=== PATIENT | female | born 1955 | race Caucasian/White ===

== ENCOUNTER 2017-05-05 11:17 | Observation (INO) | payer BC ==
[2017-05-05] MEDS ORDERED: NS 0.9% 1000 ML* 1,000 ML IV ONE (12:22)
--- NOTE | 2017-05-05 12:48 | RAD ---
INDICATION: Code ng. COMPARISON: Correlation is made with a prior MRI of the brain from November 15, 2014. TECHNIQUE: Contiguous axial sections of the brain were obtained from the skull base to the vertex without contrast. FINDINGS: The ventricles, cisterns and sulci are within normal limits. There are small areas of decreased density in the subcortical and periventricular white matter suggestive of mild chronic small vessel ischemic changes. No other focal abnormality or mass effect is seen. There is no evidence for hemorrhage. No significant focal osseous abnormality is seen. The visualized portion of the paranasal sinuses and mastoid air cells appear clear. The results of this exam were called to the referring clinician at 1240 hours. IMPRESSION: 1. NO EVIDENCE FOR GROSS ACUTE INFARCT, MASS EFFECT OR HEMORRHAGE. 2. FINDINGS SUGGESTIVE OF MILD CHRONIC SMALL VESSEL ISCHEMIC CHANGES.
[2017-05-05] MEDS ORDERED: Acetaminophen TAB* 325 MG PO ONE (12:51)
--- NOTE | 2017-05-05 13:02 | RAD ---
HISTORY: Neurological changes COMPARISONS: February 28, 2013 VIEWS:1: Single frontal portable view of the chest at 12:30 PM FINDINGS: LINES AND TUBES: None. CARDIOMEDIASTINAL SILHOUETTE: The cardiomediastinal silhouette is normal for portable technique. PLEURA: The costophrenic angles are sharp. No pleural abnormalities are noted. LUNG PARENCHYMA: The lungs are clear. ABDOMEN: The upper abdomen is clear. There is no subphrenic gas. BONES AND SOFT TISSUES: No bone or soft tissue abnormalities are noted. IMPRESSION: NO ACTIVE CARDIOPULMONARY DISEASE.
[2017-05-05 13:03] LABS: Hematocrit 34 % (35-47); Hemoglobin 11.3 g/dl (12.0-16.0); Mean Corpuscular HGB Conc 33 g/dl (31-36); Mean Corpuscular Hemoglobin 32 pg (27-31); Mean Corpuscular Volume 97 fL (80-97); Mean Platelet Volume 8 um3 (7.4-10.4); Red Blood Count 3.51 10^6/ul (4.0-5.4); Red Cell Distribution Width 13 % (10.5-15); White Blood Count 7.9 10^3/ul (3.5-10.8)
[2017-05-05 13:24] LABS: Albumin 3.8 g/dL (3.2-5.2); BUN/Creatinine Ratio 33.9 (8-20); EGFR African American 61.7 (>60); Globulin 2.9 g/dL (2-4); HDL Cholesterol 98.5 mg/dL; Potassium 5.8 mmol/L (3.5-5.0); Total Bilirubin 0.6 mg/dL (0.2-1.0); Total Protein 6.7 g/dL (6.4-8.9); Troponin I 0.07 ng/mL (<0.04)
[2017-05-05] MEDS ORDERED: rOPINIRole TAB* 1 MG PO ONE (14:02)
[2017-05-05] MEDS ORDERED: Hydrocortisone TAB* 5 MG PO ONE (14:33)
[2017-05-05] MEDS ORDERED: Omeprazole CAP* 20 MG PO ONE (14:33)
[2017-05-05] MEDS ORDERED: Hydrocortisone TAB* 10 MG PO ONE (14:48)
[2017-05-05] MEDS ORDERED: Acetaminophen TAB* 325 MG PO PRN (14:49)
[2017-05-05] MEDS ORDERED: Levalbuterol HFA INHALER* 1 PUFF MDI INH PRN (14:50)
[2017-05-05] MEDS ORDERED: LORazepam TAB(*) 1 MG PO PRN (14:50)
[2017-05-05] MEDS ORDERED: Ibuprofen TAB* 200 MG PO ONE (14:55)
--- NOTE | 2017-05-05 16:12 | ED ---
I, Oh,Sojalen, scribed for Willem Jack MD on 05/05/17 at 1221 . Dizziness - HPI Summary HPI Summary: This 62 y/o female presents to ED for acute room dizziness today 0900 AM. Dizziness makes pt's balance unsteady and still persists since the time of onset. Positive nausea, diaphoresis, and right sided ABDI. She also reports that her ABDI is recurrent. Pt was changing infusion for her insulin pump at the time of onset. PMHx includes Tho, COPD, DM type 1, HTN, and hyperthyroid. Plan of care involving CT scan and blood work is discussed with pt, and she is agreeable. - History Of Current Complaint Chief Complaint: EDDizziness Stated Complaint: GENERAL ILLNESS Time Seen by Provider: 05/05/17 11:59 Hx Obtained From: Patient Timing: Constant Character: Dizzy - unsteady balance Aggravating Factor(s): Nothing Alleviating Factor(s): Nothing Associated Signs And Symptoms: Positive: Nausea, Diaphoresis, Unsteady Gait. Negative: Fever - Allergies/Home Medications Allergies/Adverse Reactions: Allergies Allergy/AdvReac Type Severity Reaction Status Date / Time Ofloxacin Allergy Severe Swelling Verified 11/10/16 09:30 Ramipril Allergy Mild Coughing Verified 11/10/16 09:30 Home Medications: Home Medications Aclidinium [place] [Tudorza Pressair] 1 puff INH BID 05/05/17 [History Confirmed 05/05/17] Aspirin EC Low Dose* [Ecotrin EC Low Dose 81 MG*] 81 mg PO DAILY 05/05/17 [ History Confirmed 05/05/17] Cholecalciferol TAB* [Vitamin D TAB*] 2,000 units PO DAILY 05/05/17 [History Confirmed 05/05/17] Cranberry (Vaccinium Macrocarp [Cranberry] 4,200 mg PO BID 05/05/17 [History Confirmed 05/05/17] Escitalopram (NF) [Lexapro 10 mg (NF)] 10 mg PO DAILY 05/05/17 [History Confirmed 05/05/17] Escitalopram (NF) [Lexapro 5 mg (NF)] 5 mg PO DAILY 05/05/17 [History Confirmed 05/05/17] Fluticas/Salmet 115/21 HFA(NF) [Advair HFA 115/21 (NF)] 2 puff INH BID 05/05/17 [History Confirmed 05/05/17] Furosemide TAB* [Lasix TAB*] 20 mg PO DAILY PRN 05/05/17 [History Confirmed ] Glucagon (Rdna) [Glucagon Emergency Kit] 1 mg INJ ONCE PRN 05/05/17 [History Confirmed 05/05/17] Insulin Lispro [Humalog Kwikpen] 0 - 30 unit SUBCUT . DIRECTED MDD 30 units [History Confirmed 05/05/17] Insulin Lispro [Humalog Kwikpen] 0 - 80 unit SUBCUT . DIRECTED MDD 80 units [History Confirmed 05/05/17] LORazepam TAB(*) [Ativan 1 MG TAB (*)] 1 mg PO BEDTIME PRN 05/05/17 [History Confirmed 05/05/17] Levalbuterol HFA INHALER* [Xopenex Hfa Inhaler*] 1 puff INH Q6H PRN 05/05/17 [ History Confirmed 05/05/17] Levothyroxine TAB* [Synthroid TAB*] 175 mcg PO DAILY 05/05/17 [History Confirmed 05/05/17] Lidocaine PATCH 5%* [Lidoderm 5% Patch*] 1 patch TRANSDERM DAILY 05/05/17 [ History Confirmed 05/05/17] Losartan TAB* [Cozaar TAB*] 50 mg PO DAILY 05/05/17 [History Confirmed 05/05/17] Melatonin 1 mg PO BEDTIME PRN 05/05/17 [History Confirmed 05/05/17] Nitroglycerin TAB 0.4 MG* 0.4 mg SL Q5M PRN 05/05/17 [History Confirmed 05/05/17 ] Omeprazole CAP* [Prilosec CAP* 20 MG] 40 mg PO 1500 05/05/17 [History Confirmed 05/05/17] Ropinirole TAB* [Requip TAB*] 0.5 mg PO BEDTIME 05/05/17 [History Confirmed ] Ropinirole TAB* [Requip TAB*] 1 mg PO 2000 05/05/17 [History Confirmed 05/05/17] Simvastatin (NF) [Zocor (NF)] 40 mg PO DAILY 05/05/17 [History Confirmed 07/25/ 17] rOPINIRole TAB* [Requip TAB*] 0.5 mg PO 1500 05/05/17 [History Confirmed ] PMH/Surg Hx/FS Hx/Imm Hx Endocrine/Hematology History: Reports: Hx Diabetes Cardiovascular History: Reports: Hx Hypertension Denies: Hx Pacemaker/ICD Respiratory History: Reports: Hx Chronic Obstructive Pulmonary Disease (COPD) Denies: Hx Asthma History: Denies: Hx Dialysis, Hx Renal Disease Musculoskeletal History: Denies: Hx Osteoporosis Sensory History: Denies: Hx Hearing Aid Psychiatric History: Denies: Hx Panic Disorder - Cancer History Hx Chemotherapy: No Hx Radiation Therapy: No - Surgical History Surgery Procedure, Year, and Place: C SECTION X2, CATARACTS BILATERAL, APPENDECTOMY, TONSILECTOMY,EAR TUBES PRESENTLY Infectious Disease History: Yes Infectious Disease History: Denies: Traveled Outside the [place] in Last 30 Days - Family History Known Family History: Negative: Other - Breast CA - Social History Alcohol Use: Weekly Alcohol Amount: 2 beers /week Hx Substance Use: No Substance Use Type: Reports: None Hx Tobacco Use: Yes Smoking Status (MU): Former Smoker Type: Cigarettes Have You Smoked in the Last Year: No Review of Systems Positive: Skin Diaphoresis. Negative: Fever Positive: Nausea Neurological: Other - Positive for dizziness. Steady balance Positive: Headache - right sided ABDI All Other Systems Reviewed And Are Negative: Yes Physical Exam - Summary Physical Exam Summary: Well-appearing, no pain distress, BMI > 30 = obese Warm, dry, color reflects adequate perfusion. LUE upper arm ecchymosis Nml head/face Nml eyes Nml ENT Supple, non-tender CTA, breath sound present RRR Abd soft, non-tender, Bowel sounds + Nml musculoskeletal Nml neuro. NEGATIVE PRONATOR DRIFT. NORMAL [id number] test. WIDE BASE GAIT. UNSTEADY RHOMBERG. SUSTAINED LEFT NYSTAGMUS Nml psychiatric, affect/mood appropriate Triage Information Reviewed: Yes Vital Signs On Initial Exam: Initial Vitals Temp Pulse Resp BP Pulse Ox 97.2 F 79 19 152/66 100 05/05/17 11:22 05/05/17 11:22 05/05/17 11:22 05/05/17 11:22 05/05/17 11:22 Vital Signs Reviewed: Yes - [place] Coma Scale Coma Scale Total: 15 Diagnostics - Vital Signs Vital Signs Temp Pulse Resp BP Pulse Ox 05/05/17 11:22 97.2 F 79 19 152/66 100 - Laboratory Lab Results: Lab Results 05/05/17 05/05/17 05/05/17 Range/Units 12:41 12:41 12:41 WBC 7.9 (3.5-10.8) 10^3/ul RBC 3.51 L (4.0-5.4) 10^6/ul Hgb 11.3 L (12.0-16.0) g/dl Hct 34 L (35-47) % MCV 97 (80-97) fL MCH 32 H (27-31) pg MCHC 33 (31-36) g/dl RDW 13 (10.5-15) % Plt Count 313 (150-450) 10^3/ul MPV 8 (7.4-10.4) um3 Neut % (Auto) 75.0 (38-83) % Lymph % (Auto) 14.7 L (25-47) % Turner % (Auto) 9.3 H (1-9) % Eos % (Auto) 0.8 (0-6) % Baso % (Auto) 0.2 (0-2) % Absolute Neuts (auto) 5.9 (1.5-7.7) 10^3/ul Absolute Lymphs (auto) 1.2 (1.0-4.8) 10^3/ul Absolute Monos (auto) 0.7 (0-0.8) 10^3/ul Absolute Eos (auto) 0.1 (0-0.6) 10^3/ul Absolute Basos (auto) 0 (0-0.2) 10^3/ul Absolute Nucleated RBC 0 10^3/ul Nucleated RBC % 0 INR (Anticoag Therapy) 0.81 L (0.89-1.11) APTT 25.3 L (26.0-36.3) seconds Sodium 130 L (133-145) mmol/L Potassium 5.8 H (3.5-5.0) mmol/L Chloride 101 (101-111) mmol/L Carbon Dioxide 23 (22-32) mmol/L Anion Gap 6 (2-11) mmol/L BUN 39 H (6-24) mg/dL Creatinine 1.15 H (0.51-0.95) mg/dL Est GFR ( Amer) 61.7 (>60) Est GFR (Non-Af Amer) 48.0 (>60) BUN/Creatinine Ratio 33.9 H (8-20) Glucose 209 H (70-100) mg/dL Lactic Acid (0.5-2.0) mmol/L Calcium 10.0 (8.6-10.3) mg/dL Total Bilirubin 0.60 (0.2-1.0) mg/dL AST 22 (13-39) U/L ALT 28 (7-52) U/L Alkaline Phosphatase 75 (34-104) U/L Troponin I 0.07 H* (<0.04) ng/mL Total Protein 6.7 (6.4-8.9) g/dL Albumin 3.8 (3.2-5.2) g/dL Globulin 2.9 (2-4) g/dL Albumin/Globulin Ratio 1.3 (1-3) Triglycerides 76 mg/dL Cholesterol 211 mg/dL LDL Cholesterol 97 mg/dL HDL Cholesterol 98.5 mg/dL Blood Type Antibody Screen 05/05/17 05/05/17 Range/Units 12:41 12:41 WBC (3.5-10.8) 10^3/ul RBC (4.0-5.4) 10^6/ul Hgb (12.0-16.0) g/dl Hct (35-47) % MCV (80-97) fL MCH (27-31) pg MCHC (31-36) g/dl RDW (10.5-15) % Plt Count (150-450) 10^3/ul MPV (7.4-10.4) um3 Neut % (Auto) (38-83) % Lymph % (Auto) (25-47) % Turner % (Auto) (1-9) % Eos % (Auto) (0-6) % Baso % (Auto) (0-2) % Absolute Neuts (auto) (1.5-7.7) 10^3/ul Absolute Lymphs (auto) (1.0-4.8) 10^3/ul Absolute Monos (auto) (0-0.8) 10^3/ul Absolute Eos (auto) (0-0.6) 10^3/ul Absolute Basos (auto) (0-0.2) 10^3/ul Absolute Nucleated RBC 10^3/ul Nucleated RBC % INR (Anticoag Therapy) (0.89-1.11) APTT (26.0-36.3) seconds Sodium (133-145) mmol/L Potassium (3.5-5.0) mmol/L Chloride (101-111) mmol/L Carbon Dioxide (22-32) mmol/L Anion Gap (2-11) mmol/L BUN (6-24) mg/dL Creatinine (0.51-0.95) mg/dL Est GFR ( Amer) (>60) Est GFR (Non-Af Amer) (>60) BUN/Creatinine Ratio (8-20) Glucose (70-100) mg/dL Lactic Acid 1.7 (0.5-2.0) mmol/L Calcium (8.6-10.3) mg/dL Total Bilirubin (0.2-1.0) mg/dL AST (13-39) U/L ALT (7-52) U/L Alkaline Phosphatase (34-104) U/L Troponin I (<0.04) ng/mL Total Protein (6.4-8.9) g/dL Albumin (3.2-5.2) g/dL Globulin (2-4) g/dL Albumin/Globulin Ratio (1-3) Triglycerides mg/dL Cholesterol mg/dL LDL Cholesterol mg/dL HDL Cholesterol mg/dL Blood Type O Negative Antibody Screen Negative Result Diagrams: 05/05/17 12:41 05/05/17 12:41 Lab Statement: Any lab studies that have been ordered have been reviewed, and results considered in the medical decision making process. - Radiology CXR Xray Interpretation: No Acute Changes Radiology Interpretation Completed By: Radiologist - CT Brain CT Interpretation: No Acute Changes - 1. NO EVIDENCE FOR GROSS ACUTE INFARCT, MASS EFFECT OR HEMORRHAGE. 2. FINDINGS SUGGESTIVE OF MILD CHRONIC SMALL VESSEL ISCHEMIC CHANGES. CT Interpretation Completed By: Radiologist - EKG 1252 Cardiac Rate: NL - NSR with 82 bpm EKG Rhythm: Sinus Rhythm Dizzy Course/Dx - Course Course Of Treatment: Consultation with Dr. Espinosa (Neurologist) at 1225 PM -- will see pt in ED. Consultation with Dr. Levine (Hospitalist) at [address] Krause (Primary care provider) at 1415 PM Assessment/Plan: Ms. Perales was unsteady on her feet with a week romberg so a Code Ben was called when I saw her. Dr. Espinosa felt that she should be W/U as her findings were subtle. Her CT was fine and her trop returnde at 0.07. It is unclear what happenned. This could have been a near syncopal episode, hypoglycemia or a tia. She will be admitted and monitored. - Diagnoses Provider Diagnoses: Near syncope During the Visit The Following Alert/Code Occurred: Code Contreras - at 1219 PM - Provider Notifications Discussed Care Of Patient With: Coy Espinosa Time Discussed With Above Provider: 12:25 - Critical Care Time Critical Care Time: 30-74 min Discharge - Discharge Plan Condition: Stable Disposition: ADMITTED TO [facility] The documentation as recorded by the Hermilo freitas Soohyun accurately reflects the service I personally performed and the decisions made by me, Willem Jack MD.
--- NOTE | 2017-05-05 16:18 | CONS ---
NEUROLOGY CONSULTATION: DATE OF CONSULT: 05/05/17 She is in the emergency room. REFERRING PROVIDER: Dr. Willem Jack. PRIMARY CARE PHYSICIAN: Dr. Hector Krause. CHIEF COMPLAINT: Dizziness, headache, nausea. HISTORY OF PRESENT ILLNESS: Justice Perales is a 62-year-old woman who was in her usual state of health at 9 this morning, changing some of the components of her insulin pump. She suddenly got very sweaty and felt dizzy. She developed a headache. She spoke to her on the phone, was able to speak clearly. He advised that she go to the emergency room and so she called an ambulance, was brought in. She feels better now, but has a dull bifrontal headache and a little bit of nausea. The dizziness is at this point very mild and much better. There was never any change in vision, double vision, difficulty speaking, or new numbness. She has chronic numbness in her feet attributed to diabetic neuropathy. She did not check her blood sugar this morning when this started, but her fingerstick here in the emergency room is 207. She did not lose consciousness. Dr. Jack evaluated the patient and subsequently called a deya ng. PAST MEDICAL HISTORY: There is no prior history of cerebrovascular events. She has a history of juvenile onset diabetes and panhypopituitarism. There is no history of heart disease according to the patient, but she has a history of hypertension. She has had episodes of hypoglycemia in the past according to our record review. She has a history of hypothyroidism in addition to Tho' s disease. MEDICATIONS AT HOME: Consist of: 1. Insulin pump with Humalog insulin. 2. Hydrocortisone 5 mg tablets taken 2 in the morning, 1-1/2 at 3 p.m., and 0.5 in the evening. 3. Losartan 50 mg p.o. daily. 4. Levoxyl 175 mcg p.o. daily. 5. Advair inhaler 2 puffs b.i.d. 6. Xopenex inhaler p.r.n. 7. Lexapro 15 mg p.o. q.h.s. 8. Omeprazole 40 mg p.o. q.h.s. 9. Simvastatin 40 mg p.o. daily, which was just increased according to the patient. 10. Ropinirole 0.5 mg 1 at 3 p.m., 2 at 8 p.m., 1 at bedtime. 11. Aspirin 81 mg p.o. daily. 12. Vitamin D3 2000 units p.o. daily. 13. Lorazepam 1 mg p.o. q.h.s. p.r.n. insomnia. 14. Furosemide 20 mg p.r.n. edema. 15. Glucagon pen as needed. 16. Nitroglycerin 0.4 mg p.r.n. FAMILY HISTORY: Noncontributory. SOCIAL HISTORY: She is a nonsmoker. REVIEW OF SYSTEMS: Notable for diabetic retinopathy, detached retina, resultant poor vision in both eyes, but worse on the left. She has numbness in her feet, but no pain in her feet. She has not had any recent falls. No history of seizures or strokes. She has a history of gastroesophageal reflux, but no history of intestinal bleeding. No numbness of her face or upper extremities. She has a history of migraine headaches which she said she used to get as a child, but not in recent times; however, she also said that she was getting headaches every day for a while and Dr. Krause had her stopped taking nonsteroidals because of risks of renal disease. She takes Tylenol when she gets a headache currently, but it does not help very much. PHYSICAL EXAM: She is well nourished and well hydrated. Temperature is 97.2 temporally, blood pressure 150/60, heart rates in the 70s on the monitor and seems regular. Oxygen saturation is 100% on room air. Heart is in a regular rhythm without murmurs heard. Neck is supple. Carotid pulses are symmetrical and there are no cervical bruits. Lungs are clear anterolaterally. Oral mucosa is moist and atraumatic. Neurological Exam: Pupils react equally from 3 to 2.5 mm. She has retinal scars fairly extensively in both eyes and pale. Sharp optic discs. Eye movements are normal. Visual petty are full on the right eye, but she has diminished vision in the left eye. Facial musculature is symmetric. Facial sensation to light touch is symmetric as well. Tongue protrudes in the midline and palate rises symmetrically. Speech is clear without dysarthria. Hearing is intact. Neck strength is normal. Motor exam reveals atrophy of foot intrinsics, but normal tone and strength in the upper and lower extremities. There is no drift of the upper or lower extremities. Sensory exam is notable for distal loss to light touch in the toes. The rest of the sensory exam is normal. Reflexes are brisk at the knees, absent at the ankles, normal at the biceps. Plantar responses are flexor bilaterally. [id number] maneuver and [id number]-me-[id number] maneuver are normal bilaterally. Finger taps are normal in both hands. Language is fluent. She is a good historian with intact memory. She is oriented and attention and concentration seem intact. DIAGNOSTIC STUDIES/LAB DATA: CT of the brain is reviewed and reveals some patchy hypodensity in the deep white matter suggestive of chronic ischemic disease, but there are no hemorrhages, masses, or evidence of prior infarctions otherwise. EKG reveals a possible left axis deviation, but is otherwise unremarkable. All of her blood tests are still pending. IMPRESSION: Ms. Perales presents with a sudden onset of diaphoresis and feeling dizzy and headache. Her symptoms are fairly nonspecific for a stroke. Conceivably she could have a brainstem transient ischemic attack or stroke, but her exam is completely nonlocalizing and her symptoms are fairly nonspecific. She might have been hypoglycemic as an alternative or she could have had a cardiac event. I do not recommend TPA at the point that I initially evaluated her which was approximately 3 hours and 30 to 45 minutes after onset of symptoms. I recommend continued evaluation. Her blood tests are still pending and her fingerstick glucose currently is in good shape. Her EKG looks stable, but all the other labs are pending. If she continues to feel ill and lab test are unrevealing, then I had recommended MRI of the brain to look for evidence of brainstem ischemia. I have discussed my initial impression with Dr. Jack. [id number]/[facility] #: [id number] JUNIOR
--- NOTE | 2017-05-05 17:15 | RAD ---
Indication: Nausea and dizziness this morning. Gait abnormality. Diabetic. Comparison: CT of the same date and November 15, 2014 MRI. Technique: bMenua 1.5 Belkis [id number] with GEM suite. MRI brain without contrast. Report: Diffusion series is negative for acute or subacute ischemia. Susceptibility series is negative for stigmata of hemosiderin deposition to indicate previous hemorrhage. Unremarkable cerebral sulci, ventricles, basal cisterns. Unchanged small burden of nonspecific T2 hyperintensities within the periventricular and subcortical white matter of the cerebral hemispheres compared with the 2015 exam. Negative for associated mass effect. Negative for intra or extra-axial fluid collection. Preserved major intracranial flow-voids. Unremarkable orbital contents. Unremarkable calvarium and skull base. Grossly clear paranasal sinuses and mastoid air spaces. Unremarkable scalp. IMPRESSION: 1. No evidence for acute or subacute ischemia. 2. Negative for mass effect. 3. Nonspecific cerebral white matter hyperintensities without change compared with the 2015 exam most likely representing chronic small vessel ischemic disease however the differential includes demyelinating disease and white matter signal abnormalities seen in association with migraine headaches and prior foci of inflammation.
--- NOTE | 2017-05-05 17:18 | RAD ---
Indication: Dizziness, gait abnormality. Diabetic. Comparison: MRI of the same date. Technique: Corrigo [place] 1.5 Belkis [id number] with GEM suite. MR angiography 3-D [id number] data was obtained with rotational display of the [place] and posterior fossa arteries. Report: Negative for central intracranial aneurysm or vascular malformation. Unremarkable intracranial internal carotid arteries as well as the M1 and M2 segments of the middle cerebral arteries and the A1 and A2 segments of the anterior cerebral arteries. Small patent anterior communicating artery visualized. Unremarkable vertebral or and basilar arteries as well as the cerebellar artery origins. Patent posterior cerebral arteries are supplied primarily by the posterior circulation with normal variant hypoplastic posterior communicating arteries visualized. IMPRESSION: Negative MRA of the [place].
[2017-05-05 18:05] LABS: Troponin I 0.06 ng/mL (<0.04)
[2017-05-05 19:34] LABS: BUN/Creatinine Ratio 28.2 (8-20); Calcium 9.5 mg/dL (8.6-10.3); EGFR African American 60.5 (>60); Potassium 4.6 mmol/L (3.5-5.0)
[2017-05-05] MEDS: Mometasone/Formoter 200/5 MDI INH SCH (20:13)
[2017-05-05] MEDS: Aclidinium POWDER MDI(NF) INH SCH (20:16)
[2017-05-05] MEDS: Hydrocortisone TAB* 5 MG PO SCH (20:50)
[2017-05-05] MEDS: Heparin VIAL(*) 5000 UNITS/ML VIAL (FIVE THOUSAND) SUBCUT SCH (20:51)
[2017-05-05] MEDS: Ropinirole TAB* 0.5 MG TAB PO SCH (20:51)
[2017-05-05] MEDS: rOPINIRole TAB* 1 MG PO SCH (20:51)
[2017-05-05] MEDS: Lidocaine Patch REMOVE* 1 NOTE MISC PATCH OFF SCH (21:10)
--- NOTE | 2017-05-05 21:31 | HP ---
HISTORY AND PHYSICAL: DATE OF ADMISSION: 05/05/17 PRIMARY CARE PHYSICIAN: Dr. Hector Krause. CHIEF COMPLAINT: Presyncope. HISTORY OF PRESENT ILLNESS: Ms. Perales is a 62-year-old female with a history of Oliver's disease, type 1 diabetes with insulin pump, hypertension, COPD, hypothyroidism, restless leg syndrome who presents to the hospital with presyncopal symptoms. The patient states she woke up this morning and felt well. She had her morning pills and then ate breakfast. She noted her insulin pump was empty so she was standing up refilling it when suddenly she felt acute onset diaphoresis, lightheadedness, headache, nausea, some abdominal discomfort followed by loose stool. The patient states she had been standing up for about 10 minutes. She denies any chest pain, associated shortness of breath, but did feel some palpitations. Her happened to call around that time and she told him what was going on. He recommended she call the 911. She denies any focal weakness and she says her did not mention that she seemed to have any speech issues on the phone. The patient states when EMS arrived, her lightheadedness had seemed to improve, but her nausea and headache were still present and she still feels to some degree at this time. The patient's blood sugar when she checked at home was 174. She does state that over the past few days, she has noticed when she is bending down to pick something up and she stands back up, she feels very lightheaded, also noticed some urinary urgency that had been on for about 5 days. Denies any dysuria and she states the urgency symptoms resolved 2 to 3 days ago. PAST MEDICAL HISTORY: Type 1 diabetes, Tho's disease, hypertension, COPD, hypothyroidism, restless leg syndrome, GERD, hyperlipidemia, neuropathy, retinopathy and anxiety. PAST SURGICAL HISTORY: x2. HOME MEDICATIONS: 1. Ropinirole 0.5 mg at 3 p.m., 1 mg at 8 p.m., 0.5 mg by mouth at bedtime. 2. Omeprazole 40 mg by mouth at 3 p.m. 3. Hydrocortisone 10 mg by mouth in the morning, 7.5 mg by mouth in the afternoon, 2.5 mg by mouth at bedtime. 4. Melatonin 1 mg by mouth at bedtime as needed for sleep. 5. Cranberry 4200 mg by mouth 2 times daily. 6. Aspirin 81 mg by mouth daily. 7. Xopenex 1 puff inhaled every 6 hours as needed for shortness of breath or wheezing. 8. Tudorza 1 puff inhaled 2 times daily. 9. Advair 2 puffs inhaled 2 times daily. 10. Humalog insulin pump. 11. Simvastatin 40 mg by mouth daily. 12. Ativan 1 mg by mouth at bedtime as needed for insomnia. 13. Nitroglycerin 0.4 mg by mouth every 5 minutes as needed for chest pain. 14. Losartan 50 mg by mouth daily. 15. Lidocaine 1 patch transdermal daily. 16. Synthroid 175 mcg by mouth daily. 17. Lasix 20 mg by mouth daily as needed for lower extremity edema. 18. Lexapro 15 mg by mouth daily. 19. Vitamin D 2000 units by mouth daily. ALLERGIES: Reports allergies to RAMIPRIL and OFLOXACIN. FAMILY HISTORY: Significant for mother with thyroid problem, sister with hypertension. SOCIAL HISTORY: The patient is a half pack per day smoker for about 36 years, will have 2 beers a few times a week with her niece. She denies any illicit drug use. REVIEW OF SYSTEMS: A 12-point review of systems negative except for that as noted in the HPI. PHYSICAL EXAMINATION GENERAL: The patient is a pleasant, middle-aged female, lying in bed , in no apparent distress. VITAL SIGNS: On admission, temperature 97.2, heart rate of 79, respiratory rate of 19, O2 saturation 100% on room air, blood pressure 152/66. HEENT: Head: Normocephalic, atraumatic. Eyes: Pupils are equal, round, and reactive to light and accommodation. Anicteric sclerae. ENT: Moist mucous membranes. No cervical adenopathy. Posterior oropharynx is clear. LUNGS: Clear to auscultation bilaterally. No wheezes, rales, or rhonchi. CARDIOVASCULAR: Regular rate and rhythm. S1 and S2 present. No murmurs, gallops, or rubs. ABDOMEN: Soft, nontender, and nondistended. Bowel sounds positive. EXTREMITIES: No cyanosis, clubbing, or edema. NEUROLOGIC: The patient is alert and oriented x3. Strength is 5/5 throughout bilaterally in upper and lower extremities. Sensation intact and symmetric. Cranial nerves grossly intact. SKIN: Warm, dry, and well-perfused. DIAGNOSTIC STUDIES/LAB DATA: White blood cell count of 7.9, hematocrit of 34, platelets of 313, INR was 0.81. Sodium 130, potassium 5.8, chloride of 101, carbon dioxide of 23, BUN of 39, creatinine of 1.15, glucose of 209, lactic acid of 1.7. LFTs are within normal limits. Troponin of 0.07. EKG personally reviewed, shows normal sinus rhythm, no acute ST changes, no peaked T-wave. CT of the brain shows no evidence for gross acute infarct, mass effect, or hemorrhage. Chest x-ray, personally reviewed, shows no acute cardiac disease. ASSESSMENT AND PLAN: Presyncope, mild troponin elevation in a 62-year-old female with a past medical history of Oliver's disease, type 1 diabetes, hypertension, hypothyroidism. 1. Presyncope. With the patient's symptoms of nausea, diaphoresis, diarrhea, this sounds like a vasovagal episode, although it is not clear what may have triggered this. We will check the patient's orthostatic vital signs. UA is pending to evaluate for evidence of infection. The patient does have a mild troponin elevation of 0.07. We will continue to trend this for now and monitor the patient on telemetry to evaluate for any underlying arrhythmias. I appreciate Neurology's assistance. Dr. Espinosa does not feel this presentation was consistent with a stroke. However, he did recommend an MRI to rule out any posterior pathology. 2. History of Oliver's disease. With the patient's recent symptoms as well as her mild hyponatremia and hyperkalemia, will double the patient's home hydrocortisone dosing after discussing this with Dr. Krause. I will recheck a BMP later today to watch her potassium. She has no peaked T-waves on her EKG presently. 3. Hypertension. Blood pressures were a bit elevated when she came in, but have been trending down since then. We will hold off on her home losartan for now. 4. Chronic obstructive pulmonary disease. Continue Xopenex p.r.n. We will write for Dulera instead of the patient's Advair while she is hospitalized. 5. Diabetes. We will allow the patient to manage her insulin pump while hospitalized. We will check BGs q.a.c. and h.s. 6. Restless leg syndrome. Continue home ropinirole. 7. Hypothyroidism. Continue home Synthroid. We will add on TSH. 8. DVT prophylaxis. Heparin subcu. 9. Code status. The patient is a full code. TIME SPENT: Total time spent on this admission 60 minutes with over half the time spent [id number] with the patient in counseling and coordinating care. [id number]/CPS #: [id number] MTDD
[2017-05-06] MEDS: Levothyroxine TAB* 175 MCG TAB PO SCH (06:04)
[2017-05-06] MEDS: Heparin VIAL(*) 5000 UNITS/ML VIAL (FIVE THOUSAND) SUBCUT SCH ×3 (06:04→21:42)
[2017-05-06 06:37] LABS: Urine Bilirubin Negative (Negative); Urine Glucose Negative (Negative); Urine Nitrite Negative (Negative)
[2017-05-06] MEDS ORDERED: D5W 1000 ML BAG* 1,000 ML IV SCH (07:00)
[2017-05-06 07:54] LABS: Hematocrit 33 % (35-47); Hemoglobin 11.2 g/dl (12.0-16.0); Mean Corpuscular HGB Conc 34 g/dl (31-36); Mean Corpuscular Hemoglobin 33 pg (27-31); Mean Corpuscular Volume 96 fL (80-97); Mean Platelet Volume 7 um3 (7.4-10.4); Red Blood Count 3.41 10^6/ul (4.0-5.4); Red Cell Distribution Width 13 % (10.5-15); White Blood Count 5.4 10^3/ul (3.5-10.8)
--- NOTE | 2017-05-06 08:35 | PN ---
Subjective - Subjective Reason for Note: Discharge Note History: Discharge Summary Fredo Perales presented yesterday with an acute episode. She had completed b' fast (cereal, milk, coffee). She had stood for 15 mins doing the dishes - went up stairs to change her insulin pump set. She felt her stomach was "bad" - she needed to go to the bathroom. She had loose BM. At that time she developed bright lights as a halo around both eyes - she has had episodes like this before - and developed a headache. She was nauseated, but didn't vomit. She had abdominal discomfort. She felt light headed and need to sit down as she felt faint, but there was no syncope. The whole episode lasted 10 - 15 mins. Her called and suggested she call 911. She had no recent travel/long car journeys. She denies tick bites or other intercurrent illness. She has had no particular problems with her glycemic control. She hadn't missed her hydrocortisone for her primary adrenal insufficiency. Subsequent to this she has had a headache that continues - it is mostly right sided, she has slight photophobia. She is hungry this morning and feels normal. She had a hypoglycemic episode in the early hours. T1D on insulin pump: Basal rates; Midnight 1.65, 3 am 1./75, 6 pm 1.85 Insulin: carb ratio 1:10 Sensitivity 12 She has had no chest pain, dyspnea, palpitations or edema. She has a slight cough. Active Problems: Active Problems Diarrhea (Acute) R19.7 Elevated troponin I level (Acute) R74.8 Hypoglycemia (Acute) E16.2 Migraine (Acute) G43.909 Nausea (Acute) R11.0 Near syncope (Acute) Adrenal insufficiency (Tho's disease) (Chronic) E27.1 COPD (chronic obstructive pulmonary disease) (Chronic) J44.9 GERD (gastroesophageal reflux disease) (Chronic) K21.9 Hypercholesteremia (Chronic) E78.[address] (Chronic) Z96.41 Type 1 diabetes mellitus with nephropathy (Chronic) E10.21 Type 1 diabetes, controlled, with neuropathy (Chronic) E10.40 Current Medications: Current Medications Acetaminophen (Tylenol Tab*) 650 mg PO Q4H PRN PRN Reason: FEVER/PAIN Aclidinium [place] (Tudorza Press Mdi(Nf)) 1 puff INH BID KELLY Last Admin: 05/05/17 20:16 Dose: Not Given Aspirin (Aspirin Ec Low Dose*) 81 mg PO DAILY [facility] Atorvastatin Calcium (Lipitor*) 20 mg PO DAILY [facility] Cholecalciferol (Vitamin D Tab*) 2,000 units PO DAILY [facility] Citalopram Hydrobromide (Celexa Tab*) 30 mg PO DAILY [facility] PRN Reason: Protocol Heparin Sodium (Porcine) (Heparin Vial(*)) 5,000 units SUBCUT Q8HR [facility] Last Admin: 05/06/17 06:04 Dose: 5,000 units Hydrocortisone (Cortef Tab*) 15 mg PO 1500 [facility] Hydrocortisone (Cortef Tab*) 20 mg PO QAM [facility] Hydrocortisone (Cortef Tab*) 5 mg PO BEDTIME [facility] Last Admin: 05/05/17 20:50 Dose: 5 mg Dextrose (D5w 1000 Ml Bag*) 1,000 mls @ 100 mls/hr IV PER RATE [facility] Levalbuterol HCl (Xopenex Hfa Inhaler*) 1 puff INH Q6H PRN PRN Reason: SHORTNESS OF BREATH Levothyroxine Sodium (Synthroid Tab*) 175 mcg PO DAILY@0600 [facility] Last Admin: 05/06/17 06:04 Dose: 175 mcg Lidocaine (Lidoderm 5% Patch*) 1 patch TRANSDERM DAILY [facility] Lorazepam (Ativan Tab(*)) 1 mg PO BEDTIME PRN PRN Reason: SLEEP Mometasone Furoate/Formoterol Fumar (Dulera 200/5 Mdi*) 2 puff INH BID [facility] PRN Reason: Protocol Last Admin: 05/05/17 20:13 Dose: 2 puff Omeprazole (Prilosec Cap*) 40 mg PO 1500 [facility] Pharmacy Profile Note (Lidocaine Patch Remove*) 1 note PATCH OFF 2100 [facility] Last Admin: 05/05/17 21:10 Dose: Not Given Ropinirole HCl (Requip Tab*) 0.5 mg PO BEDTIME [facility] Last Admin: 05/05/17 20:51 Dose: 0.5 mg Ropinirole HCl (Requip Tab*) 1 mg PO 2000 [facility] Last Admin: 05/05/17 20:51 Dose: 1 mg Ropinirole HCl (Requip Tab*) 0.5 mg PO 1500 [facility] Home Medications: Home Medications Medication Instructions Recorded Confirmed Type Hydrocortisone 2.5 mg PO BEDTIME 11/13/14 05/05/17 History Hydrocortisone [Cortef] 7.5 mg PO 1500 11/10/16 05/05/17 History Hydrocortisone [Cortef] 10 mg PO QAM 11/10/16 05/05/17 History Aclidinium [place] [Tudorza 1 puff INH BID 05/05/17 05/05/17 History Pressair] Aspirin EC Low Dose* [Ecotrin EC 81 mg PO DAILY 05/05/17 05/05/17 History Low Dose 81 MG*] Cholecalciferol TAB* [Vitamin D 2,000 units PO DAILY 05/05/17 05/05/17 History TAB*] Cranberry (Vaccinium Macrocarp 4,200 mg PO BID 05/05/17 05/05/17 History [Cranberry] Escitalopram (NF) [Lexapro 10 mg 10 mg PO DAILY 05/05/17 05/05/17 History (NF)] Escitalopram (NF) [Lexapro 5 mg 5 mg PO DAILY 05/05/17 05/05/17 History (NF)] Fluticas/Salmet 115/21 HFA(NF) 2 puff INH BID 05/05/17 05/05/17 History [Advair HFA 115/21 (NF)] Furosemide TAB* [Lasix TAB*] 20 mg PO DAILY PRN 05/05/17 05/05/17 History Glucagon (Rdna) [Glucagon 1 mg INJ ONCE PRN 05/05/17 05/05/17 History Emergency Kit] Insulin Lispro [Humalog Kwikpen] 0 - 30 unit SUBCUT . DIRECTED 05/05/17 History MDD 30 units Insulin Lispro [Humalog Kwikpen] 0 - 80 unit SUBCUT . DIRECTED 05/05/17 History MDD 80 units LORazepam TAB(*) [Ativan 1 MG TAB 1 mg PO BEDTIME PRN 05/05/17 05/05/17 History (*)] Levalbuterol HFA INHALER* [Xopenex 1 puff INH Q6H PRN 05/05/17 05/05/17 History Hfa Inhaler*] Levothyroxine TAB* [Synthroid TAB*] 175 mcg PO DAILY 05/05/17 05/05/17 History Lidocaine PATCH 5%* [Lidoderm 5% 1 patch TRANSDERM DAILY 05/05/17 05/05/17 History Patch*] Losartan TAB* [Cozaar TAB*] 50 mg PO DAILY 05/05/17 05/05/17 History Melatonin 1 mg PO BEDTIME PRN 05/05/17 05/05/17 History Nitroglycerin TAB 0.4 MG* 0.4 mg SL Q5M PRN 05/05/17 05/05/17 History Omeprazole CAP* [Prilosec CAP* 20 40 mg PO 1500 05/05/17 05/05/17 History MG] Ropinirole TAB* [Requip TAB*] 0.5 mg PO BEDTIME 05/05/17 05/05/17 History Ropinirole TAB* [Requip TAB*] 1 mg PO 2000 05/05/17 05/05/17 History Simvastatin (NF) [Zocor (NF)] 40 mg PO DAILY 05/05/17 05/05/17 History rOPINIRole TAB* [Requip TAB*] 0.5 mg PO 1500 05/05/17 05/05/17 History Allergies: Allergies Allergy/AdvReac Type Severity Reaction Status Date / Time Ofloxacin Allergy Severe Swelling Verified 11/10/16 09:30 Ramipril Allergy Mild Coughing Verified 11/10/16 09:30 Objective - Vital Signs Vital Signs: Vital Signs 05/05/17 05/05/17 05/05/17 14:15 14:36 15:27 Temperature 98.4 F Pulse Rate 81 82 Respiratory 22 18 27 Rate Blood Pressure 98/78 123/75 (mmHg) O2 Sat by Pulse 98 96 Oximetry 05/05/17 05/05/17 05/05/17 15:30 15:40 15:50 Temperature Pulse Rate Respiratory 19 8 11 Rate Blood Pressure (mmHg) O2 Sat by Pulse Oximetry 05/05/17 05/05/17 05/05/17 17:24 17:30 17:40 Temperature Pulse Rate Respiratory 20 12 25 Rate Blood Pressure (mmHg) O2 Sat by Pulse Oximetry 05/05/17 05/05/17 05/05/17 17:50 18:00 18:10 Temperature Pulse Rate Respiratory 17 22 17 Rate Blood Pressure (mmHg) O2 Sat by Pulse Oximetry 05/05/17 05/05/17 05/05/17 18:20 18:30 18:40 Temperature Pulse Rate Respiratory 18 24 16 Rate Blood Pressure (mmHg) O2 Sat by Pulse Oximetry 05/05/17 05/05/17 05/05/17 18:50 19:00 19:10 Temperature Pulse Rate Respiratory 14 21 12 Rate Blood Pressure (mmHg) O2 Sat by Pulse Oximetry 05/05/17 05/05/17 05/05/17 19:20 19:30 19:38 Temperature 98.5 F Pulse Rate 77 Respiratory 17 16 20 Rate Blood Pressure 118/48 (mmHg) O2 Sat by Pulse 98 Oximetry 05/05/17 05/05/17 05/05/17 19:40 19:50 20:00 Temperature Pulse Rate Respiratory 13 16 11 Rate Blood Pressure (mmHg) O2 Sat by Pulse 98 Oximetry 05/05/17 05/05/17 05/05/17 20:10 20:20 20:30 Temperature Pulse Rate Respiratory 15 15 15 Rate Blood Pressure (mmHg) O2 Sat by Pulse Oximetry 05/05/17 05/05/17 05/05/17 20:40 20:50 21:00 Temperature Pulse Rate Respiratory 10 12 15 Rate Blood Pressure (mmHg) O2 Sat by Pulse Oximetry 05/05/17 05/05/17 05/05/17 21:10 21:20 21:30 Temperature Pulse Rate Respiratory 13 13 14 Rate Blood Pressure (mmHg) O2 Sat by Pulse Oximetry 05/05/17 05/05/17 05/05/17 21:40 21:50 22:00 Temperature Pulse Rate Respiratory 13 15 14 Rate Blood Pressure (mmHg) O2 Sat by Pulse Oximetry 05/05/17 05/05/17 05/05/17 22:10 22:20 22:30 Temperature Pulse Rate Respiratory 20 14 14 Rate Blood Pressure (mmHg) O2 Sat by Pulse Oximetry 05/05/17 05/05/17 05/05/17 22:40 22:46 22:50 Temperature 98.4 F Pulse Rate 77 Respiratory 14 16 14 Rate Blood Pressure 126/49 (mmHg) O2 Sat by Pulse 97 Oximetry 05/05/17 05/05/17 05/05/17 23:00 23:10 23:12 Temperature Pulse Rate Respiratory 0 6 14 Rate Blood Pressure (mmHg) O2 Sat by Pulse Oximetry 05/05/17 05/05/17 05/05/17 23:20 23:30 23:40 Temperature Pulse Rate Respiratory 14 14 16 Rate Blood Pressure (mmHg) O2 Sat by Pulse Oximetry 05/05/17 05/06/17 05/06/17 23:50 00:00 00:10 Temperature Pulse Rate Respiratory 14 13 14 Rate Blood Pressure (mmHg) O2 Sat by Pulse Oximetry 05/06/17 05/06/17 05/06/17 00:20 00:30 00:40 Temperature Pulse Rate Respiratory 14 13 15 Rate Blood Pressure (mmHg) O2 Sat by Pulse Oximetry 05/06/17 05/06/17 05/06/17 00:50 01:00 01:10 Temperature Pulse Rate Respiratory 13 13 15 Rate Blood Pressure (mmHg) O2 Sat by Pulse Oximetry 05/06/17 05/06/17 05/06/17 01:20 01:30 01:40 Temperature Pulse Rate Respiratory 18 14 13 Rate Blood Pressure (mmHg) O2 Sat by Pulse Oximetry 05/06/17 05/06/17 05/06/17 01:50 02:00 02:10 Temperature Pulse Rate Respiratory 13 12 12 Rate Blood Pressure (mmHg) O2 Sat by Pulse Oximetry 05/06/17 05/06/17 05/06/17 02:20 02:30 02:40 Temperature Pulse Rate Respiratory 13 13 14 Rate Blood Pressure (mmHg) O2 Sat by Pulse Oximetry 05/06/17 05/06/17 05/06/17 02:50 03:00 03:07 Temperature 98.3 F Pulse Rate 75 Respiratory 14 15 16 Rate Blood Pressure 124/53 (mmHg) O2 Sat by Pulse 97 Oximetry 05/06/17 05/06/17 05/06/17 03:10 03:20 03:30 Temperature Pulse Rate Respiratory 14 12 17 Rate Blood Pressure (mmHg) O2 Sat by Pulse Oximetry 05/06/17 05/06/17 05/06/17 03:40 03:50 04:00 Temperature Pulse Rate Respiratory 15 15 14 Rate Blood Pressure (mmHg) O2 Sat by Pulse Oximetry 05/06/17 05/06/17 05/06/17 04:10 04:20 04:30 Temperature Pulse Rate Respiratory 15 14 15 Rate Blood Pressure (mmHg) O2 Sat by Pulse Oximetry 05/06/17 05/06/17 05/06/17 04:40 04:50 05:00 Temperature Pulse Rate Respiratory 15 15 15 Rate Blood Pressure (mmHg) O2 Sat by Pulse Oximetry 05/06/17 05/06/17 05/06/17 05:10 05:20 05:30 Temperature Pulse Rate Respiratory 15 15 16 Rate Blood Pressure (mmHg) O2 Sat by Pulse Oximetry 05/06/17 05/06/17 05/06/17 05:40 05:50 06:00 Temperature Pulse Rate Respiratory 16 16 12 Rate Blood Pressure (mmHg) O2 Sat by Pulse Oximetry 05/06/17 05/06/17 05/06/17 06:10 06:20 06:30 Temperature Pulse Rate Respiratory 24 31 16 Rate Blood Pressure (mmHg) O2 Sat by Pulse Oximetry 05/06/17 05/06/17 05/06/17 06:40 06:50 07:00 Temperature Pulse Rate Respiratory 12 14 14 Rate Blood Pressure (mmHg) O2 Sat by Pulse Oximetry 05/06/17 05/06/17 05/06/17 07:10 07:18 07:20 Temperature 97.6 F Pulse Rate 75 Respiratory 14 18 Rate Blood Pressure 112/46 (mmHg) O2 Sat by Pulse 98 98 Oximetry - Intake and Output Intake and Output: Intake & Output 05/03/17 05/04/17 05/05/17 05/06/17 11:59 11:59 11:59 11:59 Intake Total 370 Output Total 0 Balance 370 Weight 188 lb 12.8 oz Intake: Oral 370 Output: Urine 0 Other: Estimated Void Large # Bowel Movements 0 # Voids 1 ADLs: Meal Record Start: 05/05/17 14: 36 Freq: DAILY@0900,1400,1800 Status: Active Created 05/05/17 14:36 System (Rec: 05/05/17 14:36 System [email or web address]) Document 05/05/17 18:00 [id number] (Rec: 05/05/17 20:32 [id number]) Intake and Output Start: 05/05/17 11: 22 Freq: Status: Active Created 05/05/17 11:22 System (Rec: 05/05/17 11:22 System [id number]) Intake and Output Start: 05/05/17 14: 36 Freq: DAILY@0600,1400,2200 Status: Active Created 05/05/17 14:36 System (Rec: 05/05/17 14:36 System [email or web address]) Document 05/05/17 21:55 [id number] (Rec: 05/05/17 21:56 [id number]) Document 05/06/17 05:48 [id number] (Rec: 05/06/17 05:49 [id number]) - Physical Exam General Physical Exam Comment: Warm and well perfused, in no distress. She has a headache. BP 118/80 standing - this did not decline after 5 mins General: No Cyanosis, No Anemia, No Jaundice, No Clubbing Lungs and Chest: Yes: Chest Expansion Full, Chest Expansion Symetrica, Percussion Note Resonant, Vessicular Breath Sounds. No: Crackles, Wheezes Heart Rate and Rhythm: Regular JVP: Not Elevated Additional Cardiovascular: Yes: Normal Heart Sounds, Heart Murmur - 2/6 aortic systolic murmur. No: Pedal Edema Abdominal Exam: Yes: Soft, Bowel Sounds Present. No: Distention, Abdominal Mass , Hepatomegaly, Abdominal Tenderness - Extremities Cranial Nerves II-XII Intact: Yes Limbs: Normal Power, Normal Tone - Neuro Orientation: A/O x3 Speech: Normal Results - Results Lab Results: Laboratory Results - last 24 hr 05/05/17 05/05/17 05/05/17 15:41 17:24 17:27 WBC RBC Hgb Hct MCV MCH MCHC RDW Plt Count MPV Neut % (Auto) Lymph % (Auto) Lamb % (Auto) Eos % (Auto) Baso % (Auto) Absolute Neuts (auto) Absolute Lymphs (auto) Absolute Monos (auto) Absolute Eos (auto) Absolute Basos (auto) Absolute Nucleated RBC Nucleated RBC % Sodium 131 L Potassium 4.6 Chloride 104 Carbon Dioxide 23 Anion Gap 4 BUN 33 H Creatinine 1.17 H Est GFR ( Amer) 60.5 Est GFR (Non-Af Amer) 47.0 BUN/Creatinine Ratio 28.2 H Glucose 119 H POC Glucose (mg/dL) 189 H Calcium 9.5 Troponin I 0.06 H* TSH 0.16 L Urine Color Urine Appearance Urine pH Ur Specific [place] Urine Protein Urine Ketones Urine Blood Urine Nitrate Urine Bilirubin Urine Urobilinogen Ur Leukocyte Esterase Urine Glucose 05/05/17 05/05/17 05/06/17 20:20 20:21 06:02 WBC RBC Hgb Hct MCV MCH MCHC RDW Plt Count MPV Neut % (Auto) Lymph % (Auto) Lamb % (Auto) Eos % (Auto) Baso % (Auto) Absolute Neuts (auto) Absolute Lymphs (auto) Absolute Monos (auto) Absolute Eos (auto) Absolute Basos (auto) Absolute Nucleated RBC Nucleated RBC % Sodium Potassium Chloride Carbon Dioxide Anion Gap BUN Creatinine Est GFR ( Amer) Est GFR (Non-Af Amer) BUN/Creatinine Ratio Glucose POC Glucose (mg/dL) 248 H 43 L Calcium Troponin I 0.06 H* TSH Urine Color Urine Appearance Urine pH Ur Specific [place] Urine Protein Urine Ketones Urine Blood Urine Nitrate Urine Bilirubin Urine Urobilinogen Ur Leukocyte Esterase Urine Glucose 05/06/17 05/06/17 05/06/17 06:18 06:25 07:30 WBC RBC Hgb Hct MCV MCH MCHC RDW Plt Count MPV Neut % (Auto) Lymph % (Auto) Lamb % (Auto) Eos % (Auto) Baso % (Auto) Absolute Neuts (auto) Absolute Lymphs (auto) Absolute Monos (auto) Absolute Eos (auto) Absolute Basos (auto) Absolute Nucleated RBC Nucleated RBC % Sodium Potassium Chloride Carbon Dioxide Anion Gap BUN Creatinine Est GFR ( Amer) Est GFR (Non-Af Amer) BUN/Creatinine Ratio Glucose POC Glucose (mg/dL) 72 L 131 H Calcium Troponin I TSH Urine Color Straw Urine Appearance Clear Urine pH 5.0 Ur Specific [place] 1.006 L Urine Protein Negative Urine Ketones Negative Urine Blood Negative Urine Nitrate Negative Urine Bilirubin Negative Urine Urobilinogen Negative Ur Leukocyte Esterase Negative Urine Glucose Negative 05/06/17 07:41 WBC 5.4 RBC 3.41 L Hgb 11.2 L Hct 33 L MCV 96 MCH 33 H MCHC 34 RDW 13 Plt Count 285 MPV 7 L Neut % (Auto) 61.6 Lymph % (Auto) 23.5 L Lamb % (Auto) 10.6 H Eos % (Auto) 3.9 Baso % (Auto) 0.4 Absolute Neuts (auto) 3.4 Absolute Lymphs (auto) 1.3 Absolute Monos (auto) 0.6 Absolute Eos (auto) 0.2 Absolute Basos (auto) 0 Absolute Nucleated RBC 0.01 Nucleated RBC % 0.1 Sodium Potassium Chloride Carbon Dioxide Anion Gap BUN Creatinine Est GFR ( Amer) Est GFR (Non-Af Amer) BUN/Creatinine Ratio Glucose POC Glucose (mg/dL) Calcium Troponin I TSH Urine Color Urine Appearance Urine pH Ur Specific [place] Urine Protein Urine Ketones Urine Blood Urine Nitrate Urine Bilirubin Urine Urobilinogen Ur Leukocyte Esterase Urine Glucose Radiology Results: Patient Name: FREDO PERALES Medical Record#: [id number] Ordering Physician: Ignacio Levine MD Acct.#: [id number] : 1955 Age: 62 Sex: F Location: [address] [place] [address] MEDICAL/TELEMETRY Exam Date: 05/05/17 162 ADM Status: ADM Mikal Order Information: MRI BRAIN W/O Accession Number: [id number] CPT: 98298 Indication: Nausea and dizziness this morning. Gait abnormality. Diabetic. Comparison: CT of the same date and November 15, 2014 MRI. Technique: [employer] 1.5 Belkis [id number] with GEM suite. MRI brain without contrast. Report: Diffusion series is negative for acute or subacute ischemia. Susceptibility series is negative for stigmata of hemosiderin deposition to indicate previous hemorrhage. Unremarkable cerebral sulci, ventricles, basal cisterns. Unchanged small burden of nonspecific T2 hyperintensities within the periventricular and subcortical white matter of the cerebral hemispheres compared with the 2015 exam. Negative for associated mass effect. Negative for intra or extra-axial fluid collection. Preserved major intracranial flow-voids. Unremarkable orbital contents. Unremarkable calvarium and skull base. Grossly clear paranasal sinuses and mastoid air spaces. Unremarkable scalp. IMPRESSION: 1. No evidence for acute or subacute ischemia. 2. Negative for mass effect. 3. Nonspecific cerebral white matter hyperintensities without change compared with the 2014 exam most likely representing chronic small vessel ischemic disease however the differential includes demyelinating disease and white matter signal abnormalities seen in association with migraine headaches and prior foci of inflammation. <Electronically signed by Phil Colbert MD in OV> 05/05/171710 Dictated By: Phil Colbert MD Dictated Date/Time: 05/05/171710 Transcribed Date/Time: 05/05/171705 Copy to: CC:Hector Krause MD; Ignacio Levine MD Imaging - [facility] Imaging - [facility] [address] [address] ph [phone]) ph [phone]) ph ([phone]) 1 of 1 Patient Name: FREDO PERALES Medical Record#: [id number] Ordering Physician: Ignacio Levine MD Acct.#: [id number] : 1955 Age: 62 Sex: F Location: [address] [place] [address]/TELEMETRY Exam Date: 05/05/17 145 ADM Status: ADM Mikal Order Information: MRA HEAD W/O Accession Number: [id number] CPT: 51195 Indication: Dizziness, gait abnormality. Diabetic. Comparison: MRI of the same date. Technique: [employer] 1.5 Belkis [id number] with GEM suite. MR angiography 3-D time- of-flight data was obtained with rotational display of the port [place] of [place] and posterior fossa arteries. Report: Negative for central intracranial aneurysm or vascular malformation. Unremarkable intracranial internal carotid arteries as well as the M1 and M2 segments of the middle cerebral arteries and the A1 and A2 segments of the anterior cerebral arteries. Small patent anterior communicating artery visualized. Unremarkable vertebral or and basilar arteries as well as the cerebellar artery origins. Patent posterior cerebral arteries are supplied primarily by the posterior circulation with normal variant hypoplastic posterior communicating arteries visualized. IMPRESSION: Negative MRA of the port [place] of [place]. <Electronically signed by Phil Colbert MD in OV> 05/05/171714 Dictated By: Phil Colbert MD Dictated Date/Time: 05/05/171714 Transcribed Date/Time: 05/05/171711 Copy to: CC:Hector Krause MD; Ignacio Levine MD Imaging - [facility] - [facility] [address] [address] [place], [place] [id number] [place] [address] ph [phone]) ph [phone]) ph ([phone]) 1 of 1 Patient Name: FREDO PERALES Medical Record#: [id number] Ordering Physician: Willem Jack MD Acct.#: [id number] : 1955 Age: 62 Sex: F Location: EMERGENCY DEPARTMENT Exam Date: 05/05/17 122 ADM Status: REG ER Order Information: CHEST AP PORTABLE Accession Number: [id number] CPT: 05116 HISTORY: Neurological changes COMPARISONS: February 28, 2013 VIEWS:1: Single frontal portable view of the chest at 12:30 PM FINDINGS: LINES AND TUBES: None. CARDIOMEDIASTINAL SILHOUETTE: The cardiomediastinal silhouette is normal for portable technique. PLEURA: The costophrenic angles are sharp. No pleural abnormalities are noted. LUNG PARENCHYMA: The lungs are clear. ABDOMEN: The upper abdomen is clear. There is no subphrenic gas. BONES AND SOFT TISSUES: No bone or soft tissue abnormalities are noted. IMPRESSION: NO ACTIVE CARDIOPULMONARY DISEASE. <Electronically signed by Jerzy Robbins MD in OV> 05/05/17 1259 Dictated By: Jerzy Robbins MD Dictated Date/Time: 05/05/17 1259 Transcribed Date/Time: 05/05/17 1258 Copy to: CC:Hector Krause MD; Willem Jack MD Imaging - [facility] Imaging [facility] [address] [place] [address] ph [phone]) ph [phone]) ph [phone]) Patient Name: FREDO PERALES Medical Record#: [id number] Ordering Physician: Willem Jack MD Acct.#: [id number] : 1955 Age: 62 Sex: F Location: EMERGENCY DEPARTMENT Exam Date: 05/05/171221 ADM Status: REG ER Order Information: CT BRAIN WO Accession Number: [id number] CPT: 88590 INDICATION: Code ng. COMPARISON: Correlation is made with a prior MRI of the brain from November. TECHNIQUE: Contiguous axial sections of the brain were obtained from the skull base to the vertex without contrast. FINDINGS: The ventricles, cisterns and sulci are within normal limits. There are small areas of decreased density in the subcortical and periventricular white matter suggestive of mild chronic small vessel ischemic changes. No other focal abnormality or mass effect is seen. There is no evidence for hemorrhage. No significant focal osseous abnormality is seen. The visualized portion of the paranasal sinuses and mastoid air cells appear clear. The results of this exam were called to the referring clinician at 1240 hours. IMPRESSION: 1. NO EVIDENCE FOR GROSS ACUTE INFARCT, MASS EFFECT OR HEMORRHAGE. 2. FINDINGS SUGGESTIVE OF MILD CHRONIC SMALL VESSEL ISCHEMIC CHANGES. <Electronically signed by Zeyad Keenan MD in OV> 05/05/17 1245 Dictated By: Zeyad Keenan MD Dictated Date/Time: 05/05/17 1245 Transcribed Date/Time: 05/05/17 1231 Copy to: CC:Hector Krause MD; Willem Jack MD Imaging - [facility] - [facility] [address] [place] [address] ph [phone]) ph [phone]) ph [phone]) EKG Report: EKG SR 82 IL 150 QTc 425 QRSD 96 QRS axis -19. Septal T wave changes, poor R wave progression septal leads. 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 This lasted 15 mins. She was not hypoglycemic. She has indeterminate troponin I levels. Differential diagnosis is wide - vasovagal episode, acute migraine, myocardial ischemia (lack of chest symptoms due to neuropathy), PE. I note that she has had no CVA as the MRI/MRA/CT scans of her brain were normal. She has a persistent headache today. She has had recently had more headaches and they have been many times per week. In addition, she has scintillating scotomas associated with some of them. She may also have insufficient mineralocorticoid replacement. I will add a Troponin I. I note she had a normal [place] lexiscan stress test 07/27/2015 - her EKG is likely normal, though there may be some subtle septal lead changes. Hypoglycemia (Acute) This occured early this morning. I will reduce her basal rate overnight Adrenal insufficiency (Tho's disease) (Chronic) I have doubled her hydrocortisone. Since her sodium was low on admission, I will start her on a small dose of fludrocortisone. 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 I will discharge her if this is normal. I will also check a d-dimer - if it is negative it will be reassuring. If it is positive, I will consider if we need another test to rule out PE. I discussed this with the patient - she agrees with the plan
[2017-05-06] MEDS: Aspirin EC Low Dose* 81 MG TAB.EC PO SCH (08:38)
[2017-05-06] MEDS: Atorvastatin* 20 MG TAB PO SCH (08:38)
[2017-05-06] MEDS: Lidocaine PATCH 5%* 1 PATCH TRANSDERM SCH (08:38)
[2017-05-06] MEDS: Cholecalciferol TAB* 1000 UNITS PO SCH (08:38)
[2017-05-06] MEDS: Citalopram TAB* 10 MG PO SCH (08:38)
[2017-05-06] MEDS: Mometasone/Formoter 200/5 MDI INH SCH ×2 (08:48→20:00)
[2017-05-06] MEDS: Aclidinium POWDER MDI(NF) INH SCH ×2 (08:49→20:02)
[2017-05-06] MEDS ORDERED: Hydrocortisone TAB* 10 MG PO SCH (09:00)
[2017-05-06] MEDS ORDERED: Escitalopram (NF) 10 MG TAB PO SCH (09:00)
[2017-05-06 10:11] LABS: Troponin I 0.06 ng/mL (<0.04)
[2017-05-06] MEDS ORDERED: Iodixanol* (CONTRAST) 320 MG/ML 100 ML SDV IV ONE (13:25)
[2017-05-06 13:40] LABS: EGFR African American 64.3 (>60)
--- NOTE | 2017-05-06 14:26 | RAD ---
INDICATION: Elevated d-dimer. Presyncope. COMPARISON: May 05, 2017 chest radiograph TECHNIQUE: Multidetector CT images were obtained from the lung apices to the upper abdomen with 81 mL Visipaque 320 IV contrast. Pulmonary angiogram protocol. Multiplanar reformation including with maximum intensity projection. REPORT: Minimal dependent atelectasis. No suspicious focal pulmonary lesion or alveolar consolidation concerning for pneumonia. Negative for pleural effusion or pneumothorax. Negative for thoracic lymphadenopathy. Upper normal heart size. Negative for pericardial effusion. Normal diameter thoracic aorta with mild atherosclerotic plaque. Negative for aortic dissection. No filling defects are identified from the main to the subsegmental pulmonary arteries to indicate presence of a pulmonary embolism. Unremarkable Limited images through the upper abdomen. Negative for suspicious thoracic osseous lesions. IMPRESSION: 1. No evidence for pulmonary embolism. 2. No acute intrathoracic disease evident.
[2017-05-06] MEDS: Omeprazole CAP* 20 MG PO SCH (14:55)
[2017-05-06] MEDS: Ropinirole TAB* 0.5 MG TAB PO SCH ×2 (14:56→20:32)
[2017-05-06] MEDS ORDERED: Hydrocortisone TAB* 5 MG PO SCH (15:00)
[2017-05-06] MEDS: rOPINIRole TAB* 1 MG PO SCH (20:32)
[2017-05-06] MEDS: Lidocaine Patch REMOVE* 1 NOTE MISC PATCH OFF SCH (20:33)
[2017-05-06] MEDS: Hydrocortisone TAB* 5 MG PO SCH (21:42)
[2017-05-07] MEDS: Levothyroxine TAB* 175 MCG TAB PO SCH (05:19)
[2017-05-07] MEDS: Heparin VIAL(*) 5000 UNITS/ML VIAL (FIVE THOUSAND) SUBCUT SCH ×2 (05:19→13:56)
[2017-05-07] MEDS: Mometasone/Formoter 200/5 MDI INH SCH ×2 (07:58→19:57)
[2017-05-07] MEDS: Aclidinium POWDER MDI(NF) INH SCH ×2 (07:58→19:57)
--- NOTE | 2017-05-07 08:27 | PN ---
Subjective - Subjective Reason for Note: Discharge Note History: Contingent discharge summary She has had no chest discomfort, nausea, vomiting, abdo pain, diarrhea, diaphoresis. Her D-Dimer was positive and her CTA chest was negative for PE. She is due for a NM stress test today. 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 COPD (chronic obstructive pulmonary disease) (Chronic) J44.9 GERD (gastroesophageal reflux disease) (Chronic) K21.9 Hypercholesteremia (Chronic) E78.[address] (Chronic) Z96.41 Type 1 diabetes mellitus with nephropathy (Chronic) E10.21 Type 1 diabetes, controlled, with neuropathy (Chronic) E10.40 Current Medications: Current Medications Acetaminophen (Tylenol Tab*) 650 mg PO Q4H PRN PRN Reason: FEVER/PAIN Aclidinium [place] (Tudorza Press Mdi(Nf)) 1 puff INH BID [facility] Last Admin: 05/07/17 07:58 Dose: Not Given Aspirin (Aspirin Ec Low Dose*) 81 mg PO DAILY [facility] Last Admin: 05/06/17 08:38 Dose: 81 mg Atorvastatin Calcium (Lipitor*) 20 mg PO DAILY [facility] Last Admin: 05/06/17 08:38 Dose: 20 mg Cholecalciferol (Vitamin D Tab*) 2,000 units PO DAILY [facility] Last Admin: 05/06/17 08:38 Dose: 2,000 units Citalopram Hydrobromide (Celexa Tab*) 30 mg PO DAILY [facility] PRN Reason: Protocol Last Admin: 05/06/17 08:38 Dose: 30 mg Fludrocortisone Acetate (Florinef Tab*) 0.1 mg PO DAILY [facility] Heparin Sodium (Porcine) (Heparin Vial(*)) 5,000 units SUBCUT Q8HR [facility] Last Admin: 05/07/17 05:19 Dose: 5,000 units Hydrocortisone (Cortef Tab*) 15 mg PO 1500 [facility] Last Admin: 05/06/17 14:56 Dose: 15 mg Hydrocortisone (Cortef Tab*) 20 mg PO QAM [facility] Last Admin: 05/06/17 08:38 Dose: 20 mg Hydrocortisone (Cortef Tab*) 5 mg PO BEDTIME [facility] Last Admin: 05/06/17 21:42 Dose: 5 mg Levalbuterol HCl (Xopenex Hfa Inhaler*) 1 puff INH Q6H PRN PRN Reason: SHORTNESS OF BREATH Levothyroxine Sodium (Synthroid Tab*) 175 mcg PO DAILY@0600 [facility] Last Admin: 05/07/17 05:19 Dose: 175 mcg Lidocaine (Lidoderm 5% Patch*) 1 patch TRANSDERM DAILY [facility] Last Admin: 05/06/17 08:38 Dose: Not Given Lorazepam (Ativan Tab(*)) 1 mg PO BEDTIME PRN PRN Reason: SLEEP Mometasone Furoate/Formoterol Fumar (Dulera 200/5 Mdi*) 2 puff INH BID [facility] PRN Reason: Protocol Last Admin: 05/07/17 07:58 Dose: Not Given Omeprazole (Prilosec Cap*) 40 mg PO 1500 [facility] Last Admin: 05/06/17 14:55 Dose: 40 mg Pharmacy Profile Note (Lidocaine Patch Remove*) 1 note PATCH OFF 2100 [facility] Last Admin: 05/06/17 20:33 Dose: Not Given Ropinirole HCl (Requip Tab*) 0.5 mg PO BEDTIME [facility] Last Admin: 05/06/17 20:32 Dose: 0.5 mg Ropinirole HCl (Requip Tab*) 1 mg PO 2000 [facility] Last Admin: 05/06/17 20:32 Dose: 1 mg Ropinirole HCl (Requip Tab*) 0.5 mg PO 1500 [facility] Last Admin: 05/06/17 14:56 Dose: 0.5 mg Home Medications: Home Medications Medication Instructions Recorded Confirmed Type Hydrocortisone 2.5 mg PO BEDTIME 11/13/14 05/05/17 History Hydrocortisone [Cortef] 7.5 mg PO 1500 11/10/16 05/05/17 History Hydrocortisone [Cortef] 10 mg PO QAM 11/10/16 05/05/17 History Aclidinium [place] [Tudorza 1 puff INH BID 05/05/17 05/05/17 History Pressair] Aspirin EC Low Dose* [Ecotrin EC 81 mg PO DAILY 05/05/17 05/05/17 History Low Dose 81 MG*] Cholecalciferol TAB* [Vitamin D 2,000 units PO DAILY 05/05/17 05/05/17 History TAB*] Cranberry (Vaccinium Macrocarp 4,200 mg PO BID 05/05/17 05/05/17 History [Cranberry] Escitalopram (NF) [Lexapro 10 mg 10 mg PO DAILY 05/05/17 05/05/17 History (NF)] Escitalopram (NF) [Lexapro 5 mg 5 mg PO DAILY 05/05/17 05/05/17 History (NF)] Fluticas/Salmet 115/21 HFA(NF) 2 puff INH BID 05/05/17 05/05/17 History [Advair HFA 115/21 (NF)] Furosemide TAB* [Lasix TAB*] 20 mg PO DAILY PRN 05/05/17 05/05/17 History Glucagon (Rdna) [Glucagon 1 mg INJ ONCE PRN 05/05/17 05/05/17 History Emergency Kit] Insulin Lispro [Humalog Kwikpen] 0 - 30 unit SUBCUT . DIRECTED 05/05/17 History MDD 30 units Insulin Lispro [Humalog Kwikpen] 0 - 80 unit SUBCUT . DIRECTED 05/05/17 History MDD 80 units LORazepam TAB(*) [Ativan 1 MG TAB 1 mg PO BEDTIME PRN 05/05/17 05/05/17 History (*)] Levalbuterol HFA INHALER* [Xopenex 1 puff INH Q6H PRN 05/05/17 05/05/17 History Hfa Inhaler*] Levothyroxine TAB* [Synthroid TAB*] 175 mcg PO DAILY 05/05/17 05/05/17 History Lidocaine PATCH 5%* [Lidoderm 5% 1 patch TRANSDERM DAILY 05/05/17 05/05/17 History Patch*] Losartan TAB* [Cozaar TAB*] 50 mg PO DAILY 05/05/17 05/05/17 History Melatonin 1 mg PO BEDTIME PRN 05/05/17 05/05/17 History Nitroglycerin TAB 0.4 MG* 0.4 mg SL Q5M PRN 05/05/17 05/05/17 History Omeprazole CAP* [Prilosec CAP* 20 40 mg PO 1500 05/05/17 05/05/17 History MG] Ropinirole TAB* [Requip TAB*] 0.5 mg PO BEDTIME 05/05/17 05/05/17 History Ropinirole TAB* [Requip TAB*] 1 mg PO 2000 05/05/17 05/05/17 History Simvastatin (NF) [Zocor (NF)] 40 mg PO DAILY 05/05/17 05/05/17 History rOPINIRole TAB* [Requip TAB*] 0.5 mg PO 1500 05/05/17 05/05/17 History Allergies: Allergies Allergy/AdvReac Type Severity Reaction Status Date / Time Ofloxacin Allergy Severe Swelling Verified 11/10/16 09:30 Ramipril Allergy Mild Coughing Verified 11/10/16 09:30 Objective - Vital Signs Vital Signs: Vital Signs 05/06/17 05/06/17 05/06/17 08:30 08:40 08:50 Temperature Pulse Rate Respiratory 10 45 36 Rate Blood Pressure (mmHg) O2 Sat by Pulse Oximetry 05/06/17 05/06/17 05/06/17 09:00 09:10 09:20 Temperature Pulse Rate Respiratory 15 14 17 Rate Blood Pressure (mmHg) O2 Sat by Pulse Oximetry 05/06/17 05/06/17 05/06/17 09:30 09:40 09:50 Temperature Pulse Rate Respiratory 17 13 9 Rate Blood Pressure (mmHg) O2 Sat by Pulse Oximetry 05/06/17 05/06/17 05/06/17 10:00 10:10 10:20 Temperature Pulse Rate Respiratory 17 13 11 Rate Blood Pressure (mmHg) O2 Sat by Pulse Oximetry 05/06/17 05/06/17 05/06/17 10:30 10:40 10:50 Temperature Pulse Rate Respiratory 15 18 13 Rate Blood Pressure (mmHg) O2 Sat by Pulse Oximetry 05/06/17 05/06/17 05/06/17 11:00 11:08 11:10 Temperature 98.0 F Pulse Rate 79 Respiratory 88 16 23 Rate Blood Pressure 134/54 (mmHg) O2 Sat by Pulse 100 Oximetry 05/06/17 05/06/17 05/06/17 11:20 11:30 11:40 Temperature Pulse Rate Respiratory 35 17 20 Rate Blood Pressure (mmHg) O2 Sat by Pulse Oximetry 05/06/17 05/06/17 05/06/17 11:50 12:00 12:10 Temperature Pulse Rate Respiratory 53 16 13 Rate Blood Pressure (mmHg) O2 Sat by Pulse Oximetry 05/06/17 05/06/17 05/06/17 12:20 12:30 12:40 Temperature Pulse Rate Respiratory 20 20 17 Rate Blood Pressure (mmHg) O2 Sat by Pulse Oximetry 05/06/17 05/06/17 05/06/17 12:50 13:00 13:10 Temperature Pulse Rate Respiratory 16 15 22 Rate Blood Pressure (mmHg) O2 Sat by Pulse Oximetry 05/06/17 05/06/17 05/06/17 13:20 13:30 14:04 Temperature Pulse Rate Respiratory 12 43 30 Rate Blood Pressure (mmHg) O2 Sat by Pulse Oximetry 05/06/17 05/06/17 05/06/17 14:10 14:20 14:30 Temperature Pulse Rate Respiratory 21 21 9 Rate Blood Pressure (mmHg) O2 Sat by Pulse Oximetry 05/06/17 05/06/17 05/06/17 14:40 14:50 15:00 Temperature Pulse Rate Respiratory 18 26 16 Rate Blood Pressure (mmHg) O2 Sat by Pulse Oximetry 05/06/17 05/06/17 05/06/17 15:10 15:20 15:30 Temperature Pulse Rate Respiratory 24 15 15 Rate Blood Pressure (mmHg) O2 Sat by Pulse Oximetry 05/06/17 05/06/17 05/06/17 15:50 15:52 16:00 Temperature 98.3 F Pulse Rate 79 Respiratory 17 16 16 Rate Blood Pressure 136/58 (mmHg) O2 Sat by Pulse 97 Oximetry 05/06/17 05/06/17 05/06/17 16:20 16:40 16:50 Temperature Pulse Rate Respiratory 13 16 10 Rate Blood Pressure (mmHg) O2 Sat by Pulse Oximetry 05/06/17 05/06/17 05/06/17 17:00 17:10 17:20 Temperature Pulse Rate Respiratory 23 13 15 Rate Blood Pressure (mmHg) O2 Sat by Pulse Oximetry 05/06/17 05/06/17 05/06/17 17:30 17:40 17:50 Temperature Pulse Rate Respiratory 22 16 14 Rate Blood Pressure (mmHg) O2 Sat by Pulse Oximetry 05/06/17 05/06/17 05/06/17 18:00 18:10 18:20 Temperature Pulse Rate Respiratory 15 17 14 Rate Blood Pressure (mmHg) O2 Sat by Pulse Oximetry 05/06/17 05/06/17 05/06/17 18:30 18:40 18:50 Temperature Pulse Rate Respiratory 49 16 8 Rate Blood Pressure (mmHg) O2 Sat by Pulse Oximetry 05/06/17 05/06/17 05/06/17 19:00 19:10 19:20 Temperature Pulse Rate Respiratory 17 16 16 Rate Blood Pressure (mmHg) O2 Sat by Pulse Oximetry 05/06/17 05/06/17 05/06/17 19:30 19:40 20:00 Temperature 98.7 F Pulse Rate 78 Respiratory 14 16 Rate Blood Pressure 135/57 (mmHg) O2 Sat by Pulse 98 98 Oximetry 05/06/17 05/07/17 05/07/17 23:20 03:43 07:44 Temperature 98.2 F 98.1 F 98.6 F Pulse Rate 75 74 70 Respiratory 16 16 16 Rate Blood Pressure 128/54 133/58 133/62 (mmHg) O2 Sat by Pulse 97 98 99 Oximetry 05/07/17 07:45 Temperature Pulse Rate Respiratory Rate Blood Pressure (mmHg) O2 Sat by Pulse 98 Oximetry - Intake and Output Intake and Output: Intake & Output 05/04/17 05/05/17 05/06/17 05/07/17 11:59 11:59 11:59 11:59 Intake Total 370 1560 Output Total 0 910 Balance 370 650 Weight 188 lb 12.8 oz 188 lb Intake: Oral 370 1560 Output: Urine 0 910 Other: Estimated Void Large Large # Bowel Movements 0 0 # Voids 1 1 ADLs: Meal Record Start: 05/05/17 14: 36 Freq: DAILY@0900,1400,1800 Status: Active Created 05/05/17 14:36 System (Rec: 05/05/17 14:36 System [id number]) Document 05/05/17 18:00 [id number] (Rec: 05/05/17 20:32 [id number]) Document 05/06/17 08:52 [id number] (Rec: 05/06/17 08:52 [id number] TELE-C01) Document 05/06/17 13:20 [id number] (Rec: 05/06/17 13:21 [id number] TELE-C01) Document 05/06/17 18:00 [id number] (Rec: 05/06/17 21:06 [id number]) Intake and Output Start: 05/05/17 11: 22 Freq: Status: Active Created 05/05/17 11:22 System (Rec: 05/05/17 11:22 System [id number]) Intake and Output Start: 05/05/17 14: 36 Freq: DAILY@0600,1400,2200 Status: Active Created 05/05/17 14:36 System (Rec: 05/05/17 14:36 System [email or web address]) Document 05/05/17 21:55 [id number] (Rec: 05/05/17 21:56 [id number] TELE-C07) Document 05/06/17 05:48 [id number] (Rec: 05/06/17 05:49 [id number] TELE-C07) Document 05/06/17 13:20 [id number] (Rec: 05/06/17 13:21 [id number] TELE-C01) Document 05/06/17 22:00 [id number] (Rec: 05/06/17 22:33 [id number] TELE-C05) Document 05/07/17 06:00 [id number] (Rec: 05/07/17 06:47 [id number]) - Physical Exam General Physical Exam Comment: Warm and well perfused. General: No Cyanosis, No Anemia, No Jaundice, No Clubbing Skin: Normal: Rash Lungs and Chest: Yes: Chest Expansion Full, Chest Expansion Symetrica, Percussion Note Resonant, Vessicular Breath Sounds. No: Crackles, Wheezes Heart Rate and Rhythm: Regular JVP: Not Elevated Additional Cardiovascular: Yes: Normal Heart Sounds. No: Heart Murmur, Pedal Edema Abdominal Exam: Yes: Soft, Bowel Sounds Present. No: Distention, Abdominal Tenderness - Extremities Cranial Nerves II-XII Intact: Yes Limbs: Normal Power, Normal Tone - Neuro Orientation: A/O x3 Psychiatric: Normal Speech: Normal Results - Results Lab Results: Laboratory Results - last 24 hr 05/06/17 05/06/17 05/06/17 07:41 10:16 11:48 D-Dimer, Quantitative 552 H BUN 29 H Creatinine 1.11 H Est GFR ( Amer) 64.3 Est GFR (Non-Af Amer) 50.0 POC Glucose (mg/dL) 158 H Troponin I 0.06 H* 05/06/17 05/06/17 16:48 20:35 D-Dimer, Quantitative BUN Creatinine Est GFR ( Amer) Est GFR (Non-Af Amer) POC Glucose (mg/dL) 185 H 233 H Troponin I Assessment - Problem List Assessment: Patient Problems Diarrhea (Acute) Elevated troponin I level (Acute) Hypoglycemia (Acute) Migraine (Acute) Nausea (Acute) Near syncope (Acute) Adrenal insufficiency (Frio's disease) (Chronic) COPD (chronic obstructive pulmonary disease) (Chronic) GERD (gastroesophageal reflux disease) (Chronic) Hypercholesteremia (Chronic) Insulin pump in place (Chronic) 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 She will have cardiac risk stratification with a NM stress test today. If all is well, I will discharge her. Cardiology will consult if it is positive. 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 Though it may also be a migraine headache with some autonomic components. 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 I will work on prophylaxis as an outpatient. Her MRI/MRA brain were normal Adrenal insufficiency (Frio's disease) (Chronic) I will bring down her hydrocortisone to usual dose and maintain fludrocortisone as an outpatient COPD (chronic obstructive pulmonary disease) (Chronic) secondary diagnosis GERD (gastroesophageal reflux disease) (Chronic) secondary diagnosis Hypercholesteremia (Chronic) secondary diagnosis Insulin pump in place (Chronic) I have cut down her overnight basal rate. I discussed the above with the patient and she agrees with the plan. I will follow up with her as an outpatient in 4 - 5 days if she is cleared for discharge.
[2017-05-07] MEDS ORDERED: Hydrocortisone TAB* 5 MG PO SCH ×3 (09:00→18:00)
[2017-05-07] MEDS ORDERED: Fludrocortisone Acetate TAB* 0.1 MG PO SCH (09:00)
[2017-05-07] MEDS: Citalopram TAB* 10 MG PO SCH (09:36)
[2017-05-07] MEDS: Aspirin EC Low Dose* 81 MG TAB.EC PO SCH (09:37)
[2017-05-07] MEDS: Atorvastatin* 20 MG TAB PO SCH (09:38)
[2017-05-07] MEDS: Cholecalciferol TAB* 1000 UNITS PO SCH (09:38)
[2017-05-07] MEDS: Lidocaine PATCH 5%* 1 PATCH TRANSDERM SCH (09:39)
[2017-05-07] MEDS ORDERED: Regadenoson* 0.4 MG/5 ML SYRINGE ONE (11:29)
--- NOTE | 2017-05-07 14:33 | RAD ---
INDICATION: Elevated troponin. COMPARISON: Correlation is made with a prior myocardial perfusion study from December 18, 2006. Technique: A single day myocardial perfusion stress study was performed. Initially the resting study was performed. The patient was given an intravenous injection of 10.8 mCi of technetium 99m tetrofosmin and and the heart was imaged in multiple projections. The patient returned later in the day and under the direction of Dr. Sanchez, the patient was given intervenous injection of Lexiscan. Subsequently the patient was given intravenous injection of 25.0 mCi of technetium 99m tetrofosmin and the heart was imaged in multiple projections. Images were reconstructed in the axial, sagittal and coronal planes and in a 3-D format. FINDINGS: There appears to be normal wall motion and myocardial thickening. The left ventricular ejection fraction was calculated to be 65%. Review of the images demonstrates normal distribution of radiopharmaceutical without evidence for focal abnormality. The transient ischemic dilatation ratio is elevated at 1.29 suggest the possibility of multivessel coronary disease. The results of this exam were discussed with the referring clinicians nurse. IMPRESSION: ELEVATION OF THE TID RATIO SUGGESTING THE POSSIBILITY OF MULTIVESSEL CORONARY ARTERY DISEASE.
[2017-05-07] MEDS: Ropinirole TAB* 0.5 MG TAB PO SCH (15:33)
[2017-05-07] MEDS: Omeprazole CAP* 20 MG PO SCH (15:33)
[2017-05-07 15:52] VITALS: BP 133/56
== END 2017-05-07 17:45 | disposition home or self-care (01) ==
LOC: ED 11:17 → MEDTELE 14:11
PROVIDERS: ADMIT Hospitalist; ATTEND Internal Medicine
DX: R55 Syncope and collapse (principal); E10.40 Type 1 diabetes mellitus with diabetic neuropathy, unspecified; E10.319 Type 1 diabetes mellitus with unspecified diabetic retinopathy without macular edema; Z79.4 Long term (current) use of insulin; Z96.41 Presence of insulin pump (external) (internal); E27.1 Primary adrenocortical insufficiency; I10 Essential (primary) hypertension; R42 Dizziness and giddiness; G25.81 Restless legs syndrome; K21.9 Gastro-esophageal reflux disease without esophagitis; F41.9 Anxiety disorder, unspecified; R06.00 Dyspnea, unspecified; Z79.899 Other long term (current) drug therapy; Z88.8 Allergy status to other drugs, medicaments and biological substances; J44.9 Chronic obstructive pulmonary disease, unspecified; F17.210 Nicotine dependence, cigarettes, uncomplicated
CPT/HCPCS: 36415; 70450; 70544; 70551; 71010; 71275; 78452; 80048; 80053; 80061; 81003; 82565; 83605; 84443; 84484; 84520; 85025; 85379; 85610; 85730; 86803; 86850; 86900; 86901; 93005; 93017; 94640; 96360; 96372; 99291; A9270-GY; A9502; G0378; J1644; J2785; Q9967

== ENCOUNTER 2017-12-30 07:22 | Inpatient (IN) | payer BC ==
[2017-12-30] MEDS ORDERED: Magnesium Hydroxide LIQ* 30 ML UDC PO PRN (13:18)
[2017-12-30] MEDS ORDERED: Senna TAB PO PRN (13:18)
--- OUTSIDE RECORDS SUMMARY | 2017-12-30 13:22 | XMS REPORT ---
:1955 External Reference #:[id number] Author Organization [facility] Address [address] [address] Phone [phone] Care Team Providers Name Role Phone Hector Krause MD Primary Care Physician Unavailable Payers Type Date Identification Numbers Payment Provider Subscriber Health Maintenance Policy Number: [place] [facility] Justice Pre[facility] (O) [id number] PayID: [id number] [address] [address] CONNIE Shelton [address] [employer] Expires: 12/09/2017 Policy Number: [place] [facility] Davidson Cordero Diaz [id number] Group Number: [id number] [address] [id number] PayID: [id number] CONN[place] Shelton [address] Problems Date Description Provider Status Onset: 04/26/2015 Diabetic polyneuropathy Lanie Martinez M.D. Active Onset: 04/26/2015 Common peroneal neuropathy Lanie Martinez M.D. Active Onset: 04/26/2015 Restless legs Lanie Martinez M.D. Active Onset: 01/02/2016 Carpal tunnel syndrome Lanie Martinez M.D. Active Onset: 05/08/2017 Malaise and fatigue Caitlin Cool DNP, RN, MIKIE-RAMEZ Active Onset: 05/08/2017 Hypoxemia Caitlin Cool DNP, RN, MIKIE-RAMEZ Active Onset: 05/08/2017 Organic sleep apnea Caitlin Cool DNP, RN, SKIDDER OPERATOR-BC Active Family History Date Family Member(s) Problem(s) Comments Father Emphysema Mother Thyroid Disease s/p thyroidectomy Social History Type Date Description Comments Marital Status Lives With Alone Occupation Retired Cigarette Use Former Cigarette Smoker ETOH Use consumes 2-3 beers per week Smoking Patient is a former smoker smoked on and off from age 18yrs to 45yrs, 1PPD or less Recreational Drug Use Denies Drug Use Daily Caffeine Consumes on average 3 cups of regular coffee per day Exercise Type/Frequency Exercises regularly Allergies, Adverse Reactions, Alerts Date Description Reaction Status Severity Comments 02/21/2014 Ramipril Cough active 01/02/2016 Ofloxacin active 11/08/2007 NKDA inactive Medications Medication Date Status Form Strength Qnty SIG Indications Ordering Provider Hydrocortisone 04/26 Active Tablets 5mg 90tab take 2 . /2014 s tablets Stackman, every M.D. morning, 1 tablet every noon and half tab qhs Ketostix 04/26 Active Strips prn Lanie . Ramon Martinez Furosemide 04/26 Active Tablets 20mg 1 by Lanie Traci mouth Stackman, every M.D. morning prn Losartan 04/26 Active Tablets 50mg 30tab 1 by Lanie Traci s mouth Stackman, every day M.D. Afo 04/26 Active 2unit correct G57.90 . s current narendra Martinez M.D. for new Tudorza Pressair 08/23 Active Aerosol 400mcg/Ac 60uni 1 puff Traci t ts bid Ramon Martinez Ropinirole HCL 08/24 Active Tablets 0.25mg 360ta one tab bs by mouth Ramon Goyal at 15:00, two tabs by mouth at 20:00 and one tab by mouth at 22:00 Insulin 11/08 Active Misc 1ML/28G 100un use as Phil Antelmo. Syringe/1ML/28G /2007 its directed Ramon Srinivasan X /" Lancets 11/08 Active Misc 100un microlet Phil Iglesias /2008 its bid aRmon Srinivasan Accu-Chek Katiana 11/08 Active 100un use qd or Phil Iglesias Test Strips /2007 its as Ramon Srinivasan directed DxIDDM Aspirin Active Tablets 81mg 1 PO Unknown /0000 twice a day Advair HFA Active Aerosol 115-21mcg 3unit 2 puff Unknown /0000 /Act s bid Levoxyl Active Tablets 175mcg 1 by Unknown /0000 mouth every day Xopenex Active 45mcg 2 puffs Unknown /0000 q4hprn Vitamin D3 Super Active Tablets 2000Unit daily Unknown Strength /0000 Glucagon Active Kit 1mg 2unit use as Unknown Emergency /0000 s directed Humalog Active Solution 100Unit/M sliding Unknown /0000 L scale in insulin pump Lexapro Active Tablets 5mg 1 by Unknown /0000 mouth every day Fludrocortisone Active Tablets 0.1mg 1 by Unknown Acetate /0000 mouth every day Temazepam Active Capsules 15mg 1 tablet Unknown /0000 at bedtime mdd 1 Metoprolol Active Tablets 25mg 1 by Unknown Tartrate /0000 mouth twice a day Multivitamin Active Tablets 1 by Unknown Adult /0000 mouth every day Vitamin C Active daily Unknown /0000 Zinc Active daily Unknown /0000 Mirtazapine Active Tablets 15mg one tab Unknown /0000 at hs Miralax Active Powder 3350NF 17 gm Unknown /0000 every day mixed w/ 8 oz water/jui ce prn Hydrocodone Active Tablets 10-325mg prn Unknown Bitartrate/Aceta /0000 minophen Lorazepam 04/26 Hx Tablets 1mg 40tab 1 by Lanie Daniel /2014 s mouth a Michelle, - day as M.DTraci 10/12 Melatonin 04/26 Hx Capsules 1mg 90cap 1 tab qhs Lanie Daniel /2014 s prn Michelle - Win.D. 10/12 Cranberry 04/26 Hx Tablets 400mg 120ta 1 by Lanie Daniel /2014 bs mouth one Michelle, - time a MRaeann Lipitor 06/15 Hx Tablets 10mg 30tab 1 po qhs Phil Iglesias /2007 s please Ramon Srinivasan - ask 08/23 to call for an appointme nt,. Levoxyl 11/11 Hx Tablets 150mcg 90tab 1 po qd Phil E. /2007 james Srinivasan M.D. - 02/21 Lipitor Hx Tablets 10mg 30tab 1 po qhs Phil E. /0000 james Srinivasan M.D. - 06/15 Levoxyl Hx Tablets 125mcg 90tab 1 po qd Phil E. /0000 james Srinivasan M.D. - 11/11 Hyzaar Hx Tablets 50-12.5 90tab 1 po qd Phil E. /0000 james Srinivasan M.D. - 02/21 Prandin Hx Tablets 0.5mg 180ta 1 po tid Phil E. / reno Srinivasan M.D. - 08/23 Caltrate With D Hx 600mg. 1 PO qd Unknown /0000 - 02/09 Multi-Vitamin Hx Tablets 1 PO qd Unknown / - 02/22 Humulin N 00 Hx Suspension 100Unit/M 2unit as Phil E. /0000 L james Srinivasan M.D. - 07/12 Humulin R 00 Hx U-100 2unit 6 am 4 Phil E. / s units, Sheeba Srinivasan M.D. - pm 4-6 07/12 units, 10pm up to 4 units Vitamin D Hx Capsules 2000Unit 1 po qd Unknown /0000 Amlodipine Hx Tablets 2.5mg 30tab 1 po qd Unknown Besylate /0000 s - 07/12 Simvastatin 00 Hx Tablets 20mg 90tab 1 po qd Hector Krause, / s MD - 10/12 Hyzaar Hx Tablets 100-12.5m 1 by Unknown / g mouth - every day 07/12 Ketorolac Hx Solution 0.5% 1 drop r Unknown Tromethamine /0000 and l eye - . twice a Nitroglycerin Hx Tablets 0.4mg 50tab 1 sl Unknown / Sub s q5mins x3 - as needed 10/12 for chest /2018 pain Omeprazole Hx Capsules 40mg 1 by /0000 DR mouth - every day 10/12 Depomedrol 40MG Active Injection Armando F /0000 MD Crystal Medications Administered in Office Medication Date Status Form Strength Qnty SIG Indications Ordering Provider Inj, Administered Injection Antoine S. Regadenoson, 015 Sanchez, DO 0.1 MG FACC Inj, Administered Injection Kimberly Bundy, Regadenoson, 015 PA 0.1 MG Technetium TC Administered Injection Antoine S. 99M 015 Sanchez, DO Tetrofosmin, FACC Per Unit Dose Up To 40 Millicuries Technetium TC Administered Injection Kimberly Bundy, 99M 015 PA Tetrofosmin, Per Unit Dose Up To 40 Millicuries Immunizations CPT Code Status Date Vaccine Lot # [id number] Given 07/21/2016 Influenza Virus 3Yrs & Over 31279 Given 06/15/2008 Pneumonia Vaccine [id number] Given 11/15/2003 Td (History By Patient) Vital Signs Date Vital Result Comment 12/10/2017 Height 67.5 inches 5'7.50" Weight 193.00 lb per pt Heart Rate 70 /min reg Respiratory Rate 16 /min Pain Level 6 left knee and down BMI (Body Mass Index) 29.8 kg/m2 05/08/2017 Height 67.5 inches 5'7.50" Weight 185.00 lb Heart Rate 80 /min BP Systolic Sitting 126 mmHg BP Diastolic Sitting 58 mmHg Respiratory Rate 14 /min O2 % BldC Oximetry 98 % room air BMI (Body Mass Index) 28.5 kg/m2 Neck Circumference in inches 15.5 03/31/2017 Height 67.5 inches 5'7.50" Weight 186.38 lb Heart Rate 80 /min BP Systolic Sitting 124 mmHg BP Diastolic Sitting 68 mmHg Respiratory Rate 14 /min BMI (Body Mass Index) 28.8 kg/m2 08/12/2016 Height 67.5 inches 5'7.50" Weight 187.00 lb Heart Rate 88 /min BP Systolic Sitting 126 mmHg BP Diastolic Sitting 64 mmHg BMI (Body Mass Index) 28.9 kg/m2 01/02/2016 Height 67.5 inches 5'7.50" Weight 180.00 lb Heart Rate 72 /min BP Systolic Sitting 124 mmHg BP Diastolic Sitting 68 mmHg Respiratory Rate 14 /min BMI (Body Mass Index) 27.8 kg/m2 04/26/2015 Height 67.5 inches 5'7.50" Weight 176.00 lb Heart Rate 80 /min BP Systolic Sitting 130 mmHg BP Diastolic Sitting 90 mmHg Respiratory Rate 14 /min BMI (Body Mass Index) 27.2 kg/m2 08/10/2014 Height 67.5 inches 5'7.50" Weight 179.00 lb Heart Rate 84 /min BP Systolic Sitting 138 mmHg BP Diastolic Sitting 60 mmHg Respiratory Rate 16 /min BMI (Body Mass Index) 27.6 kg/m2 02/21/2014 Height 67.5 inches 5'7.50" Weight 182.00 lb Heart Rate 88 /min BP Systolic Sitting 136 mmHg BP Diastolic Sitting 60 mmHg Respiratory Rate 16 /min BMI (Body Mass Index) 28.1 kg/m2 08/23/2013 Heart Rate 83 /min BP Systolic Sitting 138 mmHg BP Diastolic Sitting 64 mmHg Respiratory Rate 18 /min 02/22/2013 Heart Rate 68 /min BP Systolic Sitting 138 mmHg BP Diastolic Sitting 58 mmHg Respiratory Rate 16 /min 12/18/2008 Height 67.5 inches 5'7.50" Weight 179.00 lb Heart Rate 100 /min BP Systolic Sitting 158 mmHg BP Diastolic Sitting 84 mmHg BMI (Body Mass Index) 27.6 kg/m2 06/15/2008 Height 67.5 inches 5'7.50" Weight 178.00 lb Heart Rate 80 /min BP Systolic Sitting 130 mmHg BP Diastolic Sitting 60 mmHg BMI (Body Mass Index) 27.5 kg/m2 11/08/2007 Height 67.5 inches 5'7.50" Weight 176.00 lb Heart Rate 72 /min BP Systolic Sitting 146 mmHg BP Diastolic Sitting 74 mmHg BMI (Body Mass Index) 27.2 kg/m2 04/28/2007 Height 67.5 inches 5'7.50" Weight 174.00 lb Heart Rate 84 /min BP Systolic Sitting 138 mmHg BP Diastolic Sitting 72 mmHg BMI (Body Mass Index) 26.8 kg/m2 Results Test Date Test Result H/L Range Note Laboratory test finding 02/21/2014 Vitamin B12 580 pg/mL 180-914 1 Basic Metabolic Panel 12/18/2008 Sodium 133 mmol/L Low 135-145 2 Potassium 5.3 mmol/L High 3.5-5.0 2 Chloride 99 mmol/L Low 101-111 2 Co2 (Carbon Dioxide) 28.0 mmol/L 22-32 2 Anion Gap 6.0 mmol/L 2-11 2, 3 Glucose 308 mg/dL High 70-100 2, 4 BUN 16 mg/dL 6-24 2 Creatinine 0.90 mg/dL 0.50-1.40 2 One Over Creatinine 1.10 2 BUN/Creatinine Ratio 17.8 8-20 2 Calcium 10.3 mg/dL High 8.1-9.9 2, 5 Laboratory test finding 12/18/2008 Hemoglobin A1c 7.9 % High <6.0 2, 6 CBC With Electronic Diff 06/19/2008 White Blood Count 4.3 CUMM Low 4.8- 10.8 2 Red Cell Count 3.73 CUMM Low 4.2-5.4 2 Hemoglobin 12.6 g/dL 12.0-16.0 2 Hematocrit 35 % 35-47 2 Mean Corpuscular Volume 94 um3 79-97 2 Mean Corpuscular Hemoglob 34 pg High 27-31 2 Mean Corpuscular HGB Cone 36 g/dL 32-36 2 Redcell Distribution WDTH 13 % 10.5-15 2 Platelet Count 299 CUMM 150-450 2 Mean Platelet Volume 7.6 um3 7.4-10.4 2 Gran % 62.7 % 38-83 2 Lymph % 24.5 % 20-45 2 Mononuclear % 7.8 % 1-9 2 Eosinophil % 4.7 % 0-6 2 Basophil % 0.3 % 0-2 2 Abs Lymphs 1.1 1.0-4.8 2 Abs Mononuclear 0.3 0-0.8 2 Absolute Neutrophil Count 2.7 1.5-7.7 2 Abs Eosinophils 0.2 0-0.6 2 Abs Basophils 0 0-0.2 2 Comp Metabolic Panel 06/19/2008 Sodium 137 mmol/L 135-145 2 Potassium 4.6 mmol/L 3.5-5.0 2 Chloride 104 mmol/L 101-111 2 Co2 (Carbon Dioxide) 28.0 mmol/L 22-32 2 Anion Gap 5.0 mmol/L 2-11 2, 7 Glucose 301 mg/dL High 70-100 2, 8 BUN 23 mg/dL 6-24 2 Creatinine 1.0 mg/dL 0.5-1.4 2 One Over Creatinine 1.00 2 BUN/Creatinine Ratio 23.0 High 8-20 2 Calcium 10.0 mg/dL High 8.1-9.9 2, 9 Total Protein 6.9 GM/DL 6.2-8.1 2 Albumin 4.0 GM/DL 3.6-5.4 2 Globulin 2.9 GM/DL 2-4 2 Albumin/Globulin Ratio 1.4 1-3 2 Bilirubin Total 1.1 mg/dL 0.4-1.5 2 Alkaline Phosphatase 63 U/L 30-110 2 Alt (SGPT) 27 U/L 14-54 2 Ast (Sgot) 29 U/L 12-42 2 Lipid Profile (Trig/Chol/HDL) 06/19/2008 Triglyceride 73 mg/dL 40-200 2 Cholesterol 202 mg/dL High Less Than 200 2, 10 High Density Lipoprotein 91 mg/dL High 40-60 2, 11 Cholesterol/HDL Ratio 2.22 AVERAGE 1-4.44 2 Low Density Lipoprotein 96 mg/dL Less Than 100 2, 12 Laboratory test finding 06/19/2008 TSH 1.10 MIU/ML 0.34-5.60 2 Hemoglobin A1c 6.8 % High <6.0 2, 13 Laboratory test finding 12/16/2007 TSH 1.83 MIU/ML 0.34-5.60 Basic Metabolic Panel 11/08/2007 One Over Creatinine 1.00 Anion Gap 4.0 mmol/L 2-11 14 BUN 16 mg/dL 6-24 Calcium 10.0 mg/dL 8.7-10.2 Chloride 97 mmol/L Low 101-111 Co2 (Carbon Dioxide) 28.0 mmol/L 22-32 Glucose 261 mg/dL High 70-105 Potassium 5.5 mmol/L High 3.5-5.0 Sodium 129 mmol/L Low 135-145 BUN/Creatinine Ratio 16.0 8-20 Creatinine 1.0 mg/dL 0.5-1.4 Laboratory test finding 11/08/2007 TSH 6.21 MIU/ML High 0.34-5.60 CBC With Electronic Diff 11/08/2007 White Blood Count 4.9 CUMM 4.8-10.8 Abs Basophils 0 0-0.2 Abs Eosinophils 0.1 0-0.6 Absolute Neutrophil Count 2.8 1.5-7.7 Abs Lymphs 1.4 1.0-4.8 Abs Mononuclear 0.6 0-0.8 Basophil % 0.6 % 0-2 Hematocrit 39 % 35-47 Hemoglobin 13.7 g/dL 12.0-16.0 Eosinophil % 2.5 % 0-6 Gran % 57.8 % 38-83 Lymph % 27.6 % 20-45 Mean Corpuscular HGB Cone 35 g/dL 32-36 Mean Corpuscular Hemoglob 33 pg High 27-31 Mean Corpuscular Volume 94 um3 79-97 Mean Platelet Volume 9.1 um3 7.4-10.4 Mononuclear % 11.5 % High 1-9 Platelet Count 301 CUMM 150-450 Red Cell Count 4.11 CUMM Low 4.2-5.4 Redcell Distribution WDTH 13 % 10.5-15 Laboratory test finding 11/08/2007 Hemoglobin A1c 7.4 % High <6.0 15 Laboratory test finding 11/08/2007 Free Thyroxine 1.02 NG/ML 0.61-1.24 16 CBC With Electronic Diff 05/03/2007 White Blood Count 4.6 CUMM Low 4.8- 10.8 2 Abs Basophils 0 0-0.2 2 Abs Eosinophils 0.2 0-0.6 2 Absolute Neutrophil Count 2.7 1.5-7.7 2 Abs Lymphs 1.2 1.0-4.8 2 Abs Mononuclear 0.5 0-0.8 2 Basophil % 0.4 % 0-2 2 Hematocrit 33 % Low 35-47 2 Hemoglobin 11.4 g/dL Low 12.0-16.0 2 Eosinophil % 3.5 % 0-6 2 Gran % 60.2 % 38-83 2 Lymph % 25.5 % 20-45 2 Mean Corpuscular HGB Cone 35 g/dL 32-36 2 Mean Corpuscular Hemoglob 32 pg High 27-31 2 Mean Corpuscular Volume 92 um3 79-97 2 Mean Platelet Volume 8.2 um3 7.4-10.4 2 Mononuclear % 10.4 % High 1-9 2 Platelet Count 340 CUMM 150-450 2 Red Cell Count 3.58 CUMM Low 4.2-5.4 2 Redcell Distribution WDTH 14 % 10.5-15 2 Thyroxine Free 05/03/2007 Free Thyroxine 1.07 NG/ML 0.61-1.24 2, 17 Comp Metabolic Panel 05/03/2007 One Over Creatinine 1.00 2 Anion Gap 6.0 mmol/L 2-11 2, 18 Albumin/Globulin Ratio 1.4 1-3 2 Albumin 3.7 GM/DL 3.6-5.4 2 Alkaline Phosphatase 41 U/L 30-110 2 Alt (SGPT) 29 U/L 14-54 2 Ast (Sgot) 37 U/L 12-42 2 BUN 17 mg/dL 6-24 2 Calcium 9.2 mg/dL 8.7-10.2 2 Chloride 102 mmol/L 101-111 2 Co2 (Carbon Dioxide) 26.0 mmol/L 22-32 2 Globulin 2.7 GM/DL 2-4 2 Glucose 191 mg/dL High 70-105 2 Potassium 4.6 mmol/L 3.5-5.0 2 Sodium 134 mmol/L Low 135-145 2 Bilirubin Total 0.8 mg/dL 0.4-1.5 2 Total Protein 6.4 GM/DL 6.2-8.1 2 BUN/Creatinine Ratio 17.0 8-20 2 Creatinine 1.0 mg/dL 0.5-1.4 2 Lipid Profile 05/03/2007 Cholesterol/HDL Ratio 2.30 AVERAGE 1-4.44 2 (Trig/Chol/HDL) Cholesterol 184 mg/dL Less Than 200 2, 19 Triglyceride 60 mg/dL 40-200 2 High Density Lipoprotein 80 mg/dL High 40-60 2, 20 Low Density Lipoprotein 92 mg/dL Less Than 100 2, 21 Iron & Iron Binding Capacity 05/03/2007 Iron Total 47 g/dL 28-170 2 Unsaturated Iron Binding 291 g/dL 2 Total Iron Binding Capacity 338 g/dL 250-450 2 % Iron Saturation 14 % Low 15-55 2 Laboratory test finding 05/03/2007 TSH 5.94 MIU/ML High 0.34-5.60 2 Vitamin B12 774 pg/mL 180-914 2 Folic Acid 18.3 NG/ML 2.2-18.3 2 Hemoglobin A1c 7.2 % High <6.0 2, 22 1 Normal Range 180 to 914 Indeterminate Range 145 to 180 Deficient Range <145 2 PATIENT MAY HAVE RESULTS PER DOCTOR'S AUTHORIZATION. Questions regarding this report should be directed to your doctor. 3 Anion gap measurement may be of limited value in the presence of any alkalosis, especially in a combined acid base disorder. . 4 Note change in reference range as of 06/01/08. The change was based on recommendations from the [place] [employer]. 5 Please note change in reference range effective 08 . 6 THERAPEUTIC TARGET FOR THE TREATMENT OF DIABETES MELLITUS PATIENTS IS <7% HBA1C, AND IN SELECTIVE PATIENTS <6.0%. PLEASE REFER TO [employer] DIABETIC CARE GUIDELINES FOR FURTHER INFORMATION. 7 Anion gap measurement may be of limited value in the presence of any alkalosis, especially in a combined acid base disorder. . 8 Note change in reference range as of 06/01/08. The change was based on recommendations from the [place] [employer]. 9 Please note change in reference range effective 08 . 10 CHOLESTEROL INTERPRETATION: Desirable: Less than 200 MG/DL Borderline-High Risk: 200-239 MG/DL High-Risk: 240 MG/DL and over 11 HDL INTERPRETATION: Undesirable: High Risk: Less than 40 MG/DL Desirable: Low Risk: Greater than 60 MG/DL 12 LDL INTERPRETATION: Low Risk Optimal Level: LDL Less than 100 MG/DL Near or Above Optimal: LDL 100-129 MG/DL Borderline High Risk: LDL 130-159 MG/DL High Risk: LDL 160-189 MG/DL Very High Risk: LDL Greater than 189 MG/DL 13 THERAPEUTIC TARGET FOR THE TREATMENT OF DIABETES MELLITUS PATIENTS IS <7% HBA1C, AND IN SELECTIVE PATIENTS <6.0%. PLEASE REFER TO [employer] DIABETIC CARE GUIDELINES FOR FURTHER INFORMATION. 14 Anion gap measurement may be of limited value in the presence of any alkalosis, especially in a combined acid base disorder. . 15 THERAPEUTIC TARGET FOR THE TREATMENT OF DIABETES MELLITUS PATIENTS IS <7% HBA1C, AND IN SELECTIVE PATIENTS <6.0%. PLEASE REFER TO [employer] DIABETIC CARE GUIDELINES FOR FURTHER INFORMATION. 16 PLEASE NOTE NEW REFERENCE RANGES. 17 PLEASE NOTE NEW REFERENCE RANGES. 18 Anion gap measurement may be of limited value in the presence of any alkalosis, especially in a combined acid base disorder. . 19 Classification: Desirable . 20 Classification: High . 21 CALCULATED LDL APPROXIMATES THE VALUE OF A DIRECT LDL MEASUREMENT. Classification: Optimal Level . 22 THERAPEUTIC TARGET FOR THE TREATMENT OF DIABETES MELLITUS PATIENTS IS <7% HBA1C, AND IN SELECTIVE PATIENTS <6.0%. PLEASE REFER TO [employer] DIABETIC CARE GUIDELINES FOR FURTHER INFORMATION. Procedures Date CPT Code Description Status 12/10/2017 41414 Inject/Drain Joint/Bursa Major Completed 05/07/2017 52402 Treadmill Interp/Report Only Completed 05/07/2017 19914 Stress Test Supervsn W/Out I/R Completed 05/06/2017 41432 EKG, Interpretation Only Completed 07/27/2015 18624 Stress Test Completed 07/27/2015 95648 Myocardial Perfusion Imaging Tomographic (Spect) Completed Multiple Studies 07/27/2015 94107 Myocardial Perfusion Imaging Tomographic (Spect) Completed Multiple Studies 06/26/2015 38076 Nerve Conduction 03-04 Studies Completed 06/26/2015 51426 Needle Electromyography Each Extremity W/Related Completed Paraspinal Areas Encounters Type Date Location Provider CPT E/M Dx Office Visit 05/08/2017 [facility] Caitlin Cool, 39548 R09.02 11:15a [facility] RN, SKIDDER OPERATOR-BC R06.83 R06.81 R53.83 Z72.821 Office Visit 05/05/2017 2:35p [facility] Coy Espinosa, 22783 R42 Ramon R51 Office Visit 05/05/2017 7:49a [facility] [address] R55 Hospitalists E27.1 E10.40 R74.8 Office Visit 03/31/2017 9:30a [facility] Lanie Martinez 61640 E10.42 [facility] R20.0 G25.81 Office Visit 08/12/2016 9:45a [facility] Lanie Martinez 04308 E10.42 [facility] MaríaDTraci G25.81 G56.03 Office Visit 01/02/2016 9:45a [facility] Lanie Martinez 30674 E10.42 [facility] MaríaDTraci G57.92 G56.01 Office Visit 04/26/2015 10:45a Glen Martinez 84639 333.94 [facility] 357.2 355.8 250.60 355.3 Office Visit 08/10/2014 8:45a Glen Martinez 10474 333.94 Services [facility] Maker M.D. 250.60 357.2 781.2 Office Visit 02/21/2014 8:45a [facility] Lanie Martinez, 98777 781.2 Services [facility] M.D. 333.94 Office Visit 08/23/2013 8:45a [facility] Lanie Martinez, 44154 250.60 [facility] M.D. 357.2 333.94 Office Visit 02/22/2013 8:45a [facility] Lanie Martinez, 41024 333.94 [facility] M.D. 250.60 357.2 Office Visit 08/24/2012 8:45a [facility] Lanie Martinez, 01524 356.9 [facility] M.D. 333.94 Office Visit 12/18/2008 10:00a [facility], 33905 250.01 [facility].D. 244.9 401.1 780.52 Office Visit 06/15/2008 2:30p [facility], 87591 250.01 [facility].D. 272.0 401.1 V03.82 Office Visit 11/08/2007 10:15a [facility], 67467 250.00 [facility].D. 272.0 401.1 Office Visit 04/28/2007 9:45a [facility], 32714 250.91 [facility].D. 401.1 272.2 Plan of Care Future Appointment(s):12/31/2017 9:00 am - Armando Rojas MD at [facility]01/20/2018 11:45 am - Harlan Gergorio MD at [facility] [id number]/10/2017 - Armando Rojas, MDM25.562 Pain in left kneeNew Therapy:Physical Therapy
[2017-12-30] MEDS ORDERED: ALPRAZolam TAB* 0.5 MG PO PRN (13:55)
[2017-12-30] MEDS ORDERED: HYDROcodone/ACETAMIN 5-325 MG* 1 TAB PO PRN (13:56)
[2017-12-30] MEDS ORDERED: Enoxaparin(*) 40 MG/0.4 ML SYR SUBCUT SCH (14:00)
[2017-12-30] MEDS: HYDROcodone/ACETAMIN 5-325 MG* 1 TAB PO PRN ×2 (19:11→23:56)
[2017-12-30] MEDS: Ropinirole TAB* 0.5 MG TAB PO SCH ×2 (19:21→21:37)
[2017-12-30] MEDS: Atorvastatin* 20 MG TAB PO SCH (21:31)
[2017-12-30] MEDS: ACLIDINIUM MDI INH SCH (21:31)
[2017-12-30] MEDS: Docusate CAP* 100 MG PO SCH (21:31)
[2017-12-30] MEDS: Hydrocortisone TAB* 5 MG PO SCH (21:33)
[2017-12-30] MEDS: Metoprolol Tartrate TAB* 25 MG PO SCH (21:34)
[2017-12-30] MEDS: Mirtazapine TAB* 15 MG PO SCH (21:34)
[2017-12-30] MEDS: Mometasone/Formoter 100/5 MDI INH SCH (21:38)
[2017-12-31] MEDS: Levothyroxine TAB* 175 MCG TAB PO SCH (05:54)
--- NOTE | 2017-12-31 06:16 | HP ---
HISTORY AND PHYSICAL: DATE OF ADMISSION: 12/30/17 REASON FOR ADMISSION: Left hip fracture. HISTORY OF PRESENT ILLNESS: Justice Perales is a 62-year-old female. She has a medical history significant for Peck's disease, diabetes, as well as diabetic peripheral neuropathy. She was attending a week-long quilter's retreat in the [facility]. She was walking into the dining room and she tripped on a cord and fell on to her left side. She was taken by ambulance to [facility]. She had x-rays taken and was found to have a left hip fracture of the neck of the femur. She was taken to the operating room on 12/27/17. She underwent a left hemiarthroplasty. She tolerated the procedure well. She was started on Lovenox for DVT prophylaxis. She was felt to have physical therapy and occupational therapy needs. She is now being admitted for inpatient rehab, so she might return to independent living. PAST MEDICAL HISTORY: Significant for diabetes mellitus. She has diabetic peripheral neuropathy, diabetic retinopathy. She has bilateral foot drop as a result of her diabetic neuropathy. She has a history of Peck's disease, asthma as well. According to the patient, she had a small heart attack while she was in [place]. She also has restless leg syndrome. CURRENT MEDICATIONS: Include: 1. Requip. 2. She is also on Advair. 3. She takes Lopressor. 4. Hyzaar. 5. Synthroid. 6. Xopenex inhaler. 7. She takes Cortef for her Peck's disease. 8. She is on hydrocodone for pain relief. 9. She is on Lexapro. 10. Lovenox for DVT prophylaxis. 11. Lipitor, instead of her usual Zocor. 12. She is on Xanax as well. ALLERGIES: OFLOXACIN and RAMIPRIL. SOCIAL HISTORY: She is a nonsmoker, she has about 2 alcoholic beverages a week. She lives alone in a split level house in [place], [place]. REVIEW OF SYSTEMS: The patient reports no current shortness of breath or chest pain. PHYSICAL EXAMINATION VITAL SIGNS: Temperature is 98.1, blood pressure is 185/73, pulse 88, respirations 20. HEENT: Her extraocular movements are intact. Tongue is midline. NECK: Supple. LUNGS: Sounded clear to auscultation bilaterally. HEART: Regular. S1, S2 audible. ABDOMEN: Soft and nontender. EXTREMITIES: Her left hip had a wound, which is clean and dry. She had atrophy in her feet muscles and the intrinsic musculature of her feet bilaterally. NEUROLOGIC: The patient had decreased sensation in her feet. Her muscle strength appeared to be 5/5 except for dorsiflexion and plantar flexion bilaterally. She also had decreased strength around the left hip. FUNCTIONAL EXAM: The patient transfers with contact guard. ASSESSMENT: Left hip fracture in a patient with preexisting diabetic peripheral neuropathy as well as Peck's disease. PLAN: Integrate her into comprehensive therapeutic rehab program with the following goals: 1. Physical Therapy will work with the patient. They are going to work on functional transfer training, ambulation training. 2. Occupational Therapy will see the patient, work on her activities of daily living including toileting and toilet transfers. 3. Lovenox for DVT prophylaxis. 4. For her Peck's disease, we are going to continue her Cortef. We may ask Dr. Krause to see the patient. 5. For her diabetes, we are going to continue her insulin pump. 6. For her coronary artery disease, we are going to continue her Hyzaar as well as Lopressor. We will restart her on an aspirin. 7. For her asthma, continue her Advair as well as her Xopenex inhaler. 8. Adequate analgesia. 9. Her bowels will be regulated. 10. program services assistant will be closely involved to make sure that any services or equipment the patient requires are in place prior to discharge. 11. Continue Requip for restless leg syndrome. 12. Home with appropriate services. ESTIMATED LENGTH OF STAY: Seven to ten days. [id number]/[facility] #: [id number] JUNIOR
[2017-12-31] MEDS: Acetaminophen TAB* 325 MG PO PRN (06:21)
[2017-12-31] MEDS: Hydrocortisone TAB* 10 MG PO SCH ×2 (08:32→12:18)
[2017-12-31] MEDS: Docusate CAP* 100 MG PO SCH ×2 (08:32→21:37)
[2017-12-31] MEDS: HYDROcodone/ACETAMIN 5-325 MG* 1 TAB PO PRN ×4 (08:32→21:22)
[2017-12-31] MEDS: Enoxaparin(*) 40 MG/0.4 ML SYR SUBCUT SCH (08:34)
[2017-12-31] MEDS: Losartan TAB* 25 MG PO SCH (08:34)
[2017-12-31] MEDS: Metoprolol Tartrate TAB* 25 MG PO SCH ×2 (08:34→21:23)
[2017-12-31] MEDS: Furosemide TAB* 20 MG PO SCH (08:34)
[2017-12-31] MEDS: Levalbuterol HFA INHALER* 1 PUFF MDI INH PRN ×2 (08:35→21:27)
[2017-12-31] MEDS: Mometasone/Formoter 100/5 MDI INH SCH ×2 (08:36→21:27)
[2017-12-31] MEDS: ACLIDINIUM MDI INH SCH ×2 (08:40→21:37)
[2017-12-31] MEDS ORDERED: Hydrochlorothiazide TAB* 25 MG PO SCH (09:00)
[2017-12-31] MEDS ORDERED: Escitalopram (NF) 10 MG TAB PO SCH (09:00)
[2017-12-31] MEDS ORDERED: Ropinirole TAB* 0.5 MG TAB PO SCH (15:00)
[2017-12-31] MEDS: Ropinirole TAB* 0.5 MG TAB PO SCH ×3 (15:23→21:23)
--- NOTE | 2017-12-31 20:51 | PN ---
Progress Note Date of Service: 12/31/17 Note: FREDO SCHOFIELD was visited. Therapy notes read and reviewed. She feels tired today after a lot of therapy but feels good. She is getting stronger, using the bathroom. Current Medications: Active Medications Generic Name Dose Route Start Last Admin Trade Name Freq PRN Reason Stop Dose Admin Acetaminophen 650 mg 12/30/17 13:18 12/31/17 06:21 Tylenol Tab* PO 650 mg Q6H PRN Administration FEVER/PAIN Hydrocodone Bitart/Acetaminophen 1 tab 12/30/17 13:56 12/30/17 15:06 [place] 5-325 Tab* PO 1 tab Q4H PRN Administration PAIN - MODERATE TO SEVERE Hydrocodone Bitart/Acetaminophen 2 tab 12/30/17 15:55 12/31/17 16:39 [place] 5-325 Tab* PO 2 tab Q4H PRN Administration PAIN - SEVERE Aclidinium [place] 1 puff 12/30/17 21:00 12/31/17 08:40 Jabari Valladares Mdi(Nf) INH Not Given BID KELLY Alprazolam 1 mg 12/30/17 13:55 Xanax Tab* PO BEDTIME PRN ANXIETY/INSOMNIA Atorvastatin Calcium 20 mg 12/30/17 21:00 12/30/17 21:31 Lipitor* PO 20 mg 2100 KELLY Administration Docusate Sodium 100 mg 12/30/17 21:00 12/31/17 08:32 Colace Cap* PO 100 mg BID KELLY Administration Enoxaparin Sodium 40 mg 12/31/17 09:00 12/31/17 08:34 Lovenox(*) SUBCUT 40 mg Q24H KELLY Administration Escitalopram Oxalate 15 mg 12/31/17 09:00 12/31/17 09:05 Lexapro (Nf) PO Not Given DAILY KELLY Furosemide 20 mg 12/31/17 09:00 12/31/17 08:34 Lasix Tab* PO 20 mg DAILY KELLY Administration Hydrocortisone 10 mg 12/31/17 09:00 12/31/17 12:18 Cortef Tab* PO 10 mg 0900,1200 KELLY Administration Hydrocortisone 2.5 mg 12/30/17 21:00 12/30/17 21:33 Cortef Tab* PO 2.5 mg 2100 KELLY Administration Levalbuterol HCl 2 puff 12/30/17 13:58 12/31/17 08:35 Xopenex Hfa Inhaler* INH 2 puff Q4H PRN Administration SHORTNESS OF BREATH Levothyroxine Sodium 175 mcg 12/31/17 06:00 12/31/17 05:54 Synthroid Tab* PO 175 mcg 0600 KELLY Administration Losartan Potassium 100 mg 12/31/17 09:00 12/31/17 08:34 Cozaar Tab* PO 100 mg DAILY KELLY Administration Magnesium Hydroxide 30 ml 12/30/17 13:18 Milk Of Magnesia Liq* PO Q6H PRN CONSTIPATION Metoprolol Tartrate 25 mg 12/30/17 21:00 12/31/17 08:34 Lopressor Tab* PO 25 mg BID KELLY Administration Mirtazapine 15 mg 12/30/17 21:00 12/30/17 21:34 Remeron Tab* PO 15 mg BEDTIME KELLY Administration Mometasone Furoate/Formoterol Fumar 2 puff 12/30/17 21:00 12/31/17 08:36 Dulera 100/5 Mdi* INH 2 puff BID KELLY Administration Ropinirole HCl 0.5 mg 12/30/17 19:00 12/31/17 18:15 Requip Tab* PO 0.5 mg 1900 KELLY Administration Ropinirole HCl 0.25 mg 12/30/17 22:00 12/31/17 15:23 Requip Tab* PO 0.25 mg 1500,2200 KELLY Administration Senna 2 tab 12/30/17 13:18 Senokot Tab* PO BEDTIME PRN CONSTIPATION Vital Signs: Vital Signs Temp Pulse Resp BP Pulse Ox 98.0 F 68 18 149/68 98 12/31/17 16:48 12/31/17 16:48 12/31/17 16:48 12/31/17 16:48 12/31/17 17:50 Lab Results: Laboratory Results - last 24 hr 12/30/17 12/31/17 12/31/17 17:01 07:38 12:11 POC Glucose (mg/dL) 175 H 74 63 L 12/31/17 12/31/17 16:43 20:17 POC Glucose (mg/dL) 101 H 189 H Exam: LUNGS: Clear HEART: reg rhythm ABDOMEN: Soft EXTREMITIES: Left leg wound clean, some drainage Assessment/Plan: 1. Left hip fracture, S/P HAP: PT/OT 2. Tho's Disease: Cortef 3. Diabetes: Insulin pump 4. CAD/History of [place]: Cozaar/Lasix/Statin 5. COPD: Xopenex/Advair 6. RLS: Requip 7. DPN: Does not like braces. 8. DVT Prophylaxis: Lovenox 9. Analgesia: [place] 12/31/17 20:53
[2017-12-31] MEDS: Mirtazapine TAB* 15 MG PO SCH (21:23)
[2017-12-31] MEDS: Atorvastatin* 20 MG TAB PO SCH (21:23)
[2017-12-31] MEDS: Hydrocortisone TAB* 5 MG PO SCH (21:24)
[2018-01-01] MEDS: Acetaminophen TAB* 325 MG PO PRN ×2 (00:01→06:13)
[2018-01-01] MEDS: HYDROcodone/ACETAMIN 5-325 MG* 1 TAB PO PRN ×4 (02:33→18:54)
[2018-01-01] MEDS: Levothyroxine TAB* 175 MCG TAB PO SCH (05:10)
[2018-01-01 06:23] LABS: Hematocrit 27 % (35-47); Hemoglobin 9.5 g/dl (12.0-16.0); Mean Corpuscular HGB Conc 35 g/dl (31-36); Mean Corpuscular Hemoglobin 34 pg (27-31); Mean Corpuscular Volume 96 fL (80-97); Mean Platelet Volume 8.1 um3 (7.4-10.4); Platelet Count 233 10^3/ul (150-450); Red Blood Count 2.82 10^6/ul (4.0-5.4); Red Cell Distribution Width 15 % (10.5-15); White Blood Count 6.5 10^3/ul (3.5-10.8)
[2018-01-01 06:27] LABS: EGFR Non-African American 51.6 (>60)
[2018-01-01 06:43] LABS: ABS Basophils 0 10^3/ul (0-0.2); ABS Eosinophils 0.2 10^3/ul (0-0.6); ABS Lymphocytes 1.1 10^3/ul (1.0-4.8); ABS Monocytes 0.7 10^3/ul (0-0.8); ABS Neutrophils 4.5 10^3/ul (1.5-7.7)
[2018-01-01 06:46] LABS: Monocytes % 6 % (0-7)
[2018-01-01] MEDS: Enoxaparin(*) 40 MG/0.4 ML SYR SUBCUT SCH (08:23)
[2018-01-01] MEDS: Mometasone/Formoter 100/5 MDI INH SCH ×2 (08:24→20:02)
[2018-01-01] MEDS: Docusate CAP* 100 MG PO SCH ×2 (08:24→20:00)
[2018-01-01] MEDS: Hydrocortisone TAB* 10 MG PO SCH ×2 (08:24→13:06)
[2018-01-01] MEDS: Losartan TAB* 25 MG PO SCH (08:24)
[2018-01-01] MEDS: Furosemide TAB* 20 MG PO SCH (08:24)
[2018-01-01] MEDS: ESCITALOPRAM 10 MG PO SCH (08:24)
[2018-01-01] MEDS: Metoprolol Tartrate TAB* 25 MG PO SCH ×2 (08:24→19:59)
[2018-01-01] MEDS: ACLIDINIUM MDI INH SCH ×2 (08:25→20:02)
--- NOTE | 2018-01-01 12:31 | PMRUTEAM ---
PMRU: Team Meeting Current Status: Nursing: Current Status Skin Deviations [Left Hip] Incision Skin Deviation Description [ cleaned with NS and gauze. telfa and abd pad with Left Hip] cloth tape. Serosanguineous drainage more on the proximal end. 4 small blisters in the middle of the incision. The blisters are smaller than yesterday. Physical Therapy: Current Status Bed Mobility Assistance Mod Assist Transfer Moblility Assistance Contact guard Transfer/Bed Mobility Rolling Walker Recommended Devices Ambulation Assistance Contact guard Ambulation Assistive Devices Rolling Walker Number of Feet Patient 15' and 50' Ambulated Stairs Assistance Not Tested Stairs Recommended Devices Two Rails Number of Stairs 3 Curb Not Tested Occupational Therapy: Current Status Upper Body Dressing Supervision Lower Body Dressing Min Assist Bathing Min Assist Toileting Supervision,Contact Guard Assist Toilet Transfer Supervision Shower Transfer Contact Guard Assist Eating Independent Rec Therapy: Current Status Summary of Assessment and Pt. was open to conversation. Pt. states she Clinical Impression enjoys her life and likes to keep busy. Pt. was interested in continued leisure visits. Treatment Goals Pt. will engage in leisure activities while on the unit. Treatment Plan Provide RT services and encourage involvement. Social Work: Current Status Discharge Plan return home with home care svs and family support Potential for Family Training TBD - pt's family lives out of town Anticipated Discharge Home Destination Discharge With home care svs and family support Speech: Current Status Assessment No further skilled PIZZAMAKER interventions are indicated at this time Goals: Physical Therapy: Initial Goals Bed Mobility Assistance Independent Transfer Mobility Assistance Independent Transfer/Bed Mobility Rolling Walker Recommended Devices Ambulation Independent Ambulation Recommended Devices Rolling Walker Ambulation Distance 150 Stairs Assistance Independent Stair Recommended Devices Two Rails Number of Stairs 1 flight Physical Therapy: Updated Goals Transfer/Bed Mobility Rolling Walker Recommended Devices Occupational Therapy: Initial Goals Goals to be Completed in (Days 7-10 ) Upper Body Bathing Routine Independent Lower Body Bathing Routine Modified Independent with Upper Body Dressing Routine Independent Lower Body Dressing Routine Modified Independent with Toilet Hygeine and Clothing Modified Independent with Management Routine Toilet Transfer Routine Modified Independent with Step-In Shower Transfer Modified Independent with Routine Functional Transfers for ADL Modified Independent with Grooming Routine Independent Feeding Routine Independent Social Work: Goals Discharge Plan return home with home care svs and family support Potential for Family Training TBD - pt's family lives out of town Anticipated Discharge Home Destination Discharge With home care svs and family support Care Plan: Care Plan ADL's - Improve/Maintain Start: 12/31/17 01:07 Freq: DAILY Status: Active Target: Protocol: Activity Type Activity Date Activity User E-Sign Co-Sign Detail Recorded Client Recorded Date Recorded By Document 12/31/17 13:44 [id number] 12/31/17 13:44 [id number] 12/31/17 13:44 PMRU Outcome: ADL's/ADL Transfers Orders/Interventions Occupational Therapy Evaluation & Treatment Device Yes Patient to receive OT 5x/wk for 60-120 Therex min/day Self Care Management Group Therapy UE/LE ADL's with Assist Yes: mod I ADL Transfers with Assist Yes: mod I Toileting: Transfers,Clothing Management Yes: mod I ,Hygeine w/Assist Progression Toward Outcome/Goals Progressing Outcome/Goals Met Pt making gains in consistency of STS transfers without physical assistance. Will benefit from AE training starting tomorrow to maximize independence with distal LB ADLs. Pain much better controlled today. Cardiovascular- Improve/Maintain Start: 12/31/17 01:07 Freq: DAILY Status: Active Target: Protocol: Activity Type Activity Date Activity User E-Sign Co-Sign Detail Recorded Client Recorded Date Recorded By Document 01/01/18 08:00 [id number] 01/01/18 09:40 [id number] 01/01/18 08:00 PMRU Outcome: Cardiovascular Vital Signs q Shift for 48hrs Then BID Yes Daily Weight Ordered No Current Cardiovascular Outcome/Goal Maintain/ Achieve Baseline HR, BP , Perfusion Free of Abnormal Cardiac Symptoms Progression Toward Outcome/Goal Progressing Communication-Improve/Maintain Start: 12/31/17 01:07 Freq: DAILY Status: Active Target: Protocol: Activity Type Activity Date Activity User E-Sign Co-Sign Detail Recorded Client Recorded Date Recorded By Document 01/01/18 01:00 [id number] 01/01/18 01:00 [id number] 01/01/18 01:00 PMRU Outcome: Communication/Cognitive Status Outcome/Goals Use Comm Tools/ Devices Progression Toward Outcomes/Goals Progressing Discharge Planning - Improve/Maintain Start: 12/31/17 01:07 Freq: DAILY Status: Active Target: Protocol: Activity Type Activity Date Activity User E-Sign Co-Sign Detail Recorded Client Recorded Date Recorded By Document 01/01/18 01:00 [id number] 01/01/18 01:00 [id number] 01/01/18 01:00 PMRU Outcome: Discharge Planning Outcome/Goals Demonstrates Understanding of Discharge Plan Progression Toward Outcome/Goals Progressing Education-Improve/Maintain Start: 12/31/17 01:07 Freq: DAILY Status: Active Target: Protocol: Activity Type Activity Date Activity User E-Sign Co-Sign Detail Recorded Client Recorded Date Recorded By Document 01/01/18 08:00 [id number] [email or web address] 01/01/18 09:40 [id number] 01/01/18 08:00 PMRU Outcome: Education Outcome/Goals Demonstrate/ Verbalize Understanding of Written Discharge Instructions Demonstrates Skills Encourage Questions Progression Toward Outcome/Goals Progressing /GI-Improve/Maintain Start: 12/31/17 01:07 Freq: DAILY Status: Active Target: Protocol: Activity Type Activity Date Activity User E-Sign Co-Sign Detail Recorded Client Recorded Date Recorded By Document 01/01/18 08:00 [id number] [email or web address] 01/01/18 09:40 [id number] 01/01/18 08:00 PMRU Outcome: Genitourinary/ Gastrointestinal Genitourinary- Outcome/Goals Maintain/ Achieve Urinary Continence Remain Free of Hospital- Acquired UTI Gastrointestinal-Outcome/Goals Maintain/ Achieve Bowel Regularity in Accordance with Pt's Baseline Prevent Constipation Progression Toward Outcome/Goals - Progressing Progression Toward Outcome/Goals - GI Progressing Outcome/Goals Met Comment pt up to BR Metabolic Status- Improve/Maintain Start: 12/31/17 01:07 Freq: DAILY Status: Active Target: Protocol: Activity Type Activity Date Activity User E-Sign Co-Sign Detail Recorded Client Recorded Date Recorded By Document 01/01/18 08:00 [id number] 01/01/18 09:40 [id number] 01/01/18 08:00 PMRU Outcome: Metabolic Status Have Fingersticks Been Ordered Yes Fingerstick Order Frequency AC & HS Outcome/Goals Maintain/ Improve Metabolic Status Progression Toward Outcome/Goals Progressing Mobility- Improve/Maintain Start: 12/30/17 18:17 Freq: DAILY Status: Active Target: Protocol: Activity Type Activity Date Activity User E-Sign Co-Sign Detail Recorded Client Recorded Date Recorded By Document 12/30/17 18:17 [id number] 12/30/17 18:18 [id number] 12/30/17 18:17 PMRU Outcome: Mobility Physical Therapy Evaluation and Yes Treatment Activity OOB with Assistance Yes WBAT Yes Device Yes Assistance Yes Patient to be seen 5x/wk for 60-120 min/ Therex day for: Mobility Training Gait Training W/C Mobility Balance Outcome/Goals Maintain/ Achieve Baseline Mobility Status Improve Mobility Status Demonstrates Proper Use of Assistive Devices Free from Complications of Immobility Bed Mobility Yes: independent Transfers Yes: independent with rolling walker. Gait x ft Yes: independent with rolling walker 150' Up/Down Stairs Yes: independent up/ down 10 stairs with 2 rails. Neurological- Improve/Maintain Start: 12/31/17 01:07 Freq: DAILY Status: Active Target: Protocol: Activity Type Activity Date Activity User E-Sign Co-Sign Detail Recorded Client Recorded Date Recorded By Document 01/01/18 08:00 [id number] 01/01/18 09:40 01/01/18 08:00 PMRU Outcome: Neurological Weakness/Aphasia Weakness Left Side Outcome/Goals Maintain/ Achieve Baseline Neurological Status Maintain/ Improve Strength/ROM Progression Toward Outcome/Goals Progressing Pain/Comfort- Improve/Maintain Start: 12/31/17 01:07 Freq: DAILY Status: Active Target: Protocol: Activity Type Activity Date Activity User E-Sign Co-Sign Detail Recorded Client Recorded Date Recorded By Document 01/01/18 08:00 [id number] 01/01/18 09:40 01/01/18 08:00 PMRU Outcome: Pain/Comfort Outcome/Goals Demonstrates Knowledge and Use of Available Comfort Measures Achieves Acceptable Comfort/Pain Level as Determined by Patient/Condit Maintain Comfort Level Allowing Patient to Fully Participate in Rehab Progression Toward Outcome/Goals Progressing Safety- Improve/Maintain Start: 12/31/17 01:07 Freq: DAILY Status: Active Target: Protocol: Activity Type Activity Date Activity User E-Sign Co-Sign Detail Recorded Client Recorded Date Recorded By Document 01/01/18 08:00 [id number] 01/01/18 09:40 01/01/18 08:00 PMRU Outcome: Safety Outcome/Goals Remain Free of Injury or Harm Prevent Falls/ Injury Progression Toward Outcome/Goals Progressing Skin- Improve/Maintain Start: 12/31/17 01:07 Freq: DAILY Status: Active Target: Protocol: Activity Type Activity Date Activity User E-Sign Co-Sign Detail Recorded Client Recorded Date Recorded By Document 01/01/18 08:00 [id number] 01/01/18 09:40 01/01/18 08:00 PMRU Outcome: Skin Skin Risk Level Medium Skin Orders Dressing Change Heels Off Bed Outcome/Goals Maintain/ Improve Skin Intergrity Surgical Incisions Healing Progression Toward Outcome/Goals Progressing Medicine Note: Length of Stay: 4 days Anticipated Discharge Destination: Home Tentative Discharge Date: 01/05/18 Discharged to: Home
[2018-01-01] MEDS: Methocarbamol TAB* 500 MG PO PRN ×2 (14:27→20:52)
[2018-01-01] MEDS: Ropinirole TAB* 0.5 MG TAB PO SCH ×3 (14:42→20:53)
--- NOTE | 2018-01-01 18:41 | PN ---
Progress Note Date of Service: 01/01/18 Note: FREDO SCHOFIELD was visited. Therapy notes read and reviewed. She was discussed in interdisciplinary plan of care rounds. She is doing well. Would like to see her AFOs. Current Medications: Active Medications Generic Name Dose Route Start Last Admin Trade Name Freq PRN Reason Stop Dose Admin Acetaminophen 650 mg 12/30/17 13:18 01/01/18 06:13 Tylenol Tab* PO 650 mg Q6H PRN Administration FEVER/PAIN Hydrocodone Bitart/Acetaminophen 1 tab 12/30/17 13:56 12/30/17 15:06 [place] 5-325 Tab* PO 1 tab Q4H PRN Administration PAIN - MODERATE TO SEVERE Hydrocodone Bitart/Acetaminophen 2 tab 12/30/17 15:55 01/01/18 14:27 [place] 5-325 Tab* PO 2 tab Q4H PRN Administration PAIN - SEVERE Aclidinium [place] 1 puff 12/30/17 21:00 01/01/18 08:25 Jabari Valladares Mdi(Nf) INH Not Given BID KELLY Alprazolam 1 mg 12/30/17 13:55 Xanax Tab* PO BEDTIME PRN ANXIETY/INSOMNIA Atorvastatin Calcium 20 mg 12/30/17 21:00 12/31/17 21:23 Lipitor* PO 20 mg 2100 KELLY Administration Docusate Sodium 100 mg 12/30/17 21:00 01/01/18 08:24 Colace Cap* PO 100 mg BID KELLY Administration Enoxaparin Sodium 40 mg 12/31/17 09:00 01/01/18 08:23 Lovenox(*) SUBCUT 40 mg Q24H KELLY Administration Escitalopram Oxalate 15 mg 01/01/18 09:00 01/01/18 08:24 Lexapro (Nf) PO 15 mg DAILY KELLY Administration Furosemide 20 mg 12/31/17 09:00 01/01/18 08:24 Lasix Tab* PO 20 mg DAILY KELLY Administration Hydrocortisone 10 mg 12/31/17 09:00 01/01/18 13:06 Cortef Tab* PO 10 mg 0900,1200 KELLY Administration Hydrocortisone 2.5 mg 12/30/17 21:00 12/31/17 21:24 Cortef Tab* PO 2.5 mg 2100 KELLY Administration Levalbuterol HCl 2 puff 12/30/17 13:58 12/31/17 21:27 Xopenex Hfa Inhaler* INH 2 puff Q4H PRN Administration SHORTNESS OF BREATH Levothyroxine Sodium 175 mcg 12/31/17 06:00 01/01/18 05:10 Synthroid Tab* PO 175 mcg 0600 KELLY Administration Losartan Potassium 100 mg 12/31/17 09:00 01/01/18 08:24 Cozaar Tab* PO 100 mg DAILY KELLY Administration Magnesium Hydroxide 30 ml 12/30/17 13:18 Milk Of Magnesia Liq* PO Q6H PRN CONSTIPATION Methocarbamol 1,000 mg 01/01/18 13:10 01/01/18 14:27 Robaxin Tab* PO 1,000 mg Q6H PRN Administration SPASMS Metoprolol Tartrate 25 mg 12/30/17 21:00 01/01/18 08:24 Lopressor Tab* PO 25 mg BID KELLY Administration Mirtazapine 15 mg 12/30/17 21:00 12/31/17 21:23 Remeron Tab* PO 15 mg BEDTIME KELLY Administration Mometasone Furoate/Formoterol Fumar 2 puff 12/30/17 21:00 01/01/18 08:24 Dulera 100/5 Mdi* INH 2 puff BID KELLY Administration Ropinirole HCl 0.5 mg 12/30/17 19:00 12/31/17 18:15 Requip Tab* PO 0.5 mg 1900 KELLY Administration Ropinirole HCl 0.25 mg 12/30/17 22:00 01/01/18 14:42 Requip Tab* PO 0.25 mg 1500,2200 KELLY Administration Senna 2 tab 12/30/17 13:18 Senokot Tab* PO BEDTIME PRN CONSTIPATION Vital Signs: Vital Signs Temp Pulse Resp BP Pulse Ox 98.1 F 62 18 134/50 97 01/01/18 15:55 01/01/18 15:55 01/01/18 17:16 01/01/18 15:55 01/01/18 17:17 Lab Results: Laboratory Results - last 24 hr 12/31/17 01/01/18 01/01/18 20:17 05:39 05:39 WBC 6.5 RBC 2.82 L Hgb 9.5 L Hct 27 L MCV 96 MCH 34 H MCHC 35 RDW 15 Plt Count 233 MPV 8.1 Neut % (Auto) Not Reportable Lymph % (Auto) Not Reportable [place] % (Auto) Not Reportable Eos % (Auto) Not Reportable Baso % (Auto) Not Reportable Absolute Neuts (auto) 4.5 Absolute Lymphs (auto) 1.1 Absolute Monos (auto) 0.7 Absolute Eos (auto) 0.2 Absolute Basos (auto) 0 Absolute Nucleated RBC Not Reportable Immature Gran % 3 Neutrophils % 74 Lymphocytes % 17 L Monocytes % 6 Eosinophils % 0 Basophils % 0 Myelocytes % 3 H Nucleated RBC % Not Reportable Abs Neuts (Manual) 4.8 Abs Lymphs (Manual) 1.1 Abs Monocytes (Manual) 0.4 Absolute Eos (Manual) 0 Abs Basophils (Manual) 0 Normal RBC Morphology Not Reportable Polychromasia 1+ Sodium 136 Potassium 4.8 Chloride 103 Carbon Dioxide 28 Anion Gap 5 BUN 27 H Creatinine 1.08 H Est GFR ( Amer) 66.3 Est GFR (Non-Af Amer) 51.6 BUN/Creatinine Ratio 25.0 H Glucose 159 H POC Glucose (mg/dL) 189 H Calcium 9.4 Total Bilirubin 0.70 AST 41 H ALT 25 Alkaline Phosphatase 97 Total Protein 5.2 L Albumin 2.9 L Globulin 2.3 Albumin/Globulin Ratio 1.3 01/01/18 01/01/18 01/01/18 07:47 11:52 16:52 WBC RBC Hgb Hct MCV MCH MCHC RDW Plt Count MPV Neut % (Auto) Lymph % (Auto) [place] % (Auto) Eos % (Auto) Baso % (Auto) Absolute Neuts (auto) Absolute Lymphs (auto) Absolute Monos (auto) Absolute Eos (auto) Absolute Basos (auto) Absolute Nucleated RBC Immature Gran % Neutrophils % Lymphocytes % Monocytes % Eosinophils % Basophils % Myelocytes % Nucleated RBC % Abs Neuts (Manual) Abs Lymphs (Manual) Abs Monocytes (Manual) Absolute Eos (Manual) Abs Basophils (Manual) Normal RBC Morphology Polychromasia Sodium Potassium Chloride Carbon Dioxide Anion Gap BUN Creatinine Est GFR ( Amer) Est GFR (Non-Af Amer) BUN/Creatinine Ratio Glucose POC Glucose (mg/dL) 154 H 104 H 119 H Calcium Total Bilirubin AST ALT Alkaline Phosphatase Total Protein Albumin Globulin Albumin/Globulin Ratio Exam: LUNGS: Clear HEART: reg rhythm ABDOMEN: Soft EXTREMITIES: Left leg wound clean, some drainage NEUROLOGIC: limited dorsiflexion Assessment/Plan: 1. Left hip fracture, S/P HAP: PT/OT 2. Coleman's Disease: Cortef 3. Diabetes: Insulin pump 4. CAD/History of [place]: Cozaar/Lasix/Statin 5. COPD: Xopenex/Advair 6. RLS: Requip 7. DPN: Does not like braces. She may do well with a carbon fiber AFO 8. DVT Prophylaxis: Lovenox 9. Analgesia: [place] 01/01/18 18:41
[2018-01-01] MEDS: Atorvastatin* 20 MG TAB PO SCH (19:59)
[2018-01-01] MEDS: Hydrocortisone TAB* 5 MG PO SCH (20:01)
[2018-01-01] MEDS: Mirtazapine TAB* 15 MG PO SCH (20:53)
[2018-01-02] MEDS: HYDROcodone/ACETAMIN 5-325 MG* 1 TAB PO PRN ×2 (01:28→07:41)
[2018-01-02] MEDS: Levothyroxine TAB* 175 MCG TAB PO SCH (05:46)
[2018-01-02] MEDS: ACLIDINIUM MDI INH SCH ×2 (07:40→21:08)
[2018-01-02] MEDS: Furosemide TAB* 20 MG PO SCH (07:41)
[2018-01-02] MEDS: Docusate CAP* 100 MG PO SCH ×2 (07:41→21:09)
[2018-01-02] MEDS: Metoprolol Tartrate TAB* 25 MG PO SCH ×2 (07:41→21:08)
[2018-01-02] MEDS: Hydrocortisone TAB* 10 MG PO SCH ×2 (07:41→11:36)
[2018-01-02] MEDS: Losartan TAB* 25 MG PO SCH (07:41)
[2018-01-02] MEDS: ESCITALOPRAM 10 MG PO SCH (07:42)
[2018-01-02] MEDS: Methocarbamol TAB* 500 MG PO PRN ×3 (07:42→21:06)
[2018-01-02] MEDS: Enoxaparin(*) 40 MG/0.4 ML SYR SUBCUT SCH (07:44)
[2018-01-02] MEDS: Mometasone/Formoter 100/5 MDI INH SCH ×2 (07:45→21:08)
[2018-01-02] MEDS ORDERED: oxyCODONE/Acetamin 5/325 MG* TAB PO PRN (11:16)
--- NOTE | 2018-01-02 11:21 | PN ---
Progress Note Date of Service: 01/02/18 Note: FREDO SCHOFIELD was visited. Therapy notes read and reviewed. She thinks her pain medications aren't strong enough, as she is on what she normally takes for pain ([place]). Will try Percocet Current Medications: Active Medications Generic Name Dose Route Start Last Admin Trade Name Freq PRN Reason Stop Dose Admin Acetaminophen 650 mg 12/30/17 13:18 01/01/18 06:13 Tylenol Tab* PO 650 mg Q6H PRN Administration FEVER/PAIN Aclidinium [place] 1 puff 12/30/17 21:00 01/02/18 07:40 Jabari Valladares Mdi(Nf) INH 1 puff BID KELLY Administration Alprazolam 1 mg 12/30/17 13:55 Xanax Tab* PO BEDTIME PRN ANXIETY/INSOMNIA Atorvastatin Calcium 20 mg 12/30/17 21:00 01/01/18 19:59 Lipitor* PO 20 mg 2100 KELLY Administration Docusate Sodium 100 mg 12/30/17 21:00 01/02/18 07:41 Colace Cap* PO 100 mg BID KELLY Administration Enoxaparin Sodium 40 mg 12/31/17 09:00 01/02/18 07:44 Lovenox(*) SUBCUT 40 mg Q24H KELLY Administration Escitalopram Oxalate 15 mg 01/01/18 09:00 01/02/18 07:42 Lexapro (Nf) PO 15 mg DAILY KELLY Administration Furosemide 20 mg 12/31/17 09:00 01/02/18 07:41 Lasix Tab* PO 20 mg DAILY KELLY Administration Hydrocortisone 10 mg 12/31/17 09:00 01/02/18 07:41 Cortef Tab* PO 10 mg 0900,1200 KELLY Administration Hydrocortisone 2.5 mg 12/30/17 21:00 01/01/18 20:01 Cortef Tab* PO 2.5 mg 2100 KELLY Administration Levalbuterol HCl 2 puff 12/30/17 13:58 12/31/17 21:27 Xopenex Hfa Inhaler* INH 2 puff Q4H PRN Administration SHORTNESS OF BREATH Levothyroxine Sodium 175 mcg 12/31/17 06:00 01/02/18 05:46 Synthroid Tab* PO 175 mcg 0600 KELLY Administration Losartan Potassium 100 mg 12/31/17 09:00 01/02/18 07:41 Cozaar Tab* PO 100 mg DAILY KELLY Administration Magnesium Hydroxide 30 ml 12/30/17 13:18 Milk Of Magnesia Liq* PO Q6H PRN CONSTIPATION Methocarbamol 1,000 mg 01/01/18 13:10 01/02/18 07:42 Robaxin Tab* PO 1,000 mg Q6H PRN Administration SPASMS Metoprolol Tartrate 25 mg 12/30/17 21:00 01/02/18 07:41 Lopressor Tab* PO 25 mg BID KELLY Administration Mirtazapine 15 mg 12/30/17 21:00 01/01/18 20:53 Remeron Tab* PO 15 mg BEDTIME KELLY Administration Mometasone Furoate/Formoterol Fumar 2 puff 12/30/17 21:00 01/02/18 07:45 Dulera 100/5 Mdi* INH 2 puff BID KELLY Administration Oxycodone/Acetaminophen 2 tab 01/02/18 11:15 Percocet 5/325 Tab* PO Q4H PRN PAIN - SEVERE Oxycodone/Acetaminophen 1 tab 01/02/18 11:16 Percocet 5/325 Tab* PO Q4H PRN PAIN - MODERATE TO SEVERE Ropinirole HCl 0.5 mg 12/30/17 19:00 01/01/18 18:53 Requip Tab* PO 0.5 mg 1900 KELLY Administration Ropinirole HCl 0.25 mg 12/30/17 22:00 01/01/18 20:53 Requip Tab* PO 0.25 mg 1500,2200 KELLY Administration Senna 2 tab 12/30/17 13:18 Senokot Tab* PO BEDTIME PRN CONSTIPATION Vital Signs: Vital Signs Temp Pulse Resp BP Pulse Ox 98.6 F 61 18 151/57 99 01/02/18 05:43 01/02/18 05:43 01/02/18 10:06 01/02/18 05:43 01/02/18 05:43 Lab Results: Laboratory Results - last 24 hr 01/01/18 01/01/18 01/01/18 11:52 16:52 20:48 POC Glucose (mg/dL) 104 H 119 H 201 H 01/02/18 07:50 POC Glucose (mg/dL) 180 H Exam: LUNGS: Clear HEART: reg rhythm ABDOMEN: Soft EXTREMITIES: Left leg wound clean, some drainage NEUROLOGIC: limited dorsiflexion Assessment/Plan: 1. Left hip fracture, S/P HAP: PT/OT 2. Tho's Disease: Cortef 3. Diabetes: Insulin pump 4. CAD/History of [place]: Cozaar/Lasix/Statin 5. COPD: Xopenex/Advair 6. RLS: Requip 7. DPN: Does not like braces. She may do well with a carbon fiber AFO 8. DVT Prophylaxis: Lovenox 9. Analgesia: Will d/c [place] and try Percocet 10. Hypothyroidism: Synthroid 01/02/18 11:22
[2018-01-02] MEDS: oxyCODONE/Acetamin 5/325 MG* TAB PO PRN ×3 (11:35→21:06)
[2018-01-02] MEDS: Ropinirole TAB* 0.5 MG TAB PO SCH ×3 (14:34→22:50)
[2018-01-02] MEDS: Mirtazapine TAB* 15 MG PO SCH (21:07)
[2018-01-02] MEDS: Hydrocortisone TAB* 5 MG PO SCH (21:07)
[2018-01-02] MEDS: Atorvastatin* 20 MG TAB PO SCH (21:08)
[2018-01-03] MEDS: oxyCODONE/Acetamin 5/325 MG* TAB PO PRN ×5 (02:05→21:15)
[2018-01-03] MEDS: Methocarbamol TAB* 500 MG PO PRN ×3 (04:49→21:15)
[2018-01-03] MEDS: Levothyroxine TAB* 175 MCG TAB PO SCH (05:03)
[2018-01-03] MEDS: ACLIDINIUM MDI INH SCH ×2 (08:03→20:23)
[2018-01-03] MEDS: ESCITALOPRAM 10 MG PO SCH (08:04)
[2018-01-03] MEDS: Docusate CAP* 100 MG PO SCH ×2 (08:05→21:04)
[2018-01-03] MEDS: Hydrocortisone TAB* 10 MG PO SCH ×2 (08:05→12:09)
[2018-01-03] MEDS: Furosemide TAB* 20 MG PO SCH (08:05)
[2018-01-03] MEDS: Metoprolol Tartrate TAB* 25 MG PO SCH ×2 (08:05→21:04)
[2018-01-03] MEDS: Losartan TAB* 25 MG PO SCH (08:05)
[2018-01-03] MEDS: Mometasone/Formoter 100/5 MDI INH SCH ×2 (08:06→20:21)
[2018-01-03] MEDS: Enoxaparin(*) 40 MG/0.4 ML SYR SUBCUT SCH (08:07)
[2018-01-03] MEDS: Ropinirole TAB* 0.5 MG TAB PO SCH ×3 (14:02→22:11)
--- NOTE | 2018-01-03 16:39 | PN ---
Progress Note Date of Service: 01/03/18 Note: FREDO SCHOFIELD was visited. Nursing notes read and reviewed. She thinks the Percocet is much more effective than the [place]. Her pain is better controlled. Current Medications: Active Medications Generic Name Dose Route Start Last Admin Trade Name Freq PRN Reason Stop Dose Admin Acetaminophen 650 mg 12/30/17 13:18 01/01/18 06:13 Tylenol Tab* PO 650 mg Q6H PRN Administration FEVER/PAIN Aclidinium [place] 1 puff 12/30/17 21:00 01/03/18 08:03 Jabari Valladares Mdi(Nf) INH 1 puff BID KELLY Administration Alprazolam 1 mg 12/30/17 13:55 Xanax Tab* PO BEDTIME PRN ANXIETY/INSOMNIA Atorvastatin Calcium 20 mg 12/30/17 21:00 01/02/18 21:08 Lipitor* PO 20 mg 2100 KELLY Administration Docusate Sodium 100 mg 12/30/17 21:00 01/03/18 08:05 Colace Cap* PO 100 mg BID KELLY Administration Enoxaparin Sodium 40 mg 12/31/17 09:00 01/03/18 08:07 Lovenox(*) SUBCUT 40 mg Q24H KELLY Administration Escitalopram Oxalate 15 mg 01/01/18 09:00 01/03/18 08:04 Lexapro (Nf) PO 15 mg DAILY KELLY Administration Furosemide 20 mg 12/31/17 09:00 01/03/18 08:05 Lasix Tab* PO 20 mg DAILY KELLY Administration Hydrocortisone 10 mg 12/31/17 09:00 01/03/18 12:09 Cortef Tab* PO 10 mg 0900,1200 KELLY Administration Hydrocortisone 2.5 mg 12/30/17 21:00 01/02/18 21:07 Cortef Tab* PO 2.5 mg 2100 KELLY Administration Levalbuterol HCl 2 puff 12/30/17 13:58 12/31/17 21:27 Xopenex Hfa Inhaler* INH 2 puff Q4H PRN Administration SHORTNESS OF BREATH Levothyroxine Sodium 175 mcg 12/31/17 06:00 01/03/18 05:03 Synthroid Tab* PO 175 mcg 0600 KELLY Administration Losartan Potassium 100 mg 12/31/17 09:00 01/03/18 08:05 Cozaar Tab* PO 100 mg DAILY KELLY Administration Magnesium Hydroxide 30 ml 12/30/17 13:18 Milk Of Magnesia Liq* PO Q6H PRN CONSTIPATION Methocarbamol 1,000 mg 01/01/18 13:10 01/03/18 12:10 Robaxin Tab* PO 1,000 mg Q6H PRN Administration SPASMS Metoprolol Tartrate 25 mg 12/30/17 21:00 01/03/18 08:05 Lopressor Tab* PO 25 mg BID KELLY Administration Mirtazapine 15 mg 12/30/17 21:00 01/02/18 21:07 Remeron Tab* PO 15 mg BEDTIME KELLY Administration Mometasone Furoate/Formoterol Fumar 2 puff 12/30/17 21:00 01/03/18 08:06 Dulera 100/5 Mdi* INH 2 puff BID KELLY Administration Oxycodone/Acetaminophen 2 tab 01/02/18 11:15 01/03/18 12:09 Percocet 5/325 Tab* PO 2 tab Q4H PRN Administration PAIN - SEVERE Oxycodone/Acetaminophen 1 tab 01/02/18 11:16 Percocet 5/325 Tab* PO Q4H PRN PAIN - MODERATE TO SEVERE Ropinirole HCl 0.5 mg 12/30/17 19:00 01/02/18 20:30 Requip Tab* PO 0.5 mg 1900 KELLY Administration Ropinirole HCl 0.25 mg 12/30/17 22:00 01/03/18 14:02 Requip Tab* PO 0.25 mg 1500,2200 KELLY Administration Senna 2 tab 12/30/17 13:18 Senokot Tab* PO BEDTIME PRN CONSTIPATION Vital Signs: Vital Signs Temp Pulse Resp BP Pulse Ox 98.4 F 59 16 119/46 97 01/03/18 16:02 01/03/18 16:02 01/03/18 16:02 01/03/18 16:02 01/03/18 16:02 Lab Results: Laboratory Results - last 24 hr 01/02/18 01/02/18 01/03/18 16:45 20:52 08:02 POC Glucose (mg/dL) 203 H 169 H 134 H 01/03/18 11:47 POC Glucose (mg/dL) 173 H Exam: LUNGS: Clear HEART: reg rhythm ABDOMEN: Soft EXTREMITIES: Left leg wound clean, some drainage NEUROLOGIC: limited dorsiflexion Assessment/Plan: 1. Left hip fracture, S/P HAP: PT/OT 2. Edgar's Disease: Cortef 3. Diabetes: Insulin pump 4. CAD/History of [place]: Cozaar/Lasix/Statin 5. COPD: Xopenex/Advair 6. RLS: Requip 7. DPN: Does not like braces. She may do well with a carbon fiber AFO 8. DVT Prophylaxis: Lovenox 9. Analgesia: Percocet 10. Hypothyroidism: Synthroid 01/03/18 16:39
[2018-01-03] MEDS: Atorvastatin* 20 MG TAB PO SCH (21:04)
[2018-01-03] MEDS: Hydrocortisone TAB* 5 MG PO SCH (21:14)
[2018-01-03] MEDS: Mirtazapine TAB* 15 MG PO SCH (21:15)
[2018-01-04] MEDS: Methocarbamol TAB* 500 MG PO PRN ×3 (04:02→19:34)
[2018-01-04] MEDS: oxyCODONE/Acetamin 5/325 MG* TAB PO PRN ×4 (04:02→19:34)
[2018-01-04] MEDS: Levothyroxine TAB* 175 MCG TAB PO SCH (05:23)
[2018-01-04] MEDS ORDERED: Insulin LISPRO* FOR INSULIN PUMP SUBCUT SCH (09:00)
[2018-01-04] MEDS: Mometasone/Formoter 100/5 MDI INH SCH ×2 (09:25→21:45)
[2018-01-04] MEDS: ESCITALOPRAM 10 MG PO SCH (09:25)
[2018-01-04] MEDS: Enoxaparin(*) 40 MG/0.4 ML SYR SUBCUT SCH (09:25)
[2018-01-04] MEDS: Docusate CAP* 100 MG PO SCH ×2 (09:25→21:37)
[2018-01-04] MEDS: Furosemide TAB* 20 MG PO SCH (09:25)
[2018-01-04] MEDS: ACLIDINIUM MDI INH SCH ×2 (09:25→21:45)
[2018-01-04] MEDS: Hydrocortisone TAB* 10 MG PO SCH ×2 (09:25→11:57)
[2018-01-04] MEDS: Metoprolol Tartrate TAB* 25 MG PO SCH ×2 (09:35→21:37)
[2018-01-04] MEDS: Losartan TAB* 25 MG PO SCH (09:35)
[2018-01-04] MEDS: Ropinirole TAB* 0.5 MG TAB PO SCH ×3 (14:40→21:38)
--- NOTE | 2018-01-04 18:45 | PN ---
Progress Note Date of Service: 01/04/18 Note: FREDO SCHOFIELD was visited. Therapy notes read and reviewed. She complains of a lot of knee pain on the left side. I reviewed her records from [facility] and don't find a knee x-ray. I will order Current Medications: Active Medications Generic Name Dose Route Start Last Admin Trade Name Freq PRN Reason Stop Dose Admin Acetaminophen 650 mg 12/30/17 13:18 01/01/18 06:13 Tylenol Tab* PO 650 mg Q6H PRN Administration FEVER/PAIN Aclidinium [place] 1 puff 12/30/17 21:00 01/04/18 09:25 Jabari Valladares Mdi(Nf) INH 1 puff BID KELLY Administration Alprazolam 1 mg 12/30/17 13:55 Xanax Tab* PO BEDTIME PRN ANXIETY/INSOMNIA Atorvastatin Calcium 20 mg 12/30/17 21:00 01/03/18 21:04 Lipitor* PO 20 mg 2100 KELLY Administration Docusate Sodium 100 mg 12/30/17 21:00 01/04/18 09:25 Colace Cap* PO 100 mg BID KELLY Administration Enoxaparin Sodium 40 mg 12/31/17 09:00 01/04/18 09:25 Lovenox(*) SUBCUT 40 mg Q24H KELLY Administration Escitalopram Oxalate 15 mg 01/01/18 09:00 01/04/18 09:25 Lexapro (Nf) PO 15 mg DAILY KELLY Administration Furosemide 20 mg 12/31/17 09:00 01/04/18 09:25 Lasix Tab* PO 20 mg DAILY KELLY Administration Hydrocortisone 10 mg 12/31/17 09:00 01/04/18 11:57 Cortef Tab* PO 10 mg 0900,1200 KELLY Administration Hydrocortisone 2.5 mg 12/30/17 21:00 01/03/18 21:14 Cortef Tab* PO 2.5 mg 2100 KELLY Administration Insulin Human Lispro 0 units 01/04/18 09:00 Humalog* SUBCUT .SEE PROTOCOL KELLY Protocol Levalbuterol HCl 2 puff 12/30/17 13:58 12/31/17 21:27 Xopenex Hfa Inhaler* INH 2 puff Q4H PRN Administration SHORTNESS OF BREATH Levothyroxine Sodium 175 mcg 12/31/17 06:00 01/04/18 05:23 Synthroid Tab* PO 175 mcg 0600 KELLY Administration Losartan Potassium 100 mg 12/31/17 09:00 01/04/18 09:35 Cozaar Tab* PO 100 mg DAILY KELLY Administration Magnesium Hydroxide 30 ml 12/30/17 13:18 Milk Of Magnesia Liq* PO Q6H PRN CONSTIPATION Methocarbamol 1,000 mg 01/01/18 13:10 01/04/18 11:36 Robaxin Tab* PO 1,000 mg Q6H PRN Administration SPASMS Metoprolol Tartrate 25 mg 12/30/17 21:00 01/04/18 09:35 Lopressor Tab* PO 25 mg BID KELLY Administration Mirtazapine 15 mg 12/30/17 21:00 01/03/18 21:15 Remeron Tab* PO 15 mg BEDTIME KELLY Administration Mometasone Furoate/Formoterol Fumar 2 puff 12/30/17 21:00 01/04/18 09:25 Dulera 100/5 Mdi* INH 2 puff BID KELLY Administration Oxycodone/Acetaminophen 2 tab 01/02/18 11:15 01/04/18 12:41 Percocet 5/325 Tab* PO 2 tab Q4H PRN Administration PAIN - SEVERE Oxycodone/Acetaminophen 1 tab 01/02/18 11:16 Percocet 5/325 Tab* PO Q4H PRN PAIN - MODERATE TO SEVERE Ropinirole HCl 0.5 mg 12/30/17 19:00 01/03/18 19:17 Requip Tab* PO 0.5 mg 1900 KELLY Administration Ropinirole HCl 0.25 mg 12/30/17 22:00 01/04/18 14:40 Requip Tab* PO 0.25 mg 1500,2200 KELLY Administration Senna 2 tab 12/30/17 13:18 Senokot Tab* PO BEDTIME PRN CONSTIPATION Vital Signs: Vital Signs Temp Pulse Resp BP Pulse Ox 98.5 F 61 16 123/47 97 01/04/18 15:39 01/04/18 15:39 01/04/18 15:39 01/04/18 15:39 01/04/18 17:55 Lab Results: Laboratory Results - last 24 hr 01/03/18 01/04/18 01/04/18 21:30 07:30 16:23 POC Glucose (mg/dL) 148 H 173 H 142 H Exam: LUNGS: Clear HEART: reg rhythm ABDOMEN: Soft EXTREMITIES: Left leg wound clean. Left knee slightly swollen, some tenderness NEUROLOGIC: limited dorsiflexion Assessment/Plan: 1. Left hip fracture, S/P HAP: PT/OT 2. Morton's Disease: Cortef 3. Diabetes: Insulin pump 4. CAD/History of [place]: Cozaar/Lasix/Statin 5. COPD: Xopenex/Advair 6. RLS: Requip 7. DPN: Does not like braces. She may do well with a carbon fiber AFO 8. DVT Prophylaxis: Lovenox 9. Analgesia: Percocet 10. Hypothyroidism: Synthroid 11. Left knee pain: will order x-rays 01/03/18 16:39 01/04/18 18:46
--- NOTE | 2018-01-04 20:31 | RAD ---
INDICATION: Left knee pain after a fall December 27, 2017 COMPARISON: None TECHNIQUE: 4 view radiograph of the left knee. FINDINGS: The visualized bones are well-corticated and properly aligned. There is a mild degree of height loss of the medial compartment. There is no radiographic evidence of joint effusion. There is no acute fracture, dislocation or other focal bony abnormality. Incidental note is made of atherosclerotic calcification involving the distal SFA and popliteal arteries. IMPRESSION: 1. Mild degenerative changes involving the medial compartment without radiographically apparent acute fracture or dislocation. 2. Incidentally noted is calcified atherosclerosis of the visualized femoral popliteal arteries. Please correlate to any signs or symptoms of arterial deficiency. If the patient's symptoms persist, follow-up imaging is recommended.
[2018-01-04] MEDS: Mirtazapine TAB* 15 MG PO SCH (21:38)
[2018-01-04] MEDS: Hydrocortisone TAB* 5 MG PO SCH (21:38)
[2018-01-04] MEDS: Atorvastatin* 20 MG TAB PO SCH (21:38)
[2018-01-05] MEDS: oxyCODONE/Acetamin 5/325 MG* TAB PO PRN ×3 (01:55→09:43)
[2018-01-05] MEDS: Levothyroxine TAB* 175 MCG TAB PO SCH (05:45)
[2018-01-05] MEDS: ACLIDINIUM MDI INH SCH ×2 (08:15→20:57)
[2018-01-05] MEDS: Losartan TAB* 25 MG PO SCH (08:16)
[2018-01-05] MEDS: Hydrocortisone TAB* 10 MG PO SCH ×2 (08:16→12:59)
[2018-01-05] MEDS: ESCITALOPRAM 10 MG PO SCH (08:16)
[2018-01-05] MEDS: Methocarbamol TAB* 500 MG PO PRN ×2 (08:17→14:17)
[2018-01-05] MEDS: Furosemide TAB* 20 MG PO SCH (08:17)
[2018-01-05] MEDS: Metoprolol Tartrate TAB* 25 MG PO SCH ×2 (08:17→20:55)
[2018-01-05] MEDS: Docusate CAP* 100 MG PO SCH ×2 (08:17→20:55)
[2018-01-05] MEDS: Enoxaparin(*) 40 MG/0.4 ML SYR SUBCUT SCH (08:18)
[2018-01-05] MEDS: Mometasone/Formoter 100/5 MDI INH SCH ×2 (08:18→20:57)
--- NOTE | 2018-01-05 12:48 | PMRUTEAM ---
PMRU: Team Meeting Current Status: Nursing: Current Status Skin Deviations [Left Hip] Incision Skin Deviation Description [ drsg in place Left Hip] Physical Therapy: Current Status Bed Mobility Assistance Supervision,Not Tested Transfer Moblility Assistance Supervision Transfer/Bed Mobility Rolling Walker Recommended Devices Ambulation Assistance Supervision Ambulation Assistive Devices Rolling Walker Number of Feet Patient 75' Ambulated Ambulation Comment Pt. c/o pain L le with movement and WB Stairs Assistance Supervision Stairs Recommended Devices Two Rails Number of Stairs 5 steps Very painful for pt to do stairs. Curb Not Tested Objective Comments continues to work on stair mobitliy this session. patient demosntrate improving stance on LLE and improving weightshift and confidence, but contiues to have difficuty lifting RLE high enough in LLE stance to clear step height. will continue to work this skill. Occupational Therapy: Current Status Upper Body Dressing Independent Lower Body Dressing Ind with Adaptive Equip Bathing Ind with Adaptive Equip Toileting Ind with Adaptive Equip Toilet Transfer Ind with Adaptive Equip Shower Transfer Ind with Adaptive Equip Eating Independent Rec Therapy: Current Status Summary of Assessment and Pt. was open to conversation. Pt. states she Clinical Impression enjoys her life and likes to keep busy. Pt. was interested in continued leisure visits. Treatment Goals Pt. will engage in leisure activities while on the unit. Treatment Plan Provide RT services and encourage involvement. Social Work: Current Status Discharge Plan return home with home care svs and family support Potential for Family Training pt lives alone Anticipated Discharge Home Destination Discharge With home care svs and family support Nutrition: Current Status Monitoring Pt with hx T1DM, s/p L hip fx and s/p L hemiarthroplasty 12/27/17. Visited pt on PMRU. Pt reports good appetite, eating independently, no difficulty chewing/swallowing, no GI complaints. BMs 12/30, 01/02; bowel meds ordered. Variable BG noted as above; pt reports that these values are c /w values she gets at home. Pt also receiving Cortef in this setting. Pt uses an insulin pump at home and continues to use it here, monitoring FSBG and administering insulin as needed. Pt states that her BG can drop quickly if she "gets low," so she errs on the side of hyperglycemia. Pt follows with PCP Dr Krause, so anticipate pt receiving excellent care and monitoring. Reviewed consistent carb diet used here and explained menus . Recommend 3-4 servings (45-60 g) carb per meal. Pt verbalized understanding. No change to current diet intervention; will follow and remain involved as needed. Speech: Current Status Assessment No further skilled PANMAN interventions are indicated at this time Goals: Physical Therapy: Initial Goals Bed Mobility Assistance Independent Transfer Mobility Assistance Independent Transfer/Bed Mobility Rolling Walker Recommended Devices Ambulation Independent Ambulation Recommended Devices Rolling Walker Ambulation Distance 150 Stairs Assistance Independent Stair Recommended Devices Two Rails Number of Stairs 1 flight Physical Therapy: Updated Goals Bed Mobility Assistance Independent Transfer Mobility Assistance Independent Transfer/Bed Mobility Rolling Walker Recommended Devices Ambulation Assistance Independent Ambulation Assistive Devices Rolling Walker Ambulation Distance (ft) 150 Stairs Assistance Independent Stairs Recommended Devices One Rail Number of Stairs 16 Occupational Therapy: Initial Goals Goals to be Completed in (Days 7-10 ) Upper Body Bathing Routine Independent Lower Body Bathing Routine Modified Independent with Upper Body Dressing Routine Independent Lower Body Dressing Routine Modified Independent with Toilet Hygeine and Clothing Modified Independent with Management Routine Toilet Transfer Routine Modified Independent with Step-In Shower Transfer Modified Independent with Routine Functional Transfers for ADL Modified Independent with Grooming Routine Independent Feeding Routine Independent Nutrition: Goals Intervention Goals 1. Intake will remain adequate to meet needs for post-op healing 2. BG will remain adequately controlled within pt' s baseline 3. Pt will maintain regular bowel pattern without constipation r/t pain meds Social Work: Goals Discharge Plan return home with home care svs and family support Potential for Family Training pt lives alone Anticipated Discharge Home Destination Discharge With home care svs and family support Care Plan: Care Plan ADL's - Improve/Maintain Start: 12/31/17 01:07 Freq: DAILY@1200 Status: Active Target: Protocol: Activity Type Activity Date Activity User E-Sign Co-Sign Detail Recorded Client Recorded Date Recorded By Document 01/05/18 11:12 [id number] [email or web address] 01/05/18 11:12 [id number] 01/05/18 11:12 PMRU Outcome: ADL's/ADL Transfers Orders/Interventions Occupational Therapy Evaluation & Treatment Device Yes Patient to receive OT 5x/wk for 60-120 Therex min/day Self Care Management Group Therapy UE/LE ADL's with Assist Yes: mod I ADL Transfers with Assist Yes: mod I Toileting: Transfers,Clothing Management Yes: mod I ,Hygeine w/Assist Progression Toward Outcome/Goals Progressing Outcome/Goals Met Pt has met OT goals. Remains admitted d/t inability to navigate stairs . Cardiovascular- Improve/Maintain Start: 12/31/17 01:07 Freq: DAILY@1200 Status: Active Target: Protocol: Activity Type Activity Date Activity User E-Sign Co-Sign Detail Recorded Client Recorded Date Recorded By Document 01/05/18 11:49 [id number] [email or web address] 01/05/18 11:49 [id number] 01/05/18 11:49 PMRU Outcome: Cardiovascular Vital Signs q Shift for 48hrs Then BID Yes Daily Weight Ordered No Current Cardiovascular Outcome/Goal Maintain/ Achieve Baseline HR, BP , Perfusion Free of Abnormal Cardiac Symptoms Progression Toward Outcome/Goal Progressing Communication-Improve/Maintain Start: 12/31/17 01:07 Freq: DAILY@1200 Status: Active Target: Protocol: Activity Type Activity Date Activity User E-Sign Co-Sign Detail Recorded Client Recorded Date Recorded By Document 01/05/18 11:49 [id number] [email or web address] 01/05/18 11:49 [id number] 01/05/18 11:49 PMRU Outcome: Communication/Cognitive Status Outcome/Goals Makes Needs Known Effectively Progression Toward Outcomes/Goals Progressing Discharge Planning - Improve/Maintain Start: 12/31/17 01:07 Freq: DAILY@1200 Status: Active Target: Protocol: Activity Type Activity Date Activity User E-Sign Co-Sign Detail Recorded Client Recorded Date Recorded By Document 01/05/18 11:49 [id number] [email or web address] 01/05/18 11:49 [id number] 01/05/18 11:49 PMRU Outcome: Discharge Planning Identify Patient Needs yes Update Patient Family No Outcome/Goals Demonstrates Understanding of Discharge Plan Progression Toward Outcome/Goals Progressing Education-Improve/Maintain Start: 12/31/17 01:07 Freq: DAILY@1200 Status: Active Target: Protocol: Activity Type Activity Date Activity User E-Sign Co-Sign Detail Recorded Client Recorded Date Recorded By Document 01/05/18 11:49 [id number] [email or web address] 01/05/18 11:49 [id number] 01/05/18 11:49 PMRU Outcome: Education Outcome/Goals Demonstrate/ Verbalize Understanding of Written Discharge Instructions Demonstrates Skills Encourage Questions Progression Toward Outcome/Goals Progressing /GI-Improve/Maintain Start: 12/31/17 01:07 Freq: DAILY@1200 Status: Active Target: Protocol: Activity Type Activity Date Activity User E-Sign Co-Sign Detail Recorded Client Recorded Date Recorded By Document 01/05/18 11:49 [id number] [email or web address] 01/05/18 11:49 [id number] 01/05/18 11:49 PMRU Outcome: Genitourinary/ Gastrointestinal Genitourinary- Outcome/Goals Maintain/ Achieve Urinary Continence Remain Free of Hospital- Acquired UTI Gastrointestinal-Outcome/Goals Maintain/ Achieve Bowel Regularity in Accordance with Pt's Baseline Prevent Constipation Progression Toward Outcome/Goals - Progressing Progression Toward Outcome/Goals - GI Progressing Metabolic Status- Improve/Maintain Start: 12/31/17 01:07 Freq: DAILY@1200 Status: Complete Target: Protocol: Activity Type Activity Date Activity User E-Sign Co-Sign Detail Recorded Client Recorded Date Recorded By Document 01/04/18 18:07 [id number] [email or web address] 01/04/18 18:08 [id number] 01/04/18 18:07 PMRU Outcome: Metabolic Status Have Fingersticks Been Ordered Yes Fingerstick Order Frequency AC & HS Outcome/Goals Maintain/ Improve Metabolic Status Outcome/Goals Met Maintain/ Improve Metabolic Status Demonstrate Knowledge of Prevention/ Treatment of Metabolic Imbalances Mobility- Improve/Maintain Start: 12/30/17 18:17 Freq: DAILY@1200 Status: Active Target: Protocol: Activity Type Activity Date Activity User E-Sign Co-Sign Detail Recorded Client Recorded Date Recorded By Document 01/04/18 12:32 [id number] [email or web address] 01/04/18 12:32 [id number] 01/04/18 12:32 PMRU Outcome: Mobility Physical Therapy Evaluation and Yes Treatment Activity OOB with Assistance Yes WBAT Yes Device Yes Assistance Yes Patient to be seen 5x/wk for 60-120 min/ Therex day for: Mobility Training Gait Training W/C Mobility Balance Outcome/Goals Maintain/ Achieve Baseline Mobility Status Improve Mobility Status Demonstrates Proper Use of Assistive Devices Free from Complications of Immobility Progression Toward Outcome/Goals Progressing Bed Mobility Yes: independent Transfers Yes: independent with rolling walker. Gait x ft Yes: independent with rolling walker 150' Up/Down Stairs Yes: independent up/ down 10 stairs with 2 rails. Neurological- Improve/Maintain Start: 12/31/17 01:07 Freq: DAILY@1200 Status: Complete Target: Protocol: Activity Type Activity Date Activity User E-Sign Co-Sign Detail Recorded Client Recorded Date Recorded By Document 01/04/18 18:07 [id number] [email or web address] 01/04/18 18:08 [id number] 01/04/18 18:07 PMRU Outcome: Neurological Weakness/Aphasia Weakness Left Side Outcome/Goals Maintain/ Achieve Baseline Neurological Status Maintain/ Improve Strength/ROM Outcome/Goals Met Maintain/ Achieve Baseline Neurological Status Maintain/ Improve Strength/ROM Pain/Comfort- Improve/Maintain Start: 12/31/17 01:07 Freq: DAILY@1200 Status: Active Target: Protocol: Activity Type Activity Date Activity User E-Sign Co-Sign Detail Recorded Client Recorded Date Recorded By Document 01/05/18 11:49 [id number] [email or web address] 01/05/18 11:49 [id number] 01/05/18 11:49 PMRU Outcome: Pain/Comfort Outcome/Goals Demonstrates Knowledge and Use of Available Comfort Measures Achieves Acceptable Comfort/Pain Level as Determined by Patient/Condit Maintain Comfort Level Allowing Patient to Fully Participate in Rehab Progression Toward Outcome/Goals Progressing Outcome/Goals Met Comment Percocet and Robaxin administered as able Safety- Improve/Maintain Start: 12/31/17 01:07 Freq: DAILY@1200 Status: Complete Target: Protocol: Activity Type Activity Date Activity User E-Sign Co-Sign Detail Recorded Client Recorded Date Recorded By Document 01/04/18 18:07 [id number] [email or web address] 01/04/18 18:08 [id number] 01/04/18 18:07 PMRU Outcome: Safety Outcome/Goals Remain Free of Injury or Harm Prevent Falls/ Injury Outcome/Goals Met Remain Free of Injury or Harm Skin- Improve/Maintain Start: 12/31/17 01:07 Freq: DAILY@1200 Status: Active Target: Protocol: Activity Type Activity Date Activity User E-Sign Co-Sign Detail Recorded Client Recorded Date Recorded By Document 01/05/18 11:49 [id number] [email or web address] 01/05/18 11:49 [id number] 01/05/18 11:49 PMRU Outcome: Skin Skin Risk Level Medium Skin Orders Dressing Change Heels Off Bed Outcome/Goals Maintain/ Improve Skin Intergrity Surgical Incisions Healing Progression Toward Outcome/Goals Progressing Medicine Note: Length of Stay: 2 days Anticipated Discharge Destination: Home Tentative Discharge Date: 01/07/18 Discharged to: Home
[2018-01-05] MEDS: oxyCODONE TAB* 5 MG TAB PO PRN ×3 (13:23→21:31)
[2018-01-05] MEDS: Ropinirole TAB* 0.5 MG TAB PO SCH ×3 (14:16→20:56)
--- NOTE | 2018-01-05 16:34 | PN ---
Progress Note Date of Service: 01/05/18 Note: FREDO SCHOFIELD was visited. Therapy notes read and reviewed. She was discussed in interdisciplinary team rounds. She is having pain down her chen which made be blood moving down the leg. Her knee x-ray was unrevealing. Current Medications: Active Medications Generic Name Dose Route Start Last Admin Trade Name Freq PRN Reason Stop Dose Admin Acetaminophen 650 mg 12/30/17 13:18 01/01/18 06:13 Tylenol Tab* PO 650 mg Q6H PRN Administration FEVER/PAIN Aclidinium [place] 1 puff 12/30/17 21:00 01/05/18 08:15 Jabari Valladares Mdi(Nf) INH 1 puff BID KELLY Administration Alprazolam 1 mg 12/30/17 13:55 Xanax Tab* PO BEDTIME PRN ANXIETY/INSOMNIA Atorvastatin Calcium 20 mg 12/30/17 21:00 01/04/18 21:38 Lipitor* PO 20 mg 2100 KELLY Administration Docusate Sodium 100 mg 12/30/17 21:00 01/05/18 08:17 Colace Cap* PO 100 mg BID KELLY Administration Enoxaparin Sodium 40 mg 12/31/17 09:00 01/05/18 08:18 Lovenox(*) SUBCUT 40 mg Q24H KELLY Administration Escitalopram Oxalate 15 mg 01/01/18 09:00 01/05/18 08:16 Lexapro (Nf) PO 15 mg DAILY KELLY Administration Furosemide 20 mg 12/31/17 09:00 01/05/18 08:17 Lasix Tab* PO 20 mg DAILY KELLY Administration Hydrocortisone 10 mg 12/31/17 09:00 01/05/18 12:59 Cortef Tab* PO 10 mg 0900,1200 KELLY Administration Hydrocortisone 2.5 mg 12/30/17 21:00 01/04/18 21:38 Cortef Tab* PO 2.5 mg 2100 KELLY Administration Insulin Human Lispro 0 units 01/04/18 09:00 Humalog* SUBCUT .SEE PROTOCOL KELLY Protocol Levalbuterol HCl 2 puff 12/30/17 13:58 12/31/17 21:27 Xopenex Hfa Inhaler* INH 2 puff Q4H PRN Administration SHORTNESS OF BREATH Levothyroxine Sodium 175 mcg 12/31/17 06:00 01/05/18 05:45 Synthroid Tab* PO 175 mcg 0600 KELLY Administration Losartan Potassium 100 mg 12/31/17 09:00 01/05/18 08:16 Cozaar Tab* PO 100 mg DAILY KELLY Administration Magnesium Hydroxide 30 ml 12/30/17 13:18 Milk Of Magnesia Liq* PO Q6H PRN CONSTIPATION Methocarbamol 1,000 mg 01/01/18 13:10 01/05/18 14:17 Robaxin Tab* PO 1,000 mg Q6H PRN Administration SPASMS Metoprolol Tartrate 25 mg 12/30/17 21:00 01/05/18 08:17 Lopressor Tab* PO 25 mg BID KELLY Administration Mirtazapine 15 mg 12/30/17 21:00 01/04/18 21:38 Remeron Tab* PO 15 mg BEDTIME KELLY Administration Mometasone Furoate/Formoterol Fumar 2 puff 12/30/17 21:00 01/05/18 08:18 Dulera 100/5 Mdi* INH 2 puff BID KELLY Administration Oxycodone HCl 15 mg 01/05/18 12:45 01/05/18 13:23 Roxycodone Tab* PO 15 mg Q4H PRN Administration PAIN - UNRELIEVED Oxycodone/Acetaminophen 2 tab 01/02/18 11:15 01/05/18 09:43 Percocet 5/325 Tab* PO 2 tab Q4H PRN Administration PAIN - SEVERE Oxycodone/Acetaminophen 1 tab 01/02/18 11:16 Percocet 5/325 Tab* PO Q4H PRN PAIN - MODERATE TO SEVERE Ropinirole HCl 0.5 mg 12/30/17 19:00 01/04/18 19:33 Requip Tab* PO 0.5 mg 1900 KELLY Administration Ropinirole HCl 0.25 mg 12/30/17 22:00 01/05/18 14:16 Requip Tab* PO 0.25 mg 1500,2200 KELLY Administration Senna 2 tab 12/30/17 13:18 Senokot Tab* PO BEDTIME PRN CONSTIPATION Vital Signs: Vital Signs Temp Pulse Resp BP Pulse Ox 98.5 F 57 18 146/51 97 01/05/18 16:04 01/05/18 16:04 01/05/18 16:20 01/05/18 16:04 01/05/18 16:04 Lab Results: Laboratory Results - last 24 hr 01/04/18 01/04/18 01/04/18 07:30 16:23 21:38 POC Glucose (mg/dL) 173 H 142 H 170 H 01/05/18 01/05/18 08:01 12:18 POC Glucose (mg/dL) 199 H 205 H Exam: LUNGS: Clear HEART: reg rhythm ABDOMEN: Soft EXTREMITIES: Left leg wound clean. Left knee slightly swollen, some tenderness NEUROLOGIC: limited dorsiflexion Assessment/Plan: 1. Left hip fracture, S/P HAP: PT/OT 2. Sac's Disease: Cortef 3. Diabetes: Insulin pump 4. CAD/History of [place]: Cozaar/Lasix/Statin 5. COPD: Xopenex/Advair 6. RLS: Requip 7. DPN: Does not like braces. She may do well with a carbon fiber AFO 8. DVT Prophylaxis: Lovenox 9. Analgesia: Percocet 10. Hypothyroidism: Synthroid 11. Left knee pain: likely blood moving down leg 01/05/18 16:35
[2018-01-05] MEDS: Atorvastatin* 20 MG TAB PO SCH (20:55)
[2018-01-05] MEDS: Hydrocortisone TAB* 5 MG PO SCH (20:55)
[2018-01-05] MEDS: Mirtazapine TAB* 15 MG PO SCH (21:31)
[2018-01-06] MEDS: oxyCODONE TAB* 5 MG TAB PO PRN ×5 (02:15→21:13)
[2018-01-06] MEDS: Levothyroxine TAB* 175 MCG TAB PO SCH (05:52)
[2018-01-06] MEDS: oxyCODONE/Acetamin 5/325 MG* TAB PO PRN ×2 (05:53→14:51)
[2018-01-06] MEDS: ESCITALOPRAM 10 MG PO SCH (08:16)
[2018-01-06] MEDS: Metoprolol Tartrate TAB* 25 MG PO SCH ×2 (08:16→21:10)
[2018-01-06] MEDS: Furosemide TAB* 20 MG PO SCH (08:16)
[2018-01-06] MEDS: Losartan TAB* 25 MG PO SCH (08:16)
[2018-01-06] MEDS: Docusate CAP* 100 MG PO SCH ×2 (08:16→21:09)
[2018-01-06] MEDS: Hydrocortisone TAB* 10 MG PO SCH ×2 (08:17→11:49)
[2018-01-06] MEDS: Enoxaparin(*) 40 MG/0.4 ML SYR SUBCUT SCH (08:22)
[2018-01-06] MEDS: ACLIDINIUM MDI INH SCH ×2 (08:24→21:16)
[2018-01-06] MEDS: Mometasone/Formoter 100/5 MDI INH SCH ×2 (08:27→21:10)
[2018-01-06] MEDS: Methocarbamol TAB* 500 MG PO PRN ×2 (09:14→21:14)
[2018-01-06] MEDS: Ropinirole TAB* 0.5 MG TAB PO SCH ×3 (14:49→21:12)
--- NOTE | 2018-01-06 19:52 | PN ---
Progress Note Date of Service: 01/06/18 Note: FREDO SCHOFIELD was visited. Therapy notes read and reviewed. She was able to demonstrate proficiency on the stairs. Will go home tomorrow. Will send home with Oxycodone 15 mg. She had questions about driving-I told her she needs to be cleared by orthopedics to drive. Current Medications: Active Medications Generic Name Dose Route Start Last Admin Trade Name Freq PRN Reason Stop Dose Admin Acetaminophen 650 mg 12/30/17 13:18 01/01/18 06:13 Tylenol Tab* PO 650 mg Q6H PRN Administration FEVER/PAIN Aclidinium [place] 1 puff 12/30/17 21:00 01/06/18 08:24 Jabari Valladares Mdi(Nf) INH 1 puff BID KELLY Administration Alprazolam 1 mg 12/30/17 13:55 Xanax Tab* PO BEDTIME PRN ANXIETY/INSOMNIA Atorvastatin Calcium 20 mg 12/30/17 21:00 01/05/18 20:55 Lipitor* PO 20 mg 2100 KELLY Administration Docusate Sodium 100 mg 12/30/17 21:00 01/06/18 08:16 Colace Cap* PO 100 mg BID KELLY Administration Enoxaparin Sodium 40 mg 12/31/17 09:00 01/06/18 08:22 Lovenox(*) SUBCUT 40 mg Q24H KELLY Administration Escitalopram Oxalate 15 mg 01/01/18 09:00 01/06/18 08:16 Lexapro (Nf) PO 15 mg DAILY KELLY Administration Furosemide 20 mg 12/31/17 09:00 01/06/18 08:16 Lasix Tab* PO 20 mg DAILY KELLY Administration Hydrocortisone 10 mg 12/31/17 09:00 01/06/18 11:49 Cortef Tab* PO 10 mg 0900,1200 KELLY Administration Hydrocortisone 2.5 mg 12/30/17 21:00 01/05/18 20:55 Cortef Tab* PO 2.5 mg 2100 KELLY Administration Insulin Human Lispro 0 units 01/04/18 09:00 Humalog* SUBCUT .SEE PROTOCOL KELLY Protocol Levalbuterol HCl 2 puff 12/30/17 13:58 12/31/17 21:27 Xopenex Hfa Inhaler* INH 2 puff Q4H PRN Administration SHORTNESS OF BREATH Levothyroxine Sodium 175 mcg 12/31/17 06:00 01/06/18 05:52 Synthroid Tab* PO 175 mcg 0600 KELLY Administration Losartan Potassium 100 mg 12/31/17 09:00 01/06/18 08:16 Cozaar Tab* PO 100 mg DAILY KELLY Administration Magnesium Hydroxide 30 ml 12/30/17 13:18 Milk Of Magnesia Liq* PO Q6H PRN CONSTIPATION Methocarbamol 1,000 mg 01/01/18 13:10 01/06/18 09:14 Robaxin Tab* PO 1,000 mg Q6H PRN Administration SPASMS Metoprolol Tartrate 25 mg 12/30/17 21:00 01/06/18 08:16 Lopressor Tab* PO 25 mg BID KELLY Administration Mirtazapine 15 mg 12/30/17 21:00 01/05/18 21:31 Remeron Tab* PO 15 mg BEDTIME KELLY Administration Mometasone Furoate/Formoterol Fumar 2 puff 12/30/17 21:00 01/06/18 08:27 Dulera 100/5 Mdi* INH 2 puff BID KELLY Administration Oxycodone HCl 15 mg 01/05/18 12:45 01/06/18 17:30 Roxycodone Tab* PO 15 mg Q4H PRN Administration PAIN - UNRELIEVED Oxycodone/Acetaminophen 2 tab 01/02/18 11:15 01/06/18 14:51 Percocet 5/325 Tab* PO 2 tab Q4H PRN Administration PAIN - SEVERE Oxycodone/Acetaminophen 1 tab 01/02/18 11:16 Percocet 5/325 Tab* PO Q4H PRN PAIN - MODERATE TO SEVERE Ropinirole HCl 0.5 mg 12/30/17 19:00 01/06/18 19:01 Requip Tab* PO 0.5 mg 1900 KELLY Administration Ropinirole HCl 0.25 mg 12/30/17 22:00 01/06/18 14:49 Requip Tab* PO 0.25 mg 1500,2200 KELLY Administration Senna 2 tab 12/30/17 13:18 Senokot Tab* PO BEDTIME PRN CONSTIPATION Vital Signs: Vital Signs Temp Pulse Resp BP Pulse Ox 98.5 F 59 18 120/49 99 01/06/18 16:15 01/06/18 16:15 01/06/18 17:30 01/06/18 16:15 01/06/18 16:15 Lab Results: Laboratory Results - last 24 hr 01/05/18 01/06/18 01/06/18 20:27 07:47 11:50 POC Glucose (mg/dL) 191 H 122 H 129 H 01/06/18 16:53 POC Glucose (mg/dL) 219 H Exam: LUNGS: Clear HEART: reg rhythm ABDOMEN: Soft EXTREMITIES: Left leg wound clean. Left knee slightly swollen, some tenderness NEUROLOGIC: limited dorsiflexion Assessment/Plan: 1. Left hip fracture, S/P HAP: PT/OT 2. Energy's Disease: Cortef 3. Diabetes: Insulin pump 4. CAD/History of [place]: Cozaar/Lasix/Statin 5. COPD: Xopenex/Advair 6. RLS: Requip 7. DPN: Does not like braces. She may do well with a carbon fiber AFO 8. DVT Prophylaxis: Lovenox 9. Analgesia: Percocet 10. Hypothyroidism: Synthroid 11. Left knee pain: likely blood moving down leg 01/06/18 19:52
[2018-01-06] MEDS: Atorvastatin* 20 MG TAB PO SCH (21:08)
[2018-01-06] MEDS: Hydrocortisone TAB* 5 MG PO SCH (21:09)
[2018-01-06] MEDS: Mirtazapine TAB* 15 MG PO SCH (21:10)
[2018-01-07] MEDS: oxyCODONE TAB* 5 MG TAB PO PRN (02:51)
[2018-01-07] MEDS: Methocarbamol TAB* 500 MG PO PRN ×2 (02:56→10:02)
[2018-01-07] MEDS: Levothyroxine TAB* 175 MCG TAB PO SCH (06:27)
[2018-01-07] MEDS: oxyCODONE/Acetamin 5/325 MG* TAB PO PRN ×2 (06:27→10:04)
[2018-01-07 06:39] VITALS: BP 144/70
[2018-01-07] MEDS: ACLIDINIUM MDI INH SCH (08:25)
[2018-01-07] MEDS: Enoxaparin(*) 40 MG/0.4 ML SYR SUBCUT SCH (08:27)
[2018-01-07] MEDS: ESCITALOPRAM 10 MG PO SCH (08:27)
[2018-01-07] MEDS: Docusate CAP* 100 MG PO SCH (08:27)
[2018-01-07] MEDS: Hydrocortisone TAB* 10 MG PO SCH (08:28)
[2018-01-07] MEDS: Metoprolol Tartrate TAB* 25 MG PO SCH (08:28)
[2018-01-07] MEDS: Furosemide TAB* 20 MG PO SCH (08:28)
[2018-01-07] MEDS: Losartan TAB* 25 MG PO SCH (08:28)
[2018-01-07] MEDS: Mometasone/Formoter 100/5 MDI INH SCH (08:29)
--- NOTE | 2018-01-08 08:49 | DS ---
CC: Dr. Hector Krause * DISCHARGE SUMMARY: DATE OF ADMISSION: 12/30/17 DATE OF DISCHARGE: 01/07/18 DISCHARGE DIAGNOSES: 1. Left hip fracture. 2. Tho's disease. 3. Diabetes mellitus. 4. Diabetic peripheral neuropathy. 5. Coronary artery disease, history of myocardial infarction. 6. Chronic obstructive pulmonary disease. 7. Restless leg syndrome. 8. Hypothyroidism. HISTORY OF ILLNESS AND HOSPITAL COURSE: For a complete history of the events leading up to her rehab stay, please see the history and physical dictated by me on 12/30/17. While on the rehab unit, the patient was maintained on Lovenox for DVT prophylaxis. Otherwise, she remained medically stable. Her pain was fairly well controlled. As she began to do more, however, her leg became more painful. Her pain medications were changed from [place] to oxycodone. The patient otherwise was medically stable. She was seen by Physical Therapy and Occupational Therapy and made good gains with both disciplines. With Physical Therapy at the time of admission, the patient required mod assist to transfer. She was min assist to ambulate about 15 feet. With Occupational Therapy at the time of admission, the patient required max assist for lower body dressing, supervision for upper body dressing , mod assist for toileting, min assist for toilet transfers. By the time of discharge, the patient was independent in transfers, independent ambulating 150 feet with a two-wheeled walker, independent going up and down a flight of stairs. She was independent with her activities of daily living including dressing and toileting. The patient was discharged home on 01/07/18. DISCHARGE DIET: Regular. DISCHARGE MEDICATIONS: Included: 1. Lipitor 20 mg daily. 2. Xanax 1 mg at bedtime as needed. 3. Lexapro 15 mg daily. 4. Lasix 20 mg daily. 5. Cortef 10 mg at 9 a.m. and noon, 2.5 mg at 9 p.m. 6. Xopenex inhaler two puffs every 4 hours as needed. 7. Synthroid 175 mcg daily. 8. Cozaar 100 mg daily. 9. Lopressor 25 mg twice daily. 10. Remeron 15 mg at bedtime. 11. Requip 0.25 mg at 3 p.m. and 10 p.m., 0.5 mg at 7 p.m. 12. Oxycodone tablets 15 mg every 4 hours as needed. 13. Robaxin 1000 mg every 6 hours as needed. 14. Aspirin 81 mg daily. 15. She also has an insulin pump through which she receives insulin injections continuously. SERVICES AFTER DISCHARGE: Through the visiting nurse service, she will have home nursing, home physical therapy and a home health aide. FOLLOWUP: Follow up with Dr. Hector Krause, her primary care doctor, as well as with her orthopedic surgery office on 01/13/18. Please note - the patient does not like to wear ankle foot orthoses, so she did not wear them while on the rehab unit. [id number]/[facility] #: [id number] MTDD
== END 2018-01-07 11:20 | disposition home health service (06) | DRG 860 ==
LOC: PMRU 13:15
PROVIDERS: ADMIT Physical Medicine & Rehabilitation; ATTEND Physical Medicine & Rehabilitation
PROC: F07Z5ZZ Bed Mobility Treatment (ICD-10-PCS; principal; 2017-12-30)
PROC: F07Z9ZZ Gait Training/Functional Ambulation Treatment (ICD-10-PCS; 2017-12-30)
PROC: F07Z8ZZ Transfer Training Treatment (ICD-10-PCS; 2017-12-30)
PROC: F08Z0ZZ Bathing/Showering Techniques Treatment (ICD-10-PCS; 2017-12-30)
PROC: F08Z1ZZ Dressing Techniques Treatment (ICD-10-PCS; 2017-12-30)
PROC: F08Z3ZZ Feeding/Eating Treatment (ICD-10-PCS; 2017-12-30)
DX: S72.002D Fracture of unspecified part of neck of left femur, subsequent encounter for closed fracture with routine healing (principal); E27.1 Primary adrenocortical insufficiency; W18.09XD Striking against other object with subsequent fall, subsequent encounter; Z47.1 Aftercare following joint replacement surgery; Z96.642 Presence of left artificial hip joint; E11.42 Type 2 diabetes mellitus with diabetic polyneuropathy; I25.10 Atherosclerotic heart disease of native coronary artery without angina pectoris; J44.9 Chronic obstructive pulmonary disease, unspecified; G25.81 Restless legs syndrome; E03.9 Hypothyroidism, unspecified; E11.319 Type 2 diabetes mellitus with unspecified diabetic retinopathy without macular edema; M25.562 Pain in left knee; J45.909 Unspecified asthma, uncomplicated; Z79.01 Long term (current) use of anticoagulants; I25.2 Old myocardial infarction; Z79.899 Other long term (current) drug therapy; Z88.8 Allergy status to other drugs, medicaments and biological substances; Z79.4 Long term (current) use of insulin; Z96.41 Presence of insulin pump (external) (internal)
CPT/HCPCS: 36415; 80053; 85025; A9270-GY; J1650

== ENCOUNTER 2019-12-04 17:03 | Emergency (ER) | payer BC ==
[2019-12-04 18:31] VITALS: BP 146/56
--- NOTE | 2019-12-04 18:39 | UC ---
Minor Trauma HPI - HPI Summary HPI Summary: 64-year-old female who has a history of drop foot because of diabetic neuropathy was walking today at home when she tripped on her carpet and turned both feet with toes underneath her. She complains of pain to the left toes and the dorsum of the right foot. She also fell onto her right side injuring her right proximal humerus. She states she thinks she may have hit her head but there was no loss of consciousness. This happened at 9 AM today. She's had no change in mental status and no vomiting. Denies any neck pain. - History of Current Complaint Chief Complaint: UCLowerExtremity Stated Complaint: S/P FALL, BILATERAL FOOT INJURY Time Seen by Provider: 12/04/19 18:21 Hx Obtained From: Patient ?: No Onset/Duration: Sudden Onset, Lasting Hours Onset Of Pain: Immediate Severity Initially: Moderate Severity Currently: Moderate Pain Intensity: 9 Mechanism Of Injury: Fall From A Standing Position Aggravating Factor(s): Ambulation, Movement Alleviating Factor(s): Nothing Associated Signs And Symptoms: Positive: Ecchymosis - Bruising to her right upper arm.. Negative: Loss Of Consciousness - Allergies/Home Medications Allergies/Adverse Reactions: Allergies Allergy/AdvReac Type Severity Reaction Status Date / Time ofloxacin Allergy Severe Swelling Verified 12/04/19 18:19 ramipril AdvReac Mild Coughing Verified 12/04/19 18:19 Home Medications: Home Medications Hydrocortisone [Cortef] 5 mg PO TID 11/10/16 [History Confirmed 12/04/19] Aspirin EC TAB* [Ecotrin EC Low Dose 81 MG*] 81 mg PO BID 05/05/17 [History Confirmed 12/04/19] Glucagon,Human Recombinant [Glucagon Emergency Kit] 1 mg INJ ONCE PRN 05/05/17 [ History Confirmed 12/04/19] rOPINIRole TAB* [Requip TAB*] 0.25 mg PO TID 05/05/17 [History Confirmed ] Fludrocortisone Acetate TAB* [Florinef TAB*] 0.1 mg PO DAILY #30 tab 05/07/17 [ Rx Confirmed 12/04/19] Ascorbic Acid [Vitamin C] 1,000 mg PO DAILY 12/30/17 [History Confirmed 12/04/19 ] Mirtazapine [Remeron] 15 mg PO BEDTIME 12/30/17 [History Confirmed 12/04/19] Multivitamin [Multiple Vitamins] 1 tab PO DAILY 12/30/17 [History Confirmed ] Polyethylene Glycol 3350 [Miralax] 17 gm PO DAILY 12/30/17 [History Confirmed ] Temazepam [Restoril] 15 mg PO BEDTIME PRN 12/30/17 [History Confirmed 12/04/19] Levalbuterol HFA INHALER* [Xopenex Hfa Inhaler*] 2 puff INH Q4H PRN mdi [Rx Confirmed 12/04/19] Atorvastatin* [Lipitor*] 80 mg PO QPM 12/04/19 [History Confirmed 12/04/19] Escitalopram * [Lexapro 10 mg (NF)] 10 mg PO DAILY 12/04/19 [History Confirmed 12/04/19] Ezetimibe TAB* [Zetia TAB*] 10 mg PO BEDTIME 12/04/19 [History Confirmed ] Fluticasone/Umeclidin/Vilanter [Trelegy Ellipta 100-62.5-25] 1 inh DAILY [History Confirmed 12/04/19] Furosemide TAB* [Lasix TAB*] 20 mg PO BID 12/04/19 [History Confirmed 12/04/19] Insulin Aspart (Niacinamide) [Fiasp 100 Unit/ml 10 ML VIAL] 1 dose SUBCUT DAILY PRN 12/04/19 [History Confirmed 12/04/19] Levothyroxine TAB* [Synthroid TAB*] 200 mcg PO DAILY 12/04/19 [History Confirmed 12/04/19] Losartan TAB* [Cozaar TAB*] 100 mg PO BEDTIME 12/04/19 [History Confirmed ] Metoprolol Tartrate TAB* [Lopressor TAB*] 50 mg PO BID 12/04/19 [History Confirmed 12/04/19] Teriparatide [Forteo] 20 mcg SC DAILY 12/04/19 [History Confirmed 12/04/19] Vitamin D3 4000 Iu 4,000 i.u. BEDTIME 12/04/19 [History Confirmed 12/04/19] Zinc 50 mg PO DAILY 12/04/19 [History Confirmed 12/04/19] amLODIPine TAB* [Norvasc 5 mg TAB*] 10 mg PO DAILY 12/04/19 [History Confirmed 12/04/19] PMH/Surg Hx/FS Hx/Imm Hx Previously Healthy: Yes Endocrine History: Diabetes, Thyroid Disease Respiratory History: COPD - Surgical History Surgical History: Yes Surgery Procedure, Year, and Place: C SECTION X2, CATARACTS BILATERAL, APPENDECTOMY, TONSILECTOMY,EAR TUBES; RETINA REATTACHMENT W/ NO IMPLANTS,, QUAD BIPASS, TUBES TIED. left hip replacement - Family History Known Family History: Positive: None Negative: Other - Breast CA - Social History Occupation: Unemployed Alcohol Use: Weekly Alcohol Amount: 2 beers /week Substance Use Type: None Smoking Status (MU): Former Smoker Type: Cigarettes Have You Smoked in the Last Year: No When Did the Patient Quit Smoking/Using Tobacco: 15 years agao - Immunization History Most Recent Influenza Vaccination: 2016 Most Recent Pneumonia Vaccination: within last 10 years Review of Systems All Other Systems Reviewed And Are Negative: Yes Skin: Positive: Bruising - Bruising to right upper arm. Mild bruising to the dorsum of her right foot. Mild bruising to the base of her left toes. Musculoskeletal: Positive: Other: - Pain to right upper arm, dorsum of right foot and toes of the left foot. Is Patient Immunocompromised?: No Physical Exam Triage Information Reviewed: Yes Appearance: Well-Appearing, No Pain Distress, Well-Nourished Vital Signs: Initial Vital Signs Temp 97.6 F 12/04/19 18:20 Pulse 65 12/04/19 18:20 Resp 18 12/04/19 18:20 BP 146/56 12/04/19 18:20 Pulse Ox 97 12/04/19 18:20 Vital Signs Reviewed: Yes Neck: Positive: Supple, Nontender - C-spine nontender Respiratory: Positive: Chest non-tender, Lungs clear, Normal breath sounds, No respiratory distress Cardiovascular: Positive: RRR, No Murmur, Pulses Normal, Brisk Capillary Refill Musculoskeletal: Positive: Strength Intact, ROM Intact, Other: - Patient normally has mild edema to her ankles and feet. She has good peripheral pulses , capillary refill. She has decreased neuro sensation because of her diabetic neuropathy. Achilles is intact. There is no deformity or erythema present. The right upper humerus has a bruise present approximately 5.0 cm in diameter and approximately 6.0 cm in length with tenderness on palpation. She has good peripheral pulses. Psychological Exam: Normal Skin: Positive: Other - See above notes. Minor Trauma Course/Dx - Course Course Of Treatment: X-ray both feet: Negative for fracture as reviewed by Dr. Cisneros and myself however there is a large amount of osteopenia, degenerative bone disease and arterial calcification. Right humerus: No fracture as reviewed by myself and Dr. Cisneros The patient was advised that we will call her if there is any change in the radiology reading of the x-rays. She refuses crutches. She does use a walker at home. - Differential Dx/Diagnosis Provider Diagnosis: Contusion, arm, upper, Sprain of foot, right, Sprain of foot, left Discharge ED - Sign-Out/Discharge Documenting (check all that apply): Patient Departure All imaging exams completed and their final reports reviewed: Yes - Discharge Plan Condition: Fair Disposition: HOME Patient Education Materials: Contusion in Adults (ED) Referrals: Hector Krause MD [Primary Care Provider] - Kaylee Amezcua MD [Medical Doctor] - Additional Instructions: Elevate as much as possible, ambulate as pain permits, apply ice to the sore areas intermittently throughout the next day or 2. Follow-up with the orthopedist for any further concerns or if there is no improvement in symptoms. - Billing Disposition and Condition Condition: FAIR Disposition: Home
== END 2019-12-04 19:32 | disposition home or self-care (01) ==
LOC: UCCORT 17:03
DX: S40.021A Contusion of right upper arm, initial encounter (principal); S93.602A Unspecified sprain of left foot, initial encounter; S93.601A Unspecified sprain of right foot, initial encounter; E11.9 Type 2 diabetes mellitus without complications; E07.9 Disorder of thyroid, unspecified; J44.9 Chronic obstructive pulmonary disease, unspecified; W01.0XXA Fall on same level from slipping, tripping and stumbling without subsequent striking against object, initial encounter; Y93.01 Activity, walking, marching and hiking; Y92.009 Unspecified place in unspecified non-institutional (private) residence as the place of occurrence of the external cause; Z79.890 Hormone replacement therapy; Z79.4 Long term (current) use of insulin; Z79.51 Long term (current) use of inhaled steroids; Z96.642 Presence of left artificial hip joint; Z87.891 Personal history of nicotine dependence; Z88.1 Allergy status to other antibiotic agents; Z88.8 Allergy status to other drugs, medicaments and biological substances
CPT/HCPCS: 99212; G0463